=== PATIENT | female | born 1935 | race Hispanic/Latino ===

== ENCOUNTER → 2024-02-01 09:00 | Outpatient (REF) | payer MEDICARE, OTHER, SELFPAY ==
[2024-02-01 10:13] LABS: ALT (SGPT) 24 U/L (0-35); AST (SGOT) 33 U/L (14-36); Alkaline Phosphatase 125 U/L (38-126); Blood Urea Nitrogen 28 mg/dl (7-17); Calcium 9.3 mg/dl (8.4-10.2); Carbon Dioxide 22 mmol/L (22-30); Chloride 109 mmol/L (98-107); Glucose 172 mg/dl (70-99); Potassium 4.5 mmol/L (3.5-5.1); Sodium 140 mmol/L (135-145); Total Bilirubin 0.7 mg/dl (0.2-1.3); Total Protein 7.6 g/dl (6.3-8.2); eGFR > 60.00
== END ==
LOC: REG 09:00
PROVIDERS: ATTENDING PHYSICIAN Family Medicine
DX: E11.29 Type 2 diabetes mellitus with other diabetic kidney complication (principal); E11.9 Type 2 diabetes mellitus without complications; R79.9 Abnormal finding of blood chemistry, unspecified
CPT/HCPCS: 36415; 80053; 83036

== ENCOUNTER 2024-02-15 15:36 | Emergency (ER) | payer MEDICARE, OTHER, SELFPAY ==
[2024-02-15 15:43] VITALS: BP 131/76
--- NOTE | 2024-02-15 18:45 | ED.GENMED ---
History of Present Illness
General
Chief Complaint: Skin Surface Trauma
Source: patient and family
Time Seen by Provider: 02/15/24 18:23
History of Present Illness
History of Present Illness:
89yoF with a history of type 2 diabetes presenting with her son for evaluation after a fall about 3 hours ago. Patient was walking in the driveway taking the trash out without her cane when she fell. She fell forward sustaining a chin laceration.
She denies any LOC. 911 was called by the neighbors. Patient reports developing right sided rib pain since arriving to the ED. She denies any headache, neck pain, abdominal pain, vomiting. She is not on any blood thinners. Son states that her last
Tdap was 2-3 years ago.
Phy Exam
Physical Exam
Physical Exam:
Through and through chin laceration beneath lip measuring approximately 2cm at the skin. No involvement of cindy border.
General Physical Exam
General Presentation: well appearing and no apparent distress
General age: appears stated age
General Skin: warm and dry
General Habitus: normal
General Mental: alert
ENT Exam
ENT Exam: normocephalic
Eye Exam
Eye Exam: PERRL
Cardiovascular Exam
Cardiovascular Exam: regular rate/rhythm
Pulmonary Exam
Pulmonary Exam: lungs clear (+ R sided chest wall tenderness. No ecchymosis or crepitus. Bilateral breath sounds present. ), no respiratory distress, no crackles and no wheezing
Gastrointestinal Exam
Gastrointestinal Exam: non tender, soft and no pulsatile mass
Neurological Exam
Neurological Exam: alert and no motor deficits
Gretchen Coma Scale
Eye Opening: Spontaneous
Verbal Response: Oriented
Motor Response: Obeys Commands
GCS Total Score: 15
Musculoskeletal Exam
Musculoskeletal Exam: other (No cervical spine tenderness with full ROM. No T/L spine tenderness. )
Course
Orders/Labs/Results
Orders:
Orders
02/15/24 18:44
CT Cervical Spine W/o Iv Contr Urgent
Comment:
Reason For Exam: Fall, head strike
CT Chest W/o Iv Contrast Urgent
Comment:
Reason For Exam: R sided rib pain s/p fall
CT Head W/o Iv Contrast Urgent
Comment:
Reason For Exam: Fall, head strike
02/15/24 18:45
Electrocardiogram (*1) Urgent
Reason for Study: Other
Other Reason for Exam: Fall
EKG- Treatment ONCE
02/15/24 18:56
Lidocaine/Epinephrine/Tetracai [Let Topical Anesthetic Gel] 3 ml TOPICAL NOW STA
02/15/24 19:38
Acetaminophen [Tylenol] 1,000 mg PO NOW STA
02/15/24 20:38
Cephalexin Monohydrate [Keflex] 500 mg PO NOW STA
02/15/24 20:43
Incentive Spirometry [Rx Incentive Spirometry] [RESP] Urgent
Frequency: q1h while awake
Vital Signs
Initial and Last Documented VS:
Initial Vital Signs
Temp Pulse Resp BP Pulse Ox
100.2 F 120 18 131/76 96
02/15/24 15:43 02/15/24 15:43 02/15/24 15:43 02/15/24 15:43 02/15/24 15:43
Last Documented Vital Signs
Temp Pulse Resp BP Pulse Ox
97.8 F 108 18 131/76 96
02/15/24 17:13 02/15/24 17:13 02/15/24 15:43 02/15/24 15:43 02/15/24 15:43
Procedures
Laceration Closure
Chin:
Status of Wound: clean
Size of Wound in cm: 2
Description of Wound Edges: ragged
Preparation: cleaned with saline
Anesthesia: 1% Lidocaine and Topical-LET
Type of Closure: layered closure and interrupted sutures
Skin Closure Material: 5-0 nylon and 5-0 chromic gut
Number of sutures: 10
Additional information:
Layered closure performed for through and through chin laceration. Muscular layer repaired with 3 chronic gut deep sutures. Skin was approximated with 4 5-0 nylon sutures. Remaining mucosal laceration was repaired with 3 5-0 vicryl sutures in a
simple interrupted fashion.
MDM/Problems Addressed
Differential Diagnosis Includes:
89yoF presenting after a mechanical fall earlier this evening. Patient presents with a through and through chin laceration. No reported LOC. Only other complaint is right-sided chest pain which is reproducible on exam. Bilateral breath sounds
present. No other injury seen on secondary survey. Patient is hemodynamically stable. Differential diagnosis includes but is not limited to: Laceration, closed head injury, concussion, intracranial hemorrhage, rib fracture, pulmonary contusion,
pneumothorax
Initial ED plan: Check EKG, CT head, CT cervical spine, CT chest. Repair laceration. Tdap is reportedly up-to-date.
*Critical Care Note
Total Time (30-74mins, 75-104mins- exclusive of procedures): Not Applicable
Update Note
Update Note:
Imaging reveals a questionable subtle nondisplaced fracture of the right sixth rib. No other injuries on imaging. Multiple pulmonary nodules incidentally seen on CT which patient and son were notified of. Copy of CT scan report was given to
patient. Laceration was repaired as above. Patient tolerated well without any immediate complications. She was started on Keflex for prophylaxis. Advised PRN Tylenol for pain. Incentive spirometer provided by nursing staff. Discussed need for
suture removal in 5 days. Advise follow-up with PCP and return to the ED without any signs of infection. Patient discharged in stable condition.
ED Attending Note
-
Portions of this chart may have been created with voice recognition software.� Occasional wrong word or��sound alike� substitutions may have occurred due to the inherent limitations of voice recognition software.
Discharge Plan
Departure
Patient Disposition: Home (Routine Discharge)
Date of Disposition: 02/15/24
Time of Disposition: 20:29
Patient with high blood pressure during this ER visit?: No
Discharge Problem:
Complex laceration of chin, Fall, Closed rib fracture, Incidental lung nodule
Instructions: Laceration
Prescriptions:
New
cephalexin 500 mg capsule
500 mg PO QID Qty: 27 0RF
No Action
glipizide 10 mg Tablet
10 mg PO BID
Hold Instructions: Resume on 05/08/23. Ok to resume after ciprofloxacin regimen completes last day ciprofloxacin 05/07 ok to resume glipizide 05/08
alendronate [Fosamax] 70 mg Tablet
70 mg PO TU
cyanocobalamin (vitamin B-12) 1,000 mcg Tablet
1,000 mcg PO DAILY
folic acid 1 mg Tablet
1 mg PO DAILY
cholecalciferol (vitamin D3) [Vitamin D3] 25 mcg (1,000 unit) Tablet
25 mcg PO DAILY
Januvia 100 mg Tablet
100 mg PO DAILY
Hold Instructions: Resume on 05/08/23. last day ciprofloxacin 05/07 resume Januvia 05/08
insulin glargine [Basaglar KwikPen U-100 Insulin] 100 unit/mL (3 mL) insulin pen
22 unit SC HS
omega-3 fatty acids-fish oil 684-1,200 mg Capsule,Delayed Release(Dr/Ec)
1 cap PO DAILY
Hold Instructions: Resume on 04/18/23.
lutein 6 mg Tablet
6 mg PO BID
multivitamin Tablet
1 tab PO DAILY
mupirocin 2 % ointment
1 applic topical BID Qty: 1 0RF
Patient Comments:
Patient started this medication administration on 05/08/23 in the morning. Patient administered this medication today 04/10/23 @ 07:00.
aspirin 325 mg tablet
325 mg PO DAILY Qty: 1 0RF
Rx Instructions:
Take with food
famotidine 20 mg tablet
20 mg PO HS Qty: 30 0RF
Rx Instructions:
post-op
docusate sodium [Colace] 100 mg capsule
100 mg PO BID Qty: 1 0RF
Saccharomyces boulardii [Florastor] 250 mg capsule
250 mg PO BID Qty: 1 0RF
gabapentin 300 mg capsule
300 mg PO HS Qty: 10 0RF
magnesium hydroxide [Milk of Magnesia] 400 mg/5 mL suspension
30 ml PO HS PRN (Reason: Constipation) Qty: 1 0RF
oxycodone 5 mg tablet
5 - 10 mg PO Q6HPRN PRN (Reason: 1 tab moderate-2 tabs severe pain) Qty: 30 0RF
Rx Instructions:
Dx surgery
ongoing therapy
Post-op use
sennosides [Senokot] 8.6 mg tablet
17.2 mg PO BID Qty: 2 0RF
acetaminophen [Tylenol] 325 mg capsule
650 mg PO QID Qty: 2 0RF
ciprofloxacin HCl 500 mg Tablet
500 mg PO BID 6 Days Qty: 12 0RF
Rx Instructions:
Last day of antibiotics 05/07/23
Referrals:
Alexandria Coronado MD [Family Provider] -
Activity Restrictions/Additional Instructions:
Take antibiotics to prevent infection. Keep wound clean and dry and change dressings daily.
Apply ice to affected area. Take Tylenol 650mg every 6 hours as needed for pain.
Please follow-up with your family doctor for the lung nodules seen on your CT scan.
You will need your stitches removed in 5 days.
Return to the ER with any signs of infection.
Interventions
Interventions:
*Risk Screen - Suicide Last Done: 02/15/24 15:48
*General Assessment Last Done: 02/15/24 15:49
*Neglect/Abuse Screening Last Done: 02/15/24 15:48
ED- Fall Risk Assessment Last Done: 02/15/24 15:41
*ED COVID-19 Vaccine History Last Done: 02/15/24 15:44
ED-Skin Assessment Last Done: 02/15/24 15:49
Discharge Date and Time
Print Language: TUNISIAN
[2024-02-15] MEDS: LET TOPICAL ANESTHETIC GEL 3 ML TOPICAL (19:10)
[2024-02-15] MEDS: TYLENOL 1000 MG PO (19:40)
[2024-02-15] MEDS: KEFLEX 500 MG PO (20:52)
== END 2024-02-15 21:03 | disposition home or self-care (01) ==
LOC: EMR 15:36
PROVIDERS: EMERGENCY PHYSICIAN Emergency Medicine; FAMILY PHYSICIAN Family Medicine
DX: S01.81XA Laceration without foreign body of other part of head, initial encounter (principal); S22.31XA Fracture of one rib, right side, initial encounter for closed fracture; W19.XXXA Unspecified fall, initial encounter; R91.1 Solitary pulmonary nodule; E11.9 Type 2 diabetes mellitus without complications
CPT/HCPCS: 99285; 13131; 70450; 71250; 72125; 93005

== ENCOUNTER → 2024-03-13 13:27 | Outpatient (REF) | payer MEDICARE, OTHER, SELFPAY | LOC: RAD 13:27 | PROVIDERS: ATTENDING PHYSICIAN Specialist; FAMILY PHYSICIAN Family Medicine | DX: M25.512 Pain in left shoulder (principal) | CPT/HCPCS: 73200 ==

== ENCOUNTER 2024-03-20 06:51 | Day surgery (SDC) | payer MEDICARE, OTHER, SELFPAY ==
--- NOTE | 2024-03-02 08:54 | CM ---
Patient is scheduled for an elective L Reverse TSA on 03/20/24- she is a same day patient. Spoke with patient's son, Al, prior to surgery. Patient had a L TK Revision at in 2022. Reintroduced role of Orthopedic Navigator. He reports that he and
patient live in a one floor apartment. Currently patient functions independently and uses a cane. She also has a rolling walker. She has had VN services. PCP is Dr. Alexandria Coronado.
Discussed orthopedic program and post surgical plans. Patient will return home when directed by surgeon. Reviewed MD follow up and transition to outpatient therapy. He is in agreement with tentative plan and states that he will be home with patient
and can assist if needed.
Patient will complete online education.
Plan: Orthopedic Navigator will be involved in the care of patient after surgery and will reassess discharge needs at that time.
[2024-03-03 13:34] VITALS: BMI 26.7
[2024-03-03 14:37] LABS: Hematocrit 37.1 % (37.0-47.0); Hemoglobin 12.8 g/dL (12.0-16.0); Mean Corp Hgb Conc. 34.5 g/dL (33.0-37.0); Mean Corpuscular Hgb 30.8 pg (27.0-31.0); Mean Corpuscular Volume 89.4 fL (81.0-99.0); Mean Platelet Volume 10.3 fL (7.4-10.4); Platelet Count 272 10^3/uL (130-400); Red Blood Cell Count 4.15 10^6/uL (4.20-5.40); Red Cell Dist. Width 14.8 % (11.5-14.5); White Blood Cell Count 4.3 10^3/uL (4.8-10.8)
[2024-03-03 14:53] LABS: ALT (SGPT) 28 U/L (0-35); AST (SGOT) 33 U/L (14-36); Albumin 4.1 g/dl (3.5-5.0); Alkaline Phosphatase 140 U/L (38-126); Blood Urea Nitrogen 36 mg/dl (7-17); Calcium 9.5 mg/dl (8.4-10.2); Carbon Dioxide 24 mmol/L (22-30); Chloride 107 mmol/L (98-107); Estimated Creatinine Clearance 28 ml/min; Glucose 93 mg/dl (70-99); Potassium 4.5 mmol/L (3.5-5.1); Sodium 138 mmol/L (135-145); Total Bilirubin 0.5 mg/dl (0.2-1.3); Total Protein 7.5 g/dl (6.3-8.2); eGFR 54.19
[2024-03-04 12:01] LABS: Glycohemoglobin (HgbA1c) 7.9 % (4.0-5.6)
[2024-03-16 11:02] VITALS: BMI 26.7
--- NOTE | 2024-03-16 11:08 | PTCARENOTE ---
Patients 03/03 A1C-7.9- Ramila @ Dr. Sal office notified
[2024-03-20] VITALS (9 sets, daily range): BP systolic 124–175; BP diastolic 65–91
[2024-03-20 06:58] LABS: Glucose - Point of Care 127 mg/dl (70-99)
[2024-03-20] MEDS: CELEBREX 200 MG PO (07:08)
[2024-03-20] MEDS: TYLENOL 1000 MG PO (07:08)
[2024-03-20] MEDS: NORMOSOL-R 1000 IV (07:09)
[2024-03-20] MEDS: BACTROBAN NASAL 1 GRAM NASAL (07:11)
[2024-03-20 09:25] LABS: Glucose - Point of Care 201 mg/dl (70-99)
[2024-03-20] MEDS: NOVOLOG vial 1 UNITS SC (09:58)
[2024-03-20] MEDS: ANCEF 5 IV (12:02)
== END 2024-03-20 12:27 | disposition home or self-care (01) ==
LOC: SDS 06:51
PROVIDERS: ATTENDING PHYSICIAN Specialist; FAMILY PHYSICIAN Family Medicine
DX: M19.012 Primary osteoarthritis, left shoulder (principal); M25.712 Osteophyte, left shoulder; Z96.612 Presence of left artificial shoulder joint
CPT/HCPCS: 23472; C1776; 36415; 73020; 80053; 82962; 83036; 85027; 87070; 93005

== ENCOUNTER 2024-05-07 10:01 | Outpatient (RCR) | payer MEDICARE, OTHER, SELFPAY | END 2024-05-07 23:59 | disposition home or self-care (01) | LOC: RPT 10:01 | PROVIDERS: ATTENDING PHYSICIAN Physician Assistant Surgical; FAMILY PHYSICIAN Family Medicine | DX: M75.122 Complete rotator cuff tear or rupture of left shoulder, not specified as traumatic (principal); Z96.612 Presence of left artificial shoulder joint | CPT/HCPCS: 97010; 97110; 97140; 97162; 97535 ==

== ENCOUNTER 2024-05-25 17:15 | Outpatient (RCR) | payer MEDICARE, OTHER, SELFPAY | END 2024-05-26 10:33 | disposition home or self-care (01) | LOC: RPT 17:15 | PROVIDERS: ATTENDING PHYSICIAN Physician Assistant Surgical; FAMILY PHYSICIAN Family Medicine | DX: Z47.1 Aftercare following joint replacement surgery (principal); M75.122 Complete rotator cuff tear or rupture of left shoulder, not specified as traumatic; M25.512 Pain in left shoulder; Z73.6 Limitation of activities due to disability; Z96.612 Presence of left artificial shoulder joint | CPT/HCPCS: 97010; 97110; 97140 ==

== ENCOUNTER → 2024-06-05 08:56 | Outpatient (REF) | payer MEDICARE, OTHER, SELFPAY ==
[2024-06-05 10:58] LABS: ALT (SGPT) 20 U/L (0-35); AST (SGOT) 30 U/L (14-36); Albumin 4.3 g/dl (3.5-5.0); Alkaline Phosphatase 84 U/L (38-126); Blood Urea Nitrogen 24 mg/dl (7-17); Calcium 9.4 mg/dl (8.4-10.2); Carbon Dioxide 24 mmol/L (22-30); Chloride 105 mmol/L (98-107); Glucose 117 mg/dl (70-99); HDL Cholesterol 52 mg/dl; LDL Cholesterol, Calculated 103 mg/dl; Potassium 4.6 mmol/L (3.5-5.1); Sodium 142 mmol/L (135-145); Total Bilirubin 0.6 mg/dl (0.2-1.3); Total Cholesterol 178 mg/dl (50-199); Total Protein 7.5 g/dl (6.3-8.2); Triglyceride 118 mg/dl (10-149); Very Low Density Lipoprotein 23 mg/dl (0-30); eGFR > 60.00
[2024-06-05 13:58] LABS: Glycohemoglobin (HgbA1c) 7.1 % (4.0-5.6)
== END ==
LOC: REG 08:56
PROVIDERS: ATTENDING PHYSICIAN Family Medicine
DX: E11.65 Type 2 diabetes mellitus with hyperglycemia (principal); E11.29 Type 2 diabetes mellitus with other diabetic kidney complication; R80.9 Proteinuria, unspecified; E78.00 Pure hypercholesterolemia, unspecified; E11.9 Type 2 diabetes mellitus without complications; N17.9 Acute kidney failure, unspecified
CPT/HCPCS: 36415; 80053; 80061; 83036

== ENCOUNTER → 2025-01-29 08:50 | Outpatient (REF) | payer MEDICARE, OTHER, SELFPAY ==
[2025-01-29 10:22] LABS: ALT (SGPT) 16 U/L (0-35); AST (SGOT) 22 U/L (14-36); Albumin 3.9 g/dl (3.5-5.0); Alkaline Phosphatase 77 U/L (38-126); Blood Urea Nitrogen 25 mg/dl (7-17); Carbon Dioxide 20 mmol/L (22-30); Chloride 116 mmol/L (98-107); Glucose 86 mg/dl (70-99); Potassium 4.1 mmol/L (3.5-5.1); Sodium 144 mmol/L (135-145); Total Bilirubin 0.5 mg/dl (0.2-1.3); Total Protein 7.2 g/dl (6.3-8.2); eGFR > 60.00
[2025-01-29 10:56] LABS: Microalbumin, Random Urine 8.8 mg/dl (0.6-1.7); Microalbumin/creatinine Ratio 134.6 mg/g
[2025-01-29 11:23] LABS: Glycohemoglobin (HgbA1c) 7.9 % (4.0-5.6)
== END ==
LOC: REG 08:50
PROVIDERS: ATTENDING PHYSICIAN Family Medicine; FAMILY PHYSICIAN Family Medicine
DX: E11.65 Type 2 diabetes mellitus with hyperglycemia (principal); E11.29 Type 2 diabetes mellitus with other diabetic kidney complication
CPT/HCPCS: 36415; 80053; 82043; 82570; 83036

== ENCOUNTER 2025-05-18 05:35 | Inpatient (IN) | payer MEDICARE, OTHER, SELFPAY ==
[2025-05-17 21:53] VITALS: BP 115/71
[2025-05-17 22:09] LABS: Hematocrit 41.4 % (37.0-47.0); Hemoglobin 14.7 g/dL (12.0-16.0); Mean Corp Hgb Conc. 35.5 g/dL (33.0-37.0); Mean Corpuscular Volume 87.7 fL (81.0-99.0); Nucleated Red Blood Cells % 0 %; Platelet Count 248 10^3/uL (130-400); Red Cell Dist. Width 13.3 % (11.5-14.5)
[2025-05-17 22:34] LABS: ALT (SGPT) 22 U/L (0-35); AST (SGOT) 21 U/L (14-36); Albumin 3.6 g/dl (3.5-5.0); Alkaline Phosphatase 75 U/L (38-126); Blood Urea Nitrogen 72 mg/dl (7-17); Calcium 8.1 mg/dl (8.4-10.2); Carbon Dioxide 21 mmol/L (22-30); Chloride 95 mmol/L (98-107); Glucose 335 mg/dl (70-99); Lipase 152 U/L (23-300); Potassium 4.4 mmol/L (3.5-5.1); Sodium 126 mmol/L (135-145); Total Protein 7.0 g/dl (6.3-8.2); eGFR 43.27
[2025-05-18] VITALS (19 sets, daily range): BP systolic 77–134; BP diastolic 41–68; BMI 23.1
[2025-05-18] MEDS: NSS 500 IV ×2 (01:14→05:19)
[2025-05-18] MEDS: ZOFRAN 4 MG IV (01:14)
[2025-05-18] MEDS: DILAUDID 0.5 MG IV ×4 (01:15→23:49)
--- NOTE | 2025-05-18 01:52 | ED.GENMED ---
History of Present Illness
General
Chief Complaint: Abdominal Pain
Source: patient and family
Time Seen by Provider: 05/18/25 00:39
History of Present Illness
History of Present Illness:
Note:
CHIEF COMPLAINT(S)
Suspected gallbladder problem.
HISTORY OF PRESENT ILLNESS
The patient is an 89-year-old female presenting with abdominal discomfort, specifically suspecting gallbladder issues. The symptoms began during a recent trip to [place]. While there, the patient saw two doctors and had an ultrasound, suspecting a
gallbladder blockage. No previous history of gallbladder issues was noted. The patient reports feeling nauseous but has not vomited. She experiences a sensation of needing to vomit, accompanied by abdominal pain and difficulty with bowel movements,
noting very limited output. There is reported tenderness on the right side of the abdomen. Despite these symptoms, there are no signs of diarrhea or respiratory distress. The patient was advised against surgical intervention in [place] and returned
to seek treatment closer to home.
Additional historian
Son states that he wanted to bring her back to the [facility] to deal with her gallbladder issues
PAST MEDICAL AND SURGICAL HISTORY
The patient has a history of diabetes and has undergone knee and shoulder replacement surgeries.
CHRONIC MEDICAL CONDITIONS SIGNIFICANTLY AFFECTING CARE
Diabetes.
ALLERGIES
No known medication allergies.
PAST SURGICAL HISTORY
Knee replacement and shoulder replacement.
MEDICATIONS
The patient is currently not taking any blood thinning medications.
REVIEW OF SYSTEMS
- Gastrointestinal: Abdominal pain, nausea without vomiting, difficulty with bowel movements.
- General: No respiratory distress.
PHYSICAL EXAM
General: Alert, no acute distress.
Skin: Warm, dry.
Head: Normocephalic, atraumatic.
Neck: Supple, trachea midline.
Eye Ears, Nose, Mouth and Throat: Oral mucosa moist.
Cardiovascular: Normal peripheral perfusion, No edema.
Respiratory: Respirations are non-labored.
Gastrointestinal: Severe tenderness noted in the right upper abdomen, most significantly in the right upper quadrant, without rebound or guarding.
Back: Normal range of motion, Normal alignment.
Musculoskeletal: Normal range of motion, normal strength.
Neurological: Alert and oriented to person, place, time, and situation, No focal neurological deficit observed.
Psychiatric: Cooperative, appropriate mood & affect.
PLAN
1. Administer pain management as necessary.
2. Obtain blood work and imaging of the abdomen to assess for gallbladder pathology.
3. Monitor for changes in the patient�s condition and respond appropriately.
DIFFERENTIAL DIAGNOSIS
The Differential Diagnosis includes, in no particular order and is not limited to:
1. Cholelithiasis
2. Cholecystitis
3. Biliary colic
4. Pancreatitis
5. Peptic ulcer disease
6. Gastroenteritis
7. Hepatitis
8. Intestinal obstruction
9. Gastritis
10. Appendicitis
Disposition:
SUMMARY OF ENCOUNTER
The patient is an 89-year-old female who presented to the emergency department with persistent abdominal pain. She was recently diagnosed with an issue related to the gallbladder while she was in [place]. The patient does not have a history of
diabetes. Upon evaluation, she was found to have moderate to severe abdominal pain, although she has no leukocytosis. Her CBC is within normal limits. Chemistry results revealed hyponatremia with sodium at 126 mmol/L, elevated creatinine at 1.2
mg/dL, and blood glucose elevated at 335 mg/dL. Lactic acid levels were normal at 1.7 mmol/L. Both troponin and lipase levels were normal. A CT scan indicated acute cholecystitis with questionable evidence of gangrene. The case was discussed with
General Surgery and with the hospitalist for further management.
DISPOSITION
Admit for further management of hyponatremia, hyperglycemia, and acute cholecystitis.
ASSESSMENT
Acute cholecystitis with questionable gangrene and electrolyte imbalances such as hyponatremia and hyperglycemia.
EMERGENCY TREATMENTS ADMINISTERED
IV piperacillin-tazobactam was administered, and IV fluids were given.
MANAGEMENT OF THE PATIENTS CARE WAS DISCUSSED WITH
Discussion with General Surgery (Dr. Cruz) and the hospitalist, regarding the patients case and management plan.
PLAN
Admit for further management of hyponatremia, hyperglycemia, and acute cholecystitis. Implement appropriate interventions to correct electrolyte imbalances and address acute gallbladder issues.
INDEPENDENT REVIEW OF LABS AND INTERPRETATION OF TESTS
- My independent review of the CBC reveals no leukocytosis.
- My independent review of a basic chemistry panel indicates hyponatremia with sodium at 126 mmol/L, elevated creatinine at 1.2 mg/dL, and blood glucose at 335 mg/dL.
- My independent review of lactic acid shows normal levels at 1.7 mmol/L.
- lipase levels were normal.
RADIOLOGY RESULTS
- My independent interpretation of the CT scan shows acute cholecystitis with questionable evidence of gangrene changes.
MEDICATION RECONCILIATION
IV piperacillin-tazobactam (Zosyn) administered in the ED.
MEDICAL DECISION MAKING
- Number and Complexity of Problems Addressed: Chronic conditions affecting care include hyponatremia, hyperglycemia, and acute cholecystitis.
- Data:
- Category 1: Lab tests reviewed include CBC, chemistry panel, lactic acid, troponin, and lipase. CT scan independently interpreted.
- Category 3: Management was discussed with General Surgery and the hospitalist.
- Risk: Admission considered necessary due to electrolyte imbalances and the potential severity of cholecystitis with questionable gangrene.
DIAGNOSIS
- Acute cholecystitis with potential gangrene changes (ICD-10: K81.0).
- Hyponatremia (ICD-10: E87.1).
- Hyperglycemia, unspecified (ICD-10: R73.9).
Phy Exam
Physical Exam
Physical Exam:
.
Course
Orders/Labs/Results
Orders:
Orders
05/17/25 22:00
Complete Blood Count/With Diff Urgent
Comprehensive Metabolic Panel Urgent
Lactic Acid Urgent
Lipase Urgent
05/18/25 00:48
CT Abd/Pel (IV only)-DH only Urgent
Comment:
Reason For Exam: diffuse abd pain, h/o GB issues
Urinalysis Reflex To Culture Urgent
Date Specimen was Collected: 05/18/25
Time Specimen was Collected: 01:20
0.9% Sodium Chloride 500 ml [Nss] 500 ml IV BOLUS
HYDROmorphone [Dilaudid] 0.5 mg IV NOW STA
Ondansetron Injectable [Zofran] 4 mg IV NOW STA
05/18/25 01:09
Lactic Acid Urgent
05/18/25 01:51
Piperacillin/Tazo 3.375 Gram [Zosyn] 3.375 gram in 50 ml IV NOW
Abnormal Lab Results
05/17/25 05/18/25
22:00 02:43
WBC 14.3 H 10^3/uL
(4.8-10.8)
MCH 31.1 H pg
(27.0-31.0)
Abs Immat Gran (auto) 0.1 H 10^3/uL
(0-0.05)
Absolute Neuts (auto) 12.9 H 10^3/uL
(1.4-6.5)
Absolute Lymphs (auto) 0.4 L 10^3/uL
(1.2-3.4)
Absolute Monos (auto) 0.8 H 10^3/uL
(0.1-0.6)
Immature Gran % 0.6 H %
(0-0.5)
Neutrophils % 90.0 H %
(42.2-75.2)
Lymphocytes % 3.1 L %
(20.5-51.1)
Sodium 126 L mmol/L
(135-145)
Chloride 95 L mmol/L
(98-107)
Carbon Dioxide 21 L mmol/L
(22-30)
BUN 72 H mg/dl
(7-17)
Creatinine 1.2 H mg/dL
(0.6-1.0)
Glucose 335 H mg/dl
(70-99)
Calcium 8.1 L mg/dl
(8.4-10.2)
POC Glucose 318 H mg/dl
(70-99)
05/17/25 22:00
05/17/25 22:00
Vital Signs
Initial and Last Documented VS:
Initial Vital Signs
Temp Pulse Resp BP Pulse Ox
97.4 F 106 20 115/71 99
05/17/25 21:53 05/17/25 21:53 05/17/25 21:53 05/17/25 21:53 05/17/25 21:53
Last Documented Vital Signs
Temp Pulse Resp BP Pulse Ox
97.4 F 106 20 134/68 94
05/17/25 21:53 05/17/25 21:53 05/17/25 21:53 05/18/25 02:10 05/18/25 02:15
*Pulse Oximetry
SaO2: 96
Oxygen Mode of Delivery: Room air
Patient hypoxic: no
*Critical Care Note
Total Time (30-74mins, 75-104mins- exclusive of procedures): 30 minutes
ED Attending Note
-
Portions of this chart may have been created with voice recognition software.� Occasional wrong word or��sound alike� substitutions may have occurred due to the inherent limitations of voice recognition software.
Discharge Plan
Departure
Patient Disposition: Admit
Date of Disposition: 05/18/25
Time of Disposition: 01:51
Admit to: Telemetry
Presentation/result/management discussed w/ accepting MD/DO: Hospitalist
Discharge Problem:
Acute cholecystitis, Acute hyperglycemia
Prescriptions:
No Action
alendronate [Fosamax] 70 mg Tablet
70 mg PO TU
cyanocobalamin (vitamin B-12) 1,000 mcg Tablet
1,000 mcg PO DAILY
folic acid 1 mg Tablet
1 mg PO DAILY
cholecalciferol (vitamin D3) [Vitamin D3] 25 mcg (1,000 unit) Tablet
25 mcg PO DAILY
insulin glargine [Basaglar KwikPen U-100 Insulin] 100 unit/mL (3 mL) insulin pen
22 unit SC HS
omega-3 fatty acids-fish oil 684-1,200 mg Capsule,Delayed Release(Dr/Ec)
1 cap PO DAILY
lutein 6 mg Tablet
6 mg PO BID
multivitamin Tablet
1 tab PO DAILY
mupirocin 2 % ointment
1 applic topical BID Qty: 1 0RF
Patient Comments:
glipizide 10 mg Tablet
10 mg PO BID
Januvia 100 mg Tablet
100 mg PO DAILY
Ozempic 0.25 mg or 0.5 mg (2 mg/3 mL) Pen Injector
0.25 mg SC WEEKLY
docusate sodium [Colace] 100 mg capsule
100 mg PO BID PRN (Reason: stool softner)
acetaminophen 500 mg capsule
1,000 mg PO Q6H MDD 4000mg PRN (Reason: Pain) Qty: 60 0RF
aspirin 325 mg tablet
325 mg PO DAILY Qty: 30 0RF
celecoxib [Celebrex] 100 mg capsule
100 mg PO BID Qty: 30 0RF
ondansetron 4 mg tablet,disintegrating
4 mg PO Q8H Qty: 14 0RF
oxycodone 5 mg tablet
5 mg PO Q6H PRN (Reason: Pain) Qty: 30 0RF
cefadroxil 500 mg capsule
500 mg PO BID Qty: 14 0RF
docusate sodium [Colace] 100 mg capsule
100 mg PO BID Qty: 14 0RF
Referrals:
Alexandria Coronado MD [Family Provider, Family Practice]
Interventions
Interventions:
*Risk Screen - Suicide Last Done: 05/18/25 00:58
*General Assessment Last Done: 05/17/25 21:53
*Neglect/Abuse Screening Last Done: 05/18/25 00:58
*ED- Fall Risk Assessment Last Done: 05/18/25 00:58
*ED COVID-19 Vaccine History Last Done: 05/18/25 00:58
*ED Influenza Vaccine History Last Done: 05/18/25 00:58
TY-Gvthag-Jvreeyafll Assessment Last Done: 05/18/25 00:58
Discharge Date and Time
Print Language: [email or web address]
[2025-05-18] MEDS: ZOSYN 50 IV ×4 (02:13→19:50)
[2025-05-18 02:44] LABS: Glucose - Point of Care 318 mg/dl (70-99)
[2025-05-18] MEDS: NOVOLOG vial 6 UNITS SC (02:51)
--- NOTE | 2025-05-18 05:15 | HPS.HSE ---
Family Physician
-
Family Physician: Alexandria Coronado
Chief Complaint
-
Abd Pain
History of Present Illness
Patient is an 89y F with PMH significant for DM-II who presents to ED complaining of abdominal pain and N/V. History obtained from patient and family with family serving as educational interpreter. Patient has been complaining of mild / intermittent R
flank and abdominal pain for about 2 weeks now. Initially, symptoms were attributed to musculoskeletal source; however, they increased significantly last week. Patient was visiting family in [place] at the time. She was seen by a physician there
who suspected gallbladder disease and she was placed on multiple medications - simethicone, probiotics, antispasmodics, injectable Toradol, etc - with no significant improvement in her symptoms. On Saturday she was seen by a second physician who
recommended surgery for her gallbladder. Patient / family did not wish to pursue this in [place] and returned home to [place] for further evaluation.
Patient presented directly to the ED upon her return.
Medical History
Past Medical History
Past Medical History: Reports Other
Additional Past Medical History:
DM-II
Osteoporosis
CKD
Past Surgical History: Reports Other
Additional Past Surgical History:
Bilateral TKA
Left TSA
Social History
Tobacco: Non-smoker
Alcohol: None
Drug: None
Family History
Family History: Not pertinent
Allergies / Home Medications
Allergies reflects when Allergies were last updated in [facility].
Home Medications with original date entered in [facility]
Allergy/Medication List:
Allergies
Allergy/AdvReac Type Severity Reaction Status Date / Time
vancomycin AdvReac vancomycin Verified 05/17/25 21:52
infusion
reaction
04/28/23
Home Medications
alendronate 70 mg tablet (Fosamax) 70 mg PO TU 09/01/22
cholecalciferol (vitamin D3) 25 mcg (1,000 unit) tablet (Vitamin D3) 25 mcg PO DAILY Supplement 09/01/22
cyanocobalamin (vitamin B-12) 1,000 mcg tablet 1,000 mcg PO DAILY Supplement 09/01/22
folic acid 1 mg tablet 1 mg PO DAILY Supplement 09/01/22
insulin glargine 100 unit/mL (3 mL) subcutaneous pen (Basaglar KwikPen U-100 Insulin) 18 unit SC HS Diabetes 09/01/22
omega-3 fatty acids-fish oil 684 mg-1,200 mg capsule,delayed release 1 cap PO DAILY Supplement 09/01/22
lutein 6 mg tablet 6 mg PO BID Supplement 02/04/23
multivitamin 1 tab PO DAILY Supplement 02/07/23
glipizide 10 mg tablet 10 mg PO BID 03/12/24
sitagliptin phosphate 100 mg tablet (Januvia) 100 mg PO DAILY 03/12/24
Review of Systems
-
History Source: Patient
A 12 point ROS was completed and negative except as noted: Yes
Constitutional: Reports Fatigue; Denies Fever or Chills
Respiratory: Denies Cough or Trouble Breathing
Cardiac: Denies Chest Pain or Palpitations
Abdomen/GI: Reports Abdominal Pain, Nausea and Vomiting; Denies Diarrhea
: Denies Dysuria or Frequency
Musculoskeletal: Denies Joint Pain or Edema
Neurological: Denies Dizzy or Headache
Physical Exam
Vital Signs
Vital Signs
Temp Pulse Resp BP Pulse Ox
97.4 F 106 20 134/68 94
05/17/25 21:53 05/17/25 21:53 05/17/25 21:53 05/18/25 02:10 05/18/25 02:15
Physical Exam
General: Other (89y F in no acute distress.)
HEENT: Other (Dry MM. Neck supple.)
Respiratory: Clear; No Wheezes, Rales or Rhonchi
Cardiac: S1/S2 and Regular Rhythm; No Murmur
GI: Other (Adomen is soft. Pos RUQ tenderness with guarding.)
Musculoskeletal: No Clubbing, No Cyanosis and No Edema
Neuro: AO x 3
Laboratory Results
-
05/17/25 22:00
05/17/25 22:00
Laboratory Results
Lactic Acid 1.7 mmol/L (0.7-2.0) 05/18/25 01:09
Total Bilirubin 0.8 mg/dl (0.2-1.3) 05/17/25 22:00
AST 21 U/L (14-36) 05/17/25 22:00
ALT 22 U/L (0-35) 05/17/25 22:00
Alkaline Phosphatase 75 U/L (38-126) 05/17/25 22:00
Lipase 152 U/L (23-300) 05/17/25 22:00
Impression/Plan
-
A/P: Patient is an 89y F with PMH significant for DM-II and CKD who presents to ED complaining of abdominal pain.
Acute Cholecystitis
Sepsis secondary to the above
- Admit for further evaluation and treatment.
- Patient presents with tachycardia, tachypnea, leukocytosis and exam / imaging consistent with cholecystitis.
- IV Zosyn, NPO, IVFs, pain control.
- Surgery consulted for further evaluation / possible cholecystectomy.
- Follow for clinical improvement.
Hyponatremia
JOANIE on CKD II
- Na = 126 (corrected to 130 for hyperglycemia). SCr = 1.2 compared to baseline of 0.9.
- Likely hypovolemia due to poor intake, N/V.
- Possible increased ADH due to pain / nausea.
- IVFs overnight and follow for changes in labs / lytes.
DM-II
- Hyperglycemic on admission - likely due to acute infection.
- Continue basal insulin at decreased dose while NPO.
- Hold PO medications acutely.
- Follow glucose and cover with SSI as needed.
- Update A1C.
DVT Prophylaxis: SCDs
Code Status: Full
[2025-05-18] MEDS: LR 1000 IV ×2 (08:06→19:50)
[2025-05-18] MEDS: PROTONIX IV 40 MG IV (08:06)
[2025-05-18 08:13] LABS: Glucose - Point of Care 83 mg/dl (70-99)
--- NOTE | 2025-05-18 09:16 | CON.GS ---
Medical History
-
Chief Complaint: RUQ pain
History of Present Illness:
Patient is an 89 yo F with a PMH notable for osteoporosis, IDDM, CKD, and s/p bl TKA and L TSA who presents with 2 to 3 weeks of upper abdominal discomfort. Patient is Solomon Islander-speaking only and a poor historian. The majority of her history was
obtained through chart review and in speaking directly with the son. He reports issues with abdominal discomfort and nausea for 2 to 3 weeks. No fevers or chills. No diarrhea. No jaundice, pale stools, or tea colored urine. Denies any prior
attacks of abdominal discomfort or issues as a relates to her gallbladder. No family history of gallbladder disease.
Past Medical History
Past Medical History: IDDM, Renal Failure and Other (Osteoporosis)
Past Surgical History: Orthopedic (bl TKA, L TSA)
Social History
Tobacco: Non-Smoker
Alcohol: None
Drug: None
Family History
Family History: Reviewed & Noncontributory
Allergies / Home Medications
Allergy/AdvReac Type Severity Reaction Status Date / Time
vancomycin AdvReac vancomycin Verified 05/17/25 21:52
infusion
reaction
04/28/23
�Medication �Instructions �Recorded �Confirmed �Type
alendronate 70 mg tablet (Fosamax) 70 mg PO TU 09/01/22 05/18/25 History
cholecalciferol (vitamin D3) 25 25 mcg PO DAILY Supplement 09/01/22 05/18/25 History
mcg (1,000 unit) tablet (Vitamin
D3)
cyanocobalamin (vitamin B-12) 1,000 mcg PO DAILY Supplement 09/01/22 05/18/25 History
1,000 mcg tablet
folic acid 1 mg tablet 1 mg PO DAILY Supplement 09/01/22 05/18/25 History
omega-3 fatty acids-fish oil 684 1 cap PO DAILY Supplement 09/01/22 05/18/25 History
mg-1,200 mg capsule,delayed release
lutein 6 mg tablet 6 mg PO BID Supplement 02/04/23 05/18/25 History
multivitamin 1 tab PO DAILY Supplement 02/07/23 05/18/25 History
glipizide 10 mg tablet 10 mg PO BID 03/12/24 05/18/25 History
sitagliptin phosphate 100 mg 100 mg PO DAILY 03/12/24 05/18/25 History
tablet (Januvia)
insulin degludec 100 unit/mL (3 18 unit SC HS 05/18/25 05/18/25 History
mL) subcutaneous pen
psyllium 1 packet PO DAILYPRN PRN 05/18/25 05/18/25 History
constipation
semaglutide 0.25 mg or 0.5 mg (2 0.25 mg SC SA 05/18/25 05/18/25 History
mg/3 mL) subcutaneous pen injector
(Ozempic)
Review of Systems
-
A 10 point review of systems was completed, and was negative except as per HPI.
Physical Exam
Vital Signs
Temp Pulse Resp BP Pulse Ox
97.4 F 87 25 105/63 97
05/17/25 21:53 05/18/25 09:00 05/18/25 09:00 05/18/25 09:00 05/18/25 09:00
05/17/25 05/18/25 05/19/25
06:59 06:59 06:59
Actual Weight 53.6 kg
Body Mass Index (BMI) 23.1
Lab Results
05/17/25 22:00
05/17/25 22:00
WBC 14.3 10^3/uL (4.8-10.8) H 05/17/25 22:00
Hgb 14.7 g/dL (12.0-16.0) 05/17/25 22:00
Hct 41.4 % (37.0-47.0) 05/17/25 22:00
Plt Count 248 10^3/uL (130-400) 05/17/25 22:00
Abs Immat Gran (auto) 0.1 10^3/uL (0-0.05) H 05/17/25 22:00
Neutrophils % 90.0 % (42.2-75.2) H 05/17/25 22:00
Physical Exam
General: Other (Weak, frail)
HEENT: Normocephalic and Anicteric
Respiratory: Non Labored Respirations
Cardiac: Regular Rhythm
GI: Soft, Non Distended, Tender (RUQ, positive Brandon's sign) and Other (Focally peritoneal in RUQ)
Skin: Warm and Dry
Neuro: Nonfocal/Grossly Intact
Data Reviewed
-
CT Scan: Image Personally Visualized and interpreted
Labs: Labs Reviewed by me
Assessment / Plan
-
Patient is an 89 yo F p/w acute cholecystitis
The natural history and pathophysiology of biliary and stone disease was discussed. Anatomy was reviewed utilizing pictorial images. Workup thus far including labs and CT scan imaging were reviewed. Options for management including medical
management with antibiotics and bowel rest, procedural management with IR cholecystostomy tube, and surgical management with cholecystectomy were considered and discussed. Pros and cons of all approaches was discussed. Specifically, we discussed
likely failure of medical management with slow decline in her health and possible , logistical issues with cholecystostomy tube placement and delays in decision making regarding cholecystectomy versus IR tube drainage for life, and surgical
risks. She is at increased surgical risks given her age, general medical condition, and delay in presentation. Patient and family would like to proceed with surgical management.
Plan for a laparoscopic possible open cholecystectomy with possible cholangiogram. The procedure itself, as well as the risks, benefits, and alternatives was discussed. Specifically, we we discussed the risks of bleeding, infection, injury to
surrounding structures (bowel, bile ducts), CBD injury, bile leak, and general anesthetic complications. Of note, a nuanced discussion was had regarding the potential need for a subtotal cholecystectomy. Typical post procedure recovery was
discussed. All questions answered.
-- Lap kam with IOC
-- NPO, IVF
-- Abx: Zosyn
-- Admitted to Medicine for DM
--- NOTE | 2025-05-18 09:32 | W.SUR.PREOP ---
Addendum entered and electronically signed by Ephraim Cruz MD 05/18/25 16:43:
Case has been moved to tomorrow due to OR availability. Nurse and family upated.
Original Note:
Pre-Operative Surgical Note
-
I have examined this patient prior to the performance of the scheduled procedure.
The patient's condition is unchanged from the time of the current History and
Physical and the patient is able to undergo the scheduled procedure.
--- NOTE | 2025-05-18 09:44 | EDCM ---
CM reviewed chart and met with pt's son Al bedside in ED. Pt is primarily Vietnamese speaking. They live in 2 story home along with pt's other son, [address], first floor half bath, full flight to second floor bedroom and full bath.
Independent in personal care and ambulation, uses cane. Needs assistance with ADLs but still cooks per son.
Confirms prescription coverage.
Hx VN in past, unsure of agency, Hx SNF 10 years ago.
PCP: Alexandria Coronado
Pharmacy: [facility] in [facility]
Anticipate discharge home, CM will continue to follow for any discharge planning needs.
[2025-05-18 11:09] LABS: Urine Character Clear (Clear)
--- NOTE | 2025-05-18 11:18 | W.PN.HOSP.TC ---
Today's Communication/Plan
-
IV antibiotics
Plan for laparoscopic low cystectomy with intraoperative cholangiogram.
IV fluids.
Monitor and manage blood glucose.
Follow for hyponatremia postoperatively.
Assessment / Plan
Assessment / Plan
Impression/plan
A/P: Patient is an 89y F with PMH significant for DM-II and CKD who presents to ED complaining of abdominal pain.
Acute Cholecystitis
Sepsis secondary to the above
- Patient presents with tachycardia, tachypnea, leukocytosis and exam / imaging consistent with cholecystitis.
- IV Zosyn, NPO, IVFs, pain control.
- Surgery consulted with plan for laparoscopic cholecystectomy and intraoperative cholangiogram
Hyponatremia
JOANIE on CKD II
- Na = 126 (corrected to 130 for hyperglycemia). SCr = 1.2 compared to baseline of 0.9.
- Likely hypovolemia due to poor intake, N/V.
- Possible increased ADH due to pain / nausea.
- IVFs overnight and follow for changes in labs / lytes.
DM-II. Preadmission regimen including Ozempic, Januvia, glipizide, Lantus 18 units at bedtime,
- Hyperglycemic on admission - likely due to acute infection.
- Continue basal insulin at decreased dose while NPO.
- Hold PO medications acutely.
- Follow glucose and cover with SSI as needed.
- Update A1C.
DVT Prophylaxis: SCDs
Code Status: Full
Anticipated Discharge: > 48 hours
Subjective/Interval History
-
Date of Service: May 18, 2025
Objective Data
-
Vital Signs:
Vital Signs
Temp Pulse Resp BP Pulse Ox
97.4 F 96 19 105/57 96
05/17/25 21:53 05/18/25 11:00 05/18/25 11:00 05/18/25 11:00 05/18/25 11:00
I&O
05/17/25 05/18/25 05/19/25
06:59 06:59 06:59
Output Total 350 / 350
Balance -350 / -350
Physical Exam
-
General: Well Developed and No Apparent Distress
HEENT: Normocephalic, Atraumatic and Moist Mucous Membranes
Respiratory: Clear to Auscultation
Cardiac: Regular Rhythm and S1/S2; Negative Murmur, Rub or Gallop
GI: Soft, Nondistended, Normal Bowel Sounds and Other (Right upper quadrant tenderness); Negative Nontender or Organomegaly
Rectal: Deferred by Provider
Musculoskeletal: No Clubbing, No Cyanosis and No Edema
Skin: Negative Rash
Neuro: Awake, Alert, Oriented and Nonfocal/Grossly Intact
[2025-05-18 11:20] LABS: Urine Squamous Cell >30 /LPF (Few)
[2025-05-18 11:21] LABS: Urine Red Blood Cell 0-2 /HPF (0-2)
[2025-05-18 12:15] LABS: Glucose - Point of Care 88 mg/dl (70-99)
--- NOTE | 2025-05-18 13:26 | PTCARENOTE ---
Patient arrived to IMU from ED. Slid from stretcher to bed. AOx3. Maori speaking. Quill Machine Operator utilized. Son at bedside. NSR on monitor. BP soft, but MAP >65. Assisted to bedside commode assist x1. Denies pain. NPO for OR. CHG wipes done. LR running
at 100/hr. Call tilley within reach, bed in lowest position, and bed of wheels locked.
--- NOTE | 2025-05-18 16:28 | VATNOTE ---
RUE swelling distal cms intact, md skelton aware, will order us
--- NOTE | 2025-05-18 17:01 | W.PN.UPDATE ---
Update Note
Progress Note Update
Cross cover--> I was informed canceled the OR today/started back on diabetic diet tonight and n.p.o. after midnight.
[2025-05-18 17:16] LABS: Glucose - Point of Care 112 mg/dl (70-99)
[2025-05-18 23:17] LABS: Glucose - Point of Care 152 mg/dl (70-99)
[2025-05-18] MEDS: LANTUS 0.1 UNITS SC (23:46)
[2025-05-19] VITALS (16 sets, daily range): BP systolic 93–128; BP diastolic 45–66; BMI 23.6
[2025-05-19] MEDS: ZOSYN 50 IV ×4 (02:56→19:36)
--- NOTE | 2025-05-19 04:02 | PTCARENOTE ---
Pt having pain over night, see mar for social media marketer. Pt NPO at midnight plan for OR 05/19. US RUE shows no evidence of venous thrombosis. Son at bed side to help with care when needed. Pt requiring 2L NC while sleeping to maintain spo2 goal 92%.
Respirations even unlabored. Assessment care and vitals as charted.
[2025-05-19 07:21] LABS: ALT (SGPT) 29 U/L (0-35); AST (SGOT) 39 U/L (14-36); Albumin 2.6 g/dl (3.5-5.0); Alkaline Phosphatase 87 U/L (38-126); Blood Urea Nitrogen 32 mg/dl (7-17); Calcium 7.6 mg/dl (8.4-10.2); Carbon Dioxide 25 mmol/L (22-30); Chloride 109 mmol/L (98-107); Estimated Creatinine Clearance 27 ml/min; Glucose 93 mg/dl (70-99); Potassium 4.1 mmol/L (3.5-5.1); Sodium 137 mmol/L (135-145); Total Protein 5.1 g/dl (6.3-8.2); eGFR 53.85
[2025-05-19 07:29] LABS: Hematocrit 33.4 % (37.0-47.0); Hemoglobin 11.3 g/dL (12.0-16.0); Mean Corp Hgb Conc. 33.8 g/dL (33.0-37.0); Mean Corpuscular Volume 90.8 fL (81.0-99.0); Platelet Count 231 10^3/uL (130-400); Red Cell Dist. Width 13.9 % (11.5-14.5)
[2025-05-19] MEDS: PROTONIX IV 40 MG IV (07:35)
[2025-05-19] MEDS: DILAUDID 0.5 MG IV (07:35)
[2025-05-19] MEDS: LR 1000 IV ×2 (07:36→20:46)
[2025-05-19 07:54] LABS: Glucose - Point of Care 87 mg/dl (70-99)
--- NOTE | 2025-05-19 12:01 | W.IMMPOSTOP ---
Surgical Immed Post Op Note
-
Primary Surgeon: Alayna
Assisting: Taylor REYES
Pre-op Diagnosis: ACC
Post-op Diagnosis: Same
Procedure Performed: Robotic cholecystectomy with intraoperative near infared imaging of major extrahepatic bile ducts
Anesthesia Type: GETA
Specimen / Cultures: Gallbladder
Estimated Blood Loss: 25cc
Complications: None immediate
Operative Findings: Tensely distended severely inflamed gallbladder with early gangrenous changes; edematous tissues adherent to the infundibulum were gently swept down bluntly; some yellow pus encountered and hydropic fluid during gallbladder
dissection, many tiny pigmented stones spilled and were maximally retrieved
--- NOTE | 2025-05-19 12:04 | OR.RPT ---
Operative Report
Operative Report
Primary Surgeon: Alayna
Assisting: Taylor REYES
Pre-op Diagnosis: Acute calculous cholecystitis
Post-op Diagnosis: Same
Procedure Performed: Robotic cholecystectomy with intraoperative near infared imaging of major extrahepatic bile ducts
Anesthesia Type: GETA
Specimen / Cultures: Gallbladder
Estimated Blood Loss: 25cc
Complications: None immediate
Operative Findings: Tensely distended severely inflamed gallbladder with early gangrenous changes; edematous tissues adherent to the infundibulum were gently swept down bluntly; some yellow pus encountered and hydropic fluid during gallbladder
dissection, many tiny pigmented stones spilled and were maximally retrieved
DOS: 05/19/25
Indications: This 89F developed right upper quadrant/epigastric pain and on workup was found to have acute calculous cholecystitis with normal liver enzymes. Laparoscopic cholecystectomy with robotic assist was elected.
Description of procedure: The patient was placed on the operating table in the supine position. General anesthesia was induced. A time-out was completed verifying correct patient, procedure, site, positioning, and special equipment prior to
beginning this procedure. An orogastric tube was placed. The abdomen was prepped and draped in the usual sterile fashion. A stab incision was made in left upper quadrant and the Veress needle was inserted. Proper position was confirmed by aspiration
and saline meniscus test. The abdomen was insufflated with carbon dioxide to a pressure of 12 mmHg. The patient tolerated insufflation well.
An 8mm optical trocar was then inserted in the left upper quadrant. The laparoscope was inserted and the abdomen inspected. No injuries from initial trocar placement or Veress needle insertion were noted. Additional 8mm trocars were then inserted in
the following locations: above the umbilicus, right mid clavicular line at the level of the umbilicus and 6cm lateral to this on the right. The abdomen was inspected and no abnormalities were found. The table was placed in the reverse Trendelenburg
position with the right side up. The dome of the gallbladder was grasped with an atraumatic grasper and retracted over the dome of the liver. The galbladder was tensely distended and was decompressed with a cyst aspiration needle. The infundibulum
was also grasped with an atraumatic grasper and retracted toward the right lower quadrant. Dense omental adhesions to the fundus and infundibulum were gently swept down bluntly. This maneuver exposed Calot�s triangle, which was encased in dense
inflammatory fat. The cystic duct and cystic artery were dissected out until the only two structures entering the gallbladder were these two structures. ICG was used to visualize the cystic duct and common duct and anatomy was confirmed. The common
duct was protected.
The cystic artery was controlled with bipolar and divided. The cystic duct was doubly clipped and divided. The gallbladder was dissected free from the liver bed. During this step the gallbladder wall broke down in one location and yellow pus and
many small pigmented stones spilled out. Hemostasis was assured and the gallbladder and contained stones were removed using an endoscopic retrieval bag placed through the umbilical port. The gallbladder was passed off the table as a specimen. The
gallbladder fossa was irrigated with copious sterile saline and hemostasis was again assured. The stones were retrieved with the suction leather carver. There was no evidence of bleeding from the gallbladder fossa or cystic artery or leakage of the bile
from the cystic duct stump. The umbilical trocar site was closed at the fascial level laparoscopically with 2-0 PDS. Secondary trocars were removed under direct vision and noted to be hemostatic. The laparoscope was withdrawn and the umbilical
trocar removed. The abdomen was allowed to collapse. The skin was closed with subcuticular sutures of 4-0 monocryl and topical skin adhesive. The orogastric tube was removed.
The patient tolerated the procedure well and was taken to the postanesthesia care unit in stable condition.
[2025-05-19 12:45] LABS: Glucose - Point of Care 83 mg/dl (70-99)
--- NOTE | 2025-05-19 14:00 | PTCARENOTE ---
Patient received back to room 3344 from PACU. Pt is alert and awake and in good spirits. Monitor placed back on patient. She is on 4L NC but weaned to 3L NC. Family at bedside. Pt upgraded to Regular diet but advised to go slow. Dr. Catalan at beside
to talk with family. Pt's 4 lap sites dry and intact. Pt has an ice back over abdomen.
--- NOTE | 2025-05-19 16:07 | CM ---
chart reviewed
OR today - Robotic cholecystectomy with intraoperative near infared imaging of major extrahepatic bile ducts
PLAN: Anticipate home, CM to continue to follow for needs
[2025-05-19 18:18] LABS: Glucose - Point of Care 188 mg/dl (70-99)
[2025-05-19] MEDS: NOVOLOG FLEXPEN-LOW RESISTANCE 1 UNITS SC (18:24)
[2025-05-19] MEDS: NOVOLOG FLEXPEN 5 UNITS SC (21:40)
[2025-05-19] MEDS: LANTUS 0.1 UNITS SC (21:41)
--- NOTE | 2025-05-19 22:13 | PTCARENOTE ---
Assumed Pt care at shift change; Pt resting comfortably in bed - son at bedside to help translate. AAO x 3; Reports mild pain in RLQ of abdomen - refuses medication at the time. Pain managed with ice pack; Lap sites x 4 with mild bruising, glued
and MARS. HS accucheck = 358, overnight SEWER REPAIRER notified - order received to give 5 units of NovoLog; Will continue to monitor and assess.
[2025-05-20] VITALS (14 sets, daily range): BP systolic 103–129; BP diastolic 49–65; PULSE 66; O2SAT 92; BMI 24.8
[2025-05-20] MEDS: ZOSYN 50 IV ×4 (01:33→20:44)
[2025-05-20] MEDS: DILAUDID 0.5 MG IV ×2 (04:45→08:48)
[2025-05-20 05:13] LABS: Blood Urea Nitrogen 24 mg/dl (7-17); Calcium 7.5 mg/dl (8.4-10.2); Carbon Dioxide 25 mmol/L (22-30); Chloride 108 mmol/L (98-107); Estimated Creatinine Clearance 30 ml/min; Glucose 252 mg/dl (70-99); Potassium 4.2 mmol/L (3.5-5.1); Sodium 135 mmol/L (135-145); eGFR > 60.00
[2025-05-20 05:58] LABS: Hematocrit 32.1 % (37.0-47.0); Hemoglobin 11.2 g/dL (12.0-16.0); Mean Corp Hgb Conc. 34.9 g/dL (33.0-37.0); Mean Corpuscular Volume 92.8 fL (81.0-99.0); Nucleated Red Blood Cells % 0 %; Platelet Count 207 10^3/uL (130-400); Red Cell Dist. Width 13.9 % (11.5-14.5)
[2025-05-20] MEDS: ULTRAM 100 MG PO (07:33)
[2025-05-20 07:56] LABS: Glucose - Point of Care 210 mg/dl (70-99)
[2025-05-20] MEDS: NOVOLOG FLEXPEN-LOW RESISTANCE 2 UNITS SC ×3 (08:13→17:57)
[2025-05-20] MEDS: PROTONIX IV 40 MG IV (08:13)
[2025-05-20 08:34] LABS: Glucose - Point of Care 358 mg/dl (70-99)
--- NOTE | 2025-05-20 09:54 | W.PN.GS2 ---
Addendum entered and electronically signed by Jean-Pierre Catalan MD 05/26/25 12:55:
CDI: localized peritonitis at time of surgery
Original Note:
Today's Communication / Plan
-
s/o
Assessment / Plan
-
89F POD1 s/p rCCY for ACC
AFVSS, improving
Plan:
Diabetic diet
Recommend total 7 day course abx, can convert to PO augmentin upon DC
F/U with me in the office
Pls call with ?s
Subjective Data
-
Date of Service: May 20, 2025
AFVSS, feels 'better,' pain controlled, ate dinner last night without issues
Objective Data
-
Intake and Output
05/19/25 05/20/25 05/21/25
06:59 06:59 06:59
Intake Total 1490 / 1490 1360 / 1360
Output Total 350 / 350 900 / 900
Balance 1140 / 1140 460 / 460
Intake:
Oral fluids 240 / 240 360 / 360
IV fluids (Total) 1100 / 1100 900 / 900
Normosol 100 / 100
IV piggybacks 150 / 150 100 / 100
Output:
Urine, Voided 350 / 350 900 / 900
Other:
How many times incontinent 1
SMALL amount urine
Number of approximated SMALL 1
amounts of urine
Number of approximated MODERATE 2 1
amounts of urine
Number of approximated LARGE 1
amounts of urine
Vital Signs
Temp Pulse Resp BP Pulse Ox
98.2 F 67 19 122/64 94
05/20/25 07:30 05/20/25 06:00 05/20/25 06:00 05/20/25 06:00 05/20/25 06:00
Lab Results
05/20/25 04:33
05/20/25 04:33
Calcium 7.5 mg/dl (8.4-10.2) L 05/20/25 04:33
Total Bilirubin 0.8 mg/dl (0.2-1.3) 05/19/25 06:11
Direct Bilirubin 0.4 mg/dl (0.0-0.4) 05/19/25 06:11
AST 39 U/L (14-36) H 05/19/25 06:11
ALT 29 U/L (0-35) 05/19/25 06:11
Alkaline Phosphatase 87 U/L (38-126) 05/19/25 06:11
Total Protein 5.1 g/dl (6.3-8.2) L D 05/19/25 06:11
Albumin 2.6 g/dl (3.5-5.0) L 05/19/25 06:11
Physical Exam
-
Gen: NAD
Abd: soft, approp ttp, incisions cdi
Patient has a wilson catheter: No
Patient has a central line: No
[2025-05-20] MEDS: MOTRIN 600 MG PO (11:09)
--- NOTE | 2025-05-20 11:53 | W.PN.HOSP.TC ---
Today's Communication/Plan
-
Late entry for encounter 05/19
Assessment / Plan
Assessment / Plan
Impression/plan
A/P: Patient is an 89y F with PMH significant for DM-II and CKD who presents to ED complaining of abdominal pain.
Acute Cholecystitis
Sepsis secondary to the above
- Patient presents with tachycardia, tachypnea, leukocytosis and exam / imaging consistent with cholecystitis.
- IV Zosyn, NPO, IVFs, pain control.
- Status postcholecystectomy. Diet as per surgery
Hyponatremia
JOANIE on CKD II
- Na = 126 (corrected to 130 for hyperglycemia). SCr = 1.2 compared to baseline of 0.9.
- Likely hypovolemia due to poor intake, N/V.
- Possible increased ADH due to pain / nausea.
- IVFs overnight and follow for changes in labs / lytes.
DM-II. Preadmission regimen including Ozempic, Januvia, glipizide, Lantus 18 units at bedtime,
- Hyperglycemic on admission - likely due to acute infection.
- Continue basal insulin at decreased dose while NPO.
- Hold PO medications acutely.
- Follow glucose and cover with SSI as needed.
- Update A1C.
DVT Prophylaxis: SCDs
Code Status: Full
Anticipated Discharge: 24 - 48 hours
Subjective/Interval History
-
Date of Service: May 20, 2025
Objective Data
-
Labs:
Laboratory Results
05/20/25
04:33
WBC 8.6
Hgb 11.2 L
Hct 32.1 L
Plt Count 207
Sodium 135
Potassium 4.2
Chloride 108 H
Carbon Dioxide 25
BUN 24 H
Creatinine 0.9
Glucose 252 H
Calcium 7.5 L
Vital Signs:
Vital Signs
Temp Pulse Resp BP Pulse Ox
98.2 F 63 17 129/60 96
05/20/25 07:30 05/20/25 10:00 05/20/25 10:00 05/20/25 10:00 05/20/25 11:19
I&O
05/19/25 05/20/25 05/21/25
06:59 06:59 06:59
Intake Total 1490 / 1490 1360 / 1360
Output Total 350 / 350 900 / 900
Balance 1140 / 1140 460 / 460
Physical Exam
-
General: Well Developed and No Apparent Distress
HEENT: Normocephalic, Atraumatic and Moist Mucous Membranes
Respiratory: Clear to Auscultation
Cardiac: Regular Rhythm and S1/S2; Negative Murmur, Rub or Gallop
GI: Soft, Nontender, Nondistended and Normal Bowel Sounds; Negative Organomegaly
Rectal: Deferred by Provider
Musculoskeletal: No Clubbing, No Cyanosis and No Edema
Skin: Negative Rash
Neuro: Nonfocal/Grossly Intact
[2025-05-20 12:54] LABS: Glucose - Point of Care 224 mg/dl (70-99)
--- NOTE | 2025-05-20 15:18 | W.PN.HOSP.TC ---
Today's Communication/Plan
-
Physical therapy evaluation
Discharge planing.
Assessment / Plan
Assessment / Plan
Impression/plan
A/P: Patient is an 89y F with PMH significant for DM-II and CKD who presents to ED complaining of abdominal pain.
Acute Cholecystitis
Sepsis ruled out
- Patient presents with tachycardia, tachypnea, leukocytosis and exam / imaging consistent with cholecystitis.
- Status postcholecystectomy.
Diet has been advanced
Plan is to complete 7-day course of antibiotics with transition to oral upon discharge
Physical therapy evaluation
Hyponatremia
JOANIE on CKD II
- Na = 126 (corrected to 130 for hyperglycemia). SCr = 1.2 compared to baseline of 0.9.
Sodium improved at 135
DM-II. Preadmission regimen including Ozempic, Januvia, glipizide, Lantus 18 units at bedtime,
- Hyperglycemic on admission - likely due to acute infection.
- Continue basal insulin at decreased dose while NPO.
- Hold PO medications acutely.
- Follow glucose and cover with SSI as needed.
- Update A1C.
DVT Prophylaxis: SCDs
Code Status: Full
Anticipated Discharge: Within 24 hours
Subjective/Interval History
-
Date of Service: May 20, 2025
Objective Data
-
Labs:
Laboratory Results
05/20/25
04:33
WBC 8.6
Hgb 11.2 L
Hct 32.1 L
Plt Count 207
Sodium 135
Potassium 4.2
Chloride 108 H
Carbon Dioxide 25
BUN 24 H
Creatinine 0.9
Glucose 252 H
Calcium 7.5 L
Vital Signs:
Vital Signs
Temp Pulse Resp BP Pulse Ox
98.8 F 63 17 129/60 96
05/20/25 11:00 05/20/25 10:00 05/20/25 10:00 05/20/25 10:00 05/20/25 11:19
I&O
05/19/25 05/20/25 05/21/25
06:59 06:59 06:59
Intake Total 1490 / 1490 1360 / 1360
Output Total 350 / 350 900 / 900
Balance 1140 / 1140 460 / 460
Physical Exam
-
General: Well Developed and No Apparent Distress
HEENT: Normocephalic, Atraumatic and Moist Mucous Membranes
Respiratory: Clear to Auscultation
Cardiac: Regular Rhythm and S1/S2; Negative Murmur, Rub or Gallop
GI: Soft, Nontender, Nondistended and Normal Bowel Sounds; Negative Organomegaly
Rectal: Deferred by Provider
Musculoskeletal: No Clubbing, No Cyanosis and No Edema
Skin: Negative Rash
Neuro: Nonfocal/Grossly Intact
--- NOTE | 2025-05-20 15:55 | CM ---
Following up on Patient. PT/OT is recommending Home PT/OT. DAYANARA Alyce met with the son in the room (patient is Vietnamese Speaking) and he agreed [facility] see if [facility] will need it, but feels that she will due to stairs at home. PLAN: Home w/ PT, VN
referral made.
[2025-05-20 17:43] LABS: Glucose - Point of Care 231 mg/dl (70-99)
--- NOTE | 2025-05-20 18:00 | PTCARENOTE ---
Patient asked for a walk. Pt was able to take one lap around the unit. Towards the end we did need to stop for patient to take a break and take some deep breaths but otherwise was steady with RW. Assessment, care and VS as charted.
[2025-05-20 21:16] LABS: Glucose - Point of Care 245 mg/dl (70-99)
[2025-05-20] MEDS: LANTUS 0.1 UNITS SC (21:40)
--- NOTE | 2025-05-20 23:00 | PTCARENOTE ---
Pt desatting to 85% on RA while asleep. 3LNC applied, SaO2 92% on 3L.
[2025-05-21] VITALS (14 sets, daily range): BP systolic 115–162; BP diastolic 48–98
[2025-05-21] MEDS: ZOSYN 50 IV ×4 (03:35→19:39)
[2025-05-21] MEDS: ULTRAM 100 MG PO (03:37)
[2025-05-21 08:16] LABS: Glucose - Point of Care 114 mg/dl (70-99)
[2025-05-21] MEDS: DILAUDID 0.5 MG IV (08:34)
[2025-05-21] MEDS: PROTONIX IV 40 MG IV (08:35)
--- NOTE | 2025-05-21 09:08 | PTCARENOTE ---
Patient complaining of severe abdominal pain this AM. Medicated with IV dilaudid as ordered for upper abdominal pain rating 9/10. Patient reporting incisional pain and gas pain. Denies any N/V. Abdominal incision sites all look good.
Hyperactive bowel sounds,abdomen tender to palpation throughout. Patient voiding without difficulty. She has not had a BM since admission. Appetite good. Will monitor.
--- NOTE | 2025-05-21 11:51 | VNURNOTE ---
Home Health Liaison met with patient and son at bedside to discuss [facility] nurse/therapy, visits, schedule and homebound status. Patient was dozing. Her son is agreeable and understands that visits at home will be 2-3 x per week to assess and
teach medical management.
He is aware that [facility] will contact them for start of care within a few days after discharge from . Provided contact number for [facility]. Son confirms that he is getting a new cell phone today and will keep his existing number.
[facility] referral completed in [facility].
--- NOTE | 2025-05-21 12:19 | W.DS.TRANS ---
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
-
Discharge Instructions:
Discharge Diagnosis/Procedures Acute cholecystitis
Status post laparoscopic cholecystectomy
Diet Diabetic, Carb Controlled
Instructions:
Stand-Alone Forms:
Changes to Home Medications: Yes
Discharge Medications:
DC Medications w/original date entered in [facility]
alendronate 70 mg tablet (Fosamax) 70 mg PO TU OSTEOPOROSIS 09/01/22
cholecalciferol (vitamin D3) 25 mcg (1,000 unit) tablet (Vitamin D3) 25 mcg PO DAILY Supplement 09/01/22
cyanocobalamin (vitamin B-12) 1,000 mcg tablet 1,000 mcg PO DAILY Supplement 09/01/22
folic acid 1 mg tablet 1 mg PO DAILY Supplement 09/01/22
omega-3 fatty acids-fish oil 684 mg-1,200 mg capsule,delayed release 1 cap PO DAILY Supplement 09/01/22
lutein 6 mg tablet 6 mg PO BID Supplement 02/04/23
multivitamin 1 tab PO DAILY Supplement 02/07/23
glipizide 10 mg tablet 10 mg PO BID Diabetes 03/12/24
sitagliptin phosphate 100 mg tablet (Januvia) 100 mg PO DAILY Diabetes 03/12/24
insulin degludec 100 unit/mL (3 mL) subcutaneous pen 18 unit SC HS Diabetes 05/18/25
psyllium 1 packet PO DAILYPRN PRN constipation 05/18/25
semaglutide 0.25 mg or 0.5 mg (2 mg/3 mL) subcutaneous pen injector (Ozempic) 0.25 mg SC SA Diabetes 05/18/25
amoxicillin 500 mg-potassium clavulanate 125 mg tablet (Augmentin) 1 tab PO BID #10 tabs 05/21/25
tramadol 50 mg tablet 50 mg PO Q6HPRN PRN mod pain po option #20 tabs 05/21/25
Home Medication Changes
Antibiotics to complete total 7-day course of treatment for gangrenous cholecystitis.
Addition of tramadol for surgical site pain
Pending Results: No
[2025-05-21] MEDS: NOVOLOG FLEXPEN-LOW RESISTANCE SC (12:25)
[2025-05-21] MEDS: MOTRIN 600 MG PO (12:26)
[2025-05-21] MEDS: ULTRAM 50 MG PO (12:26)
[2025-05-21 13:27] LABS: Glucose - Point of Care 180 mg/dl (70-99)
[2025-05-21] MEDS: NOVOLOG FLEXPEN-LOW RESISTANCE 1 UNITS SC ×2 (14:07→17:30)
[2025-05-21] MEDS: DULCOLAX 10 MG PO (14:08)
[2025-05-21] MEDS: MYLICON 80 MG PO (14:10)
[2025-05-21 15:14] LABS: Hematocrit 33.1 % (37.0-47.0); Hemoglobin 11.2 g/dL (12.0-16.0); Mean Corp Hgb Conc. 33.8 g/dL (33.0-37.0); Mean Corpuscular Volume 93.2 fL (81.0-99.0); Nucleated Red Blood Cells % 0 %; Platelet Count 233 10^3/uL (130-400); Red Cell Dist. Width 13.8 % (11.5-14.5)
--- NOTE | 2025-05-21 15:33 | W.PN.HOSP.TC ---
Today's Communication/Plan
-
Abdominal pain and distention
Obstruction series.
Bowel regimen.
Continue regular diet with caution.
Increase Lantus
Continue basal bolus protocol
Assessment / Plan
Assessment / Plan
Impression/plan
A/P: Patient is an 89y F with PMH significant for DM-II and CKD who presents to ED complaining of abdominal pain.
Acute Cholecystitis
Sepsis ruled out
- Patient presents with tachycardia, tachypnea, leukocytosis and exam / imaging consistent with cholecystitis.
- Status postcholecystectomy.
Diet has been advanced
Plan is to complete 7-day course of antibiotics with transition to oral upon discharge
Constipation with diffuse abdominal distention. Check obstruction series to rule out postoperative few doses. Bowel regimen.
Physical therapy evaluation
Hyponatremia
JOANIE on CKD II
- Na = 126 (corrected to 130 for hyperglycemia). SCr = 1.2 compared to baseline of 0.9.
Sodium improved at 135
DM-II. Preadmission regimen including Ozempic, Januvia, glipizide, Lantus 18 units at bedtime,
- Hyperglycemic on admission - likely due to acute infection.
-Diet has been advanced.
-Continue basal bolus protocol
-Increase Lantus back to preadmission dose of 18 units
Plan is to resume oral diabetic regimen upon discharge
DVT Prophylaxis: SCDs
Code Status: Full
Anticipated Discharge: 24 - 48 hours
Subjective/Interval History
-
Date of Service: May 21, 2025
Objective Data
-
Labs:
Laboratory Results
05/21/25 05/21/25
14:57 15:14
WBC 6.3
Hgb 11.2 L
Hct 33.1 L
Plt Count 233
Sodium Cancelled Pending
Potassium Cancelled Pending
Chloride Cancelled Pending
Carbon Dioxide Cancelled Pending
BUN Cancelled Pending
Creatinine Cancelled Pending
Glucose Cancelled Pending
Calcium Cancelled Pending
Vital Signs:
Vital Signs
Temp Pulse Resp BP Pulse Ox
98.3 F 64 17 139/57 94
05/20/25 23:16 05/21/25 12:00 05/21/25 12:00 05/21/25 12:00 05/21/25 14:38
I&O
05/20/25 05/21/25 05/22/25
06:59 06:59 06:59
Intake Total 1360 / 1360 580 / 580 480 / 480
Output Total 900 / 900 150 / 150
Balance 460 / 460 430 / 430 480 / 480
Physical Exam
-
General: Well Developed and No Apparent Distress
HEENT: Normocephalic, Atraumatic and Moist Mucous Membranes
Respiratory: Clear to Auscultation
Cardiac: Regular Rhythm and S1/S2; Negative Murmur, Rub or Gallop
GI: Soft, Nontender, Nondistended and Normal Bowel Sounds; Negative Organomegaly
Rectal: Deferred by Provider
Musculoskeletal: No Clubbing, No Cyanosis and No Edema
Skin: Negative Rash
Neuro: Nonfocal/Grossly Intact
[2025-05-21 17:02] LABS: Glucose - Point of Care 172 mg/dl (70-99)
--- NOTE | 2025-05-21 17:32 | PTCARENOTE ---
Patient abdominal pain better controlled now. No BM yet. OB
--- NOTE | 2025-05-21 17:34 | CM ---
Following up on Patient. Patient is having Abd pain and might have obstruction. Patient on bowl regiment. Patient is set up with Home PT when ready. PLAN: Home with VN.
[2025-05-21 18:56] LABS: Blood Urea Nitrogen 17 mg/dl (7-17); Calcium 7.7 mg/dl (8.4-10.2); Carbon Dioxide 29 mmol/L (22-30); Chloride 103 mmol/L (98-107); Estimated Creatinine Clearance 34 ml/min; Glucose 148 mg/dl (70-99); Potassium 4.1 mmol/L (3.5-5.1); Sodium 132 mmol/L (135-145); eGFR > 60.00
[2025-05-21 22:55] LABS: Glucose - Point of Care 137 mg/dl (70-99)
[2025-05-21] MEDS: LANTUS 0.18 UNITS SC (22:57)
[2025-05-22] VITALS (7 sets, daily range): BP systolic 120–148; BP diastolic 52–74
[2025-05-22] MEDS: ULTRAM 50 MG PO ×2 (01:08→09:07)
[2025-05-22] MEDS: MYLICON 80 MG PO (01:23)
[2025-05-22] MEDS: ZOSYN 50 IV ×3 (02:27→13:08)
[2025-05-22] MEDS: FLUSH (NSS) 2 FLUSH IV (02:27)
--- NOTE | 2025-05-22 05:55 | PTCARENOTE ---
Pt slept well overnight. Multiple times in bathroom to void and have 3 mod bm's. Abdominal pain managed by Ultram and Motrin. Mylicon prn ordered for gas pain with good relief. Lap sites with surgical glue. Pt able to turn self. No change from
previous assessment. AM labs obtained and sent to lab. Family member remains with pt throughout shift. Currently resting comfortably. Call tilley remains within reach. Will continue to monitor.
[2025-05-22 06:20] LABS: Blood Urea Nitrogen 15 mg/dl (7-17); Calcium 7.4 mg/dl (8.4-10.2); Carbon Dioxide 27 mmol/L (22-30); Chloride 107 mmol/L (98-107); Estimated Creatinine Clearance 39 ml/min; Glucose 109 mg/dl (70-99); Potassium 4.0 mmol/L (3.5-5.1); Sodium 135 mmol/L (135-145); eGFR > 60.00
[2025-05-22 08:38] LABS: Glucose - Point of Care 89 mg/dl (70-99)
[2025-05-22] MEDS: NSS (PRESERVATIVE FREE) 10 ML IV (09:03)
[2025-05-22] MEDS: NOVOLOG FLEXPEN-LOW RESISTANCE SC (09:03)
[2025-05-22] MEDS: PROTONIX IV 40 MG IV (09:03)
--- NOTE | 2025-05-22 09:21 | PTCARENOTE ---
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 Patient resting comfortably in bed. HOLLY MAYA. Urdu speaking, son in room to help translate. No events noted over night. Has some complaints of abdominal pain, see MAR. Patient had BM overnight per night
RN. Surgical sites glued, CDI and approximated. No testing scheduled for today. Call tilley in reach.
[2025-05-22 12:09] LABS: Glucose - Point of Care 152 mg/dl (70-99)
--- NOTE | 2025-05-22 12:32 | W.DCSUMMARY ---
Discharge Summary
Discharge Data
Date of Admission: 05/18/25
Date of Discharge: 05/22/25
Total time spent discharging patient (in min): 40
-
Pending Results: No
Hospital Course
Ms. Hutchins is an 89-year-old female with a medical history of insulin-dependent diabetes mellitus and CKD stage II who presented with abdominal pain. She was found to have acute cholecystitis and underwent robotic cholecystectomy on 05/19/2025.
She tolerated the procedure well. She did have some postoperative constipation likely contributed to by her opiate pain medications. She has been started on a bowel regimen with MiraLAX and Senokot and is now moving her bowels. She will be
discharged to home with instructions to continue this bowel regimen while she is taking her pain medication, with holding parameters for loose stools or diarrhea. She was treated with IV antibiotics while inpatient and transitioned to Augmentin at
the time of discharge to complete a 7-day antibiotic course. She will need outpatient follow-up with her primary care physician and with general surgery in their office for post operative evaluation. She was medically stable at time of hospital
discharge.
General: No Apparent Distress, Comfortable and Conversant
HEENT: NormoCephalic, Moist mucous membranes, Atraumatic
Respiratory: Clear and Non Labored Respirations
Cardiac: S1/S2 and Regular Rhythm; No Rub or Gallop
GI: Soft, mild TTP, laparoscopic port scars CDI
Musculoskeletal: No Edema, no deformity
: NO Mcallister
Neuro: Awake, Alert, Nonfocal/grossly intact
Psych: Calm and cooperative
Discharge Plan
-
Patient Disposition: Home (Routine Discharge)
Discharge Diagnosis/Procedures: Acute cholecystitis
Status post laparoscopic cholecystectomy
Diet: Diabetic, Carb Controlled
Activity Restrictions/Additional Instructions:
You were admitted to the hospital for treatment of acute cholecystitis. You were taken to the operating room with general surgery on 05/19/2025 for robotic cholecystectomy. You tolerated the procedure well. You were treated with antibiotics which
you will continue after discharge to complete a total 7-day course. You developed constipation postoperatively for which you were given medications (MiraLAX and Senokot) to help relieve your constipation. You will be continued on pain medications
which can have a side effect of causing worsening constipation and so it is recommended that you continue MiraLAX and Senokot to avoid constipation while you are taking the pain medications. You can stop taking MiraLAX and Senokot if you develop
soft stools or diarrhea. At the time of hospital discharge you were medically stable. You will need to follow-up closely with the surgical team in the outpatient office.
Referrals:
Jean-Pierre Catalan MD [Active, Surgical] - in two to four weeks
Alexandria Coronado MD [Family Provider, Family Practice]
Prescriptions:
New
tramadol 50 mg Tablet
50 mg PO Q6HPRN PRN (Reason: mod pain po option) Qty: 20 0RF
amoxicillin-pot clavulanate [Augmentin] 500-125 mg tablet
1 tab PO BID Qty: 10 0RF
polyethylene glycol 3350 17 gram Powder In Packet
17 g PO DAILY Qty: 14 0RF
Rx Instructions:
Hold for loose stools
sennosides-docusate sodium [Senna Plus] 8.6-50 mg Tablet
1 tab PO BID Qty: 10 0RF
Rx Instructions:
Hold for loose stools
Continued
alendronate [Fosamax] 70 mg Tablet
70 mg PO TU
cyanocobalamin (vitamin B-12) 1,000 mcg Tablet
1,000 mcg PO DAILY
folic acid 1 mg Tablet
1 mg PO DAILY
cholecalciferol (vitamin D3) [Vitamin D3] 25 mcg (1,000 unit) Tablet
25 mcg PO DAILY
omega-3 fatty acids-fish oil 684-1,200 mg Capsule,Delayed Release(Dr/Ec)
1 cap PO DAILY
lutein 6 mg Tablet
6 mg PO BID
multivitamin Tablet
1 tab PO DAILY
glipizide 10 mg Tablet
10 mg PO BID
Januvia 100 mg Tablet
100 mg PO DAILY
psyllium Packet
1 packet PO DAILYPRN PRN (Reason: constipation)
insulin degludec 100 unit/mL (3 mL) insulin pen
18 unit SC HS
Ozempic 0.25 mg or 0.5 mg (2 mg/3 mL) Pen Injector
0.25 mg SC SA
Rx Instructions:
for 4 weeks
Discharge Orders:
Discharge Patient (As Directed); Ordered 05/22/25
Ordered By: German Moreno
Discharge Date and Time
Print Language: BELARUSIAN
[2025-05-22] MEDS: MIRALAX 17 GRAMS PO (12:45)
[2025-05-22] MEDS: SENOKOT-S 1 TABLET PO (12:45)
[2025-05-22] MEDS: NOVOLOG FLEXPEN-LOW RESISTANCE 1 UNITS SC (12:45)
--- NOTE | 2025-05-22 14:39 | PTCARENOTE ---
Patient discharged to home with family. Discharge instructions reviewed with son, all questions answered. Patient left with all known belongings.
--- NOTE | 2025-05-22 14:59 | CM ---
Patient discharge today
PLAN: Home with [facility]
Family to transport
--- NOTE | 2025-05-24 15:46 | PN.CDI ---
CDI
- -
CDI:
Physician Documentation Request
Admit Date: 05/18/25 05:35
Dear Doctor Alayna,
Please review the following and provide your response in the progress notes.
Clinical Indicators:
05/19 Procedure Performed:
#...Robotic cholecystectomy with intraoperative near infared imaging of
#...major extrahepatic bile ducts
#Operative Findings:
#...Tensely distended severely inflamed gallbladder with early gangrenous changes; #...edematous tissues adherent to the infundibulum were gently swept down bluntly;
#...some yellow pus encountered and hydropic fluid during gallbladder dissection,
#...many tiny pigmented stones spilled and were maximally retrieved
PN, 05/20
#...Recommend total 7 day course abx, can convert to PO augmentin upon DC
Based on the above and your clinical assessment, please the appropriate diagnosis, if significant, that supports the above abnormalities and additional evaluation, monitoring and/or treatment rendered:
Localized Peritonitis
Generalized Peritonitis
Perforated Peritonitis
Other(please specify)
Use of terms such as suspected, likely, concern for, or probable (associated with a specific diagnosis that is being evaluated, monitored, or treated as if it exists) are acceptable and can be coded in the inpatient setting, when documented at the
time of discharge.
Thank you,
Mirlande Gregorio RN BSN CCDS
CDI Specialist
Please contact via tiger text
Please use your independent medical judgment in providing your response.
== END 2025-05-22 14:46 | disposition home health service (06) | DRG 417 ==
LOC: IMU 05:35
PROVIDERS: Internal Medicine; Registered Nurse; Surgery; ADMITTING PHYSICIAN Hospitalist; ATTENDING PHYSICIAN Internal Medicine; CONSULT PHYSICIAN Surgery; EMERGENCY PHYSICIAN Emergency Medicine; FAMILY PHYSICIAN Family Medicine
PROC: 8E0W4CZ Robotic Assisted Procedure of Trunk Region, Percutaneous Endoscopic Approach (ICD-10-PCS; 2025-05-19)
PROC: 0FT44ZZ Resection of Gallbladder, Percutaneous Endoscopic Approach (ICD-10-PCS; 2025-05-19)
DX: K80.00 Calculus of gallbladder with acute cholecystitis without obstruction (principal); K65.9 Peritonitis, unspecified; E87.1 Hypo-osmolality and hyponatremia; K66.0 Peritoneal adhesions (postprocedural) (postinfection); N18.2 Chronic kidney disease, stage 2 (mild); E11.22 Type 2 diabetes mellitus with diabetic chronic kidney disease; E11.65 Type 2 diabetes mellitus with hyperglycemia; K59.09 Other constipation; K59.03 Drug induced constipation; T40.2X5A Adverse effect of other opioids, initial encounter; Z79.83 Long term (current) use of bisphosphonates; Z79.84 Long term (current) use of oral hypoglycemic drugs; Z79.4 Long term (current) use of insulin; Z79.891 Long term (current) use of opiate analgesic; M81.0 Age-related osteoporosis without current pathological fracture; Z79.85 Long-term (current) use of injectable non-insulin antidiabetic drugs; Z88.1 Allergy status to other antibiotic agents; Z96.653 Presence of artificial knee joint, bilateral; Z96.612 Presence of left artificial shoulder joint
CPT/HCPCS: 74022; 74177; 80048; 80053; 81003; 81015; 82248; 82962; 83605; 83690; 85025; 85027; 87086; 88304; 93971; 97163; Q9967

== ENCOUNTER 2025-05-26 17:43 | Inpatient (IN) | payer MEDICARE, OTHER, SELFPAY ==
[2025-05-26] VITALS (36 sets, daily range): BP systolic 72–148; BP diastolic 31–119; BMI 25.8
--- NOTE | 2025-05-26 14:14 | ED.GENMED ---
History of Present Illness
<Maci Velásquez PA-C - Last Filed: 05/26/25 17:06>
General
Chief Complaint: Abdominal Pain
Source: patient and family
Exam Limitations: none
Time Seen by Provider: 05/26/25 14:11
Nursing documentation reviewed up to this point in time: agreed with
History of Present Illness
History of Present Illness:
SEE mdm
Phy Exam
<Maci Velásquez PA-C - Last Filed: 05/26/25 17:06>
Physical Exam
Physical Exam:
See MDM
Course
<Maci Velásquez PA-C - Last Filed: 05/26/25 17:06>
Orders/Labs/Results
Orders:
Orders
05/26/25 14:14
Urinalysis Reflex To Culture Urgent
Date Specimen was Collected: 05/26/25
Time Specimen was Collected: 14:14
05/26/25 14:15
Complete Blood Count/With Diff Urgent
Comprehensive Metabolic Panel Urgent
Lipase Urgent
05/26/25 14:21
0.9% Sodium Chloride 1000 ml [Nss] 1,000 ml IV BOLUS
05/26/25 14:22
CR Chest Portable - 1 View Urgent
Comment:
Reason For Exam: s/p arch, hypotensive
Reason Study Needs to be Portable: Patient Unstable
05/26/25 14:28
Lactic Acid Urgent
05/26/25 14:56
HYDROmorphone [Dilaudid] 0.25 mg IV NOW STA
05/26/25 15:04
Ampicillin/Sulbactam 3 G [Unasyn] 3 gm 0.9% Sodium Chloride 100 ml [Nss] 100 ml IV NOW
05/26/25 15:09
Blood Culture Q30M
BILL Source: Blood/Venous
Specimen Description:
05/26/25 15:17
Blood Culture Q30M
BILL Source: Blood/Venous
Specimen Description:
05/26/25 15:29
Blood Bank Products [* Blood Bank Products] Urgent
Blood Bank Products: *Packed RBC Leuko (PRBC's
Quantity: 2
Transfuse Today: Yes
Reason: Bleeding
05/26/25 15:30
Electrocardiogram (*1) Urgent
Reason for Study: Fatigue / Weakness
EKG- Treatment ONCE
HYDROmorphone [Dilaudid] 0.25 mg IV NOW STA
05/26/25 16:08
Type+Screen Urgent
BBK Wristband Number:
CT Abd/pelvis Angio W/wo Iv Urgent
Comment:
Reason For Exam: ABD PAIN, ACUTE BLOOD LOSS, RECENT RACH
05/26/25 16:12
Emergent Blood Release Stat
Blood Bank Products: *Packed RBC Leuko(PRBC's)
Quantity: 2
Reason: Bleeding
A Blood Permit is Required for all Blood.
FOR LAB PICKUP:
Take order sheet to Blood Bank to grape picker blood products in validated cooler
Immediately return to patient care area.
Blood products released by
Blood Products picked up by
Sent to
Date and Time
05/26/25 16:15
NORepinephrine 4 MG/250 ML [Levophed] 4 mg in 250 ml IV PER PROTOCOL
Initial dose in mcg/min, then titrate:: 2
Titrate to keep:: MAP > 65 mmHg
Titrate by mcg/min:: 1-2 mcg/min
Frequency of titrations (minutes):: 5
Maximum dose in ICU in mcg/min:: 30
Maximum dose in IMU in mcg/min:: 8
Maximum dose in IVU in mcg/min:: 4
Begin to taper infusion when:: Remained at goal for 4hrs
Taper by mcg/min:: 1-2 mcg/min
Frequency of taper (minutes) if patient maintains goal:: 30
Taper to off?: Yes
If infusion off & no longer maintaining goal:: Contact Provider
05/26/25 16:46
Consult Interventional Radiology [IRAD CONSULT] Urgent
Consulting Provider: Rodger Salcido
Was physician already notified: Yes
Procedure being ordered, including laterality if applicable: drain to abscess in gb fossa
Acknowledgement that appropriate orders are entered: Yes
05/26/25 16:50
Piperacillin/Tazo 3.375 Gram [Zosyn] 3.375 gram in 50 ml IV NOW
05/26/25 16:56
Pantoprazole 80 mg/100 ml Nss [Protonix] 80 mg in 100 ml IV NOW
Pantoprazole [Protonix IV] 40 mg IV NOW STA
05/26/25 16:59
PT/INR [Prothrombin Time] Urgent
05/26/25 17:03
HYDROmorphone [Dilaudid] 0.5 mg IV NOW STA
Abnormal Lab Results
05/26/25 05/26/25 05/26/25
14:15 14:28 16:08
WBC 17.0 H 10^3/uL
(4.8-10.8)
RBC 2.35 L 10^6/uL
(4.20-5.40)
Hgb 7.2 L D g/dL
(12.0-16.0)
Hct 21.8 L %
(37.0-47.0)
Abs Immat Gran (auto) 0.5 H 10^3/uL
(0-0.05)
Absolute Neuts (auto) 15.3 H 10^3/uL
(1.4-6.5)
Absolute Lymphs (auto) 0.5 L 10^3/uL
(1.2-3.4)
Immature Gran % 2.9 H %
(0-0.5)
Neutrophils % 90.4 H %
(42.2-75.2)
Lymphocytes % 3.1 L %
(20.5-51.1)
Sodium 131 L mmol/L
(135-145)
BUN 30 H mg/dl
(7-17)
Glucose 259 H mg/dl
(70-99)
Lactic Acid 2.6 H mmol/L
(0.7-2.0)
Calcium 7.6 L mg/dl
(8.4-10.2)
AST 37 H U/L
(14-36)
ALT 87 H U/L
(0-35)
Alkaline Phosphatase 274 H U/L
(38-126)
Total Protein 5.1 L g/dl
(6.3-8.2)
Albumin 2.5 L g/dl
(3.5-5.0)
Lipase 801 H U/L
(23-300)
Crossmatch IS Only See Detail
05/26/25 14:15
05/26/25 14:15
Vital Signs
Initial and Last Documented VS:
Initial Vital Signs
Temp Pulse Resp BP Pulse Ox
36.7 C 94 20 86/40 97
05/26/25 12:53 05/26/25 12:53 05/26/25 12:53 05/26/25 12:53 05/26/25 12:53
Last Documented Vital Signs
Temp Pulse Resp BP Pulse Ox
36.7 C 98 17 148/76 96
05/26/25 12:53 05/26/25 17:00 05/26/25 17:00 05/26/25 17:00 05/26/25 17:00
<Regino Daly, DO - Last Filed: 05/26/25 15:00>
Orders/Labs/Results
Orders:
Orders
05/26/25 14:14
Urinalysis Reflex To Culture Urgent
Date Specimen was Collected: 05/26/25
Time Specimen was Collected: 14:14
05/26/25 14:15
Complete Blood Count/With Diff Urgent
Comprehensive Metabolic Panel Urgent
Lipase Urgent
05/26/25 14:21
0.9% Sodium Chloride 1000 ml [Nss] 1,000 ml IV BOLUS
05/26/25 14:22
CR Chest Portable - 1 View Urgent
Comment:
Reason For Exam: s/p rach, hypotensive
Reason Study Needs to be Portable: Patient Unstable
05/26/25 14:28
Lactic Acid Urgent
05/26/25 14:56
HYDROmorphone [Dilaudid] 0.25 mg IV NOW STA
05/26/25 15:04
Ampicillin/Sulbactam 3 G [Unasyn] 3 gm 0.9% Sodium Chloride 100 ml [Nss] 100 ml IV NOW
05/26/25 15:09
Blood Culture Q30M
BILL Source: Blood/Venous
Specimen Description:
05/26/25 15:17
Blood Culture Q30M
BILL Source: Blood/Venous
Specimen Description:
05/26/25 15:29
Blood Bank Products [* Blood Bank Products] Urgent
Blood Bank Products: *Packed RBC Leuko (PRBC's
Quantity: 2
Transfuse Today: Yes
Reason: Bleeding
05/26/25 15:30
Electrocardiogram (*1) Urgent
Reason for Study: Fatigue / Weakness
EKG- Treatment ONCE
HYDROmorphone [Dilaudid] 0.25 mg IV NOW STA
05/26/25 16:08
Type+Screen Urgent
BBK Wristband Number:
CT Abd/pelvis Angio W/wo Iv Urgent
Comment:
Reason For Exam: ABD PAIN, ACUTE BLOOD LOSS, RECENT RACH
05/26/25 16:12
Emergent Blood Release Stat
Blood Bank Products: *Packed RBC Leuko(PRBC's)
Quantity: 2
Reason: Bleeding
A Blood Permit is Required for all Blood.
FOR LAB PICKUP:
Take order sheet to Blood Bank to grape picker blood products in validated cooler
Immediately return to patient care area.
Blood products released by
Blood Products picked up by
Sent to
Date and Time
05/26/25 16:15
NORepinephrine 4 MG/250 ML [Levophed] 4 mg in 250 ml IV PER PROTOCOL
Initial dose in mcg/min, then titrate:: 2
Titrate to keep:: MAP > 65 mmHg
Titrate by mcg/min:: 1-2 mcg/min
Frequency of titrations (minutes):: 5
Maximum dose in ICU in mcg/min:: 30
Maximum dose in IMU in mcg/min:: 8
Maximum dose in IVU in mcg/min:: 4
Begin to taper infusion when:: Remained at goal for 4hrs
Taper by mcg/min:: 1-2 mcg/min
Frequency of taper (minutes) if patient maintains goal:: 30
Taper to off?: Yes
If infusion off & no longer maintaining goal:: Contact Provider
05/26/25 16:46
Consult Interventional Radiology [IRAD CONSULT] Urgent
Consulting Provider: Rodger Salcido
Was physician already notified: Yes
Procedure being ordered, including laterality if applicable: drain to abscess in gb fossa
Acknowledgement that appropriate orders are entered: Yes
05/26/25 16:50
Piperacillin/Tazo 3.375 Gram [Zosyn] 3.375 gram in 50 ml IV NOW
05/26/25 16:56
Pantoprazole 80 mg/100 ml Nss [Protonix] 80 mg in 100 ml IV NOW
Pantoprazole [Protonix IV] 40 mg IV NOW STA
05/26/25 16:59
PT/INR [Prothrombin Time] Urgent
05/26/25 17:03
HYDROmorphone [Dilaudid] 0.5 mg IV NOW STA
Abnormal Lab Results
05/26/25 05/26/25 05/26/25
14:15 14:28 16:08
WBC 17.0 H 10^3/uL
(4.8-10.8)
RBC 2.35 L 10^6/uL
(4.20-5.40)
Hgb 7.2 L D g/dL
(12.0-16.0)
Hct 21.8 L %
(37.0-47.0)
Abs Immat Gran (auto) 0.5 H 10^3/uL
(0-0.05)
Absolute Neuts (auto) 15.3 H 10^3/uL
(1.4-6.5)
Absolute Lymphs (auto) 0.5 L 10^3/uL
(1.2-3.4)
Immature Gran % 2.9 H %
(0-0.5)
Neutrophils % 90.4 H %
(42.2-75.2)
Lymphocytes % 3.1 L %
(20.5-51.1)
Sodium 131 L mmol/L
(135-145)
BUN 30 H mg/dl
(7-17)
Glucose 259 H mg/dl
(70-99)
Lactic Acid 2.6 H mmol/L
(0.7-2.0)
Calcium 7.6 L mg/dl
(8.4-10.2)
AST 37 H U/L
(14-36)
ALT 87 H U/L
(0-35)
Alkaline Phosphatase 274 H U/L
(38-126)
Total Protein 5.1 L g/dl
(6.3-8.2)
Albumin 2.5 L g/dl
(3.5-5.0)
Lipase 801 H U/L
(23-300)
Crossmatch IS Only See Detail
05/26/25 14:15
05/26/25 14:15
Vital Signs
Initial and Last Documented VS:
Initial Vital Signs
Temp Pulse Resp BP Pulse Ox
36.7 C 94 20 86/40 97
05/26/25 12:53 05/26/25 12:53 05/26/25 12:53 05/26/25 12:53 05/26/25 12:53
Last Documented Vital Signs
Temp Pulse Resp BP Pulse Ox
36.7 C 98 17 148/76 96
05/26/25 12:53 05/26/25 17:00 05/26/25 17:00 05/26/25 17:00 05/26/25 17:00
<Maci Velásquez PA-C - Last Filed: 05/26/25 17:06>
MDM/Problems Addressed
Differential Diagnosis Includes:
see MDM
MDM/Problems Addressed:
Note:
CHIEF COMPLAINT(S)
Severe abdominal pain, fatigue, and jaundice.
HISTORY OF PRESENT ILLNESS
The patient is an 89-year-old female s/p rach on 05/19 dr. catalan discharged on 05/22 who developed severe abdominal pain on 05/24 . pt was also sweaty with the pain. She did not experience vomiting. To manage the pain, she had to lean forward in
bed. On Saturday, she reported no pain and was able to eat normally. However, today, the severe pain returned. The family noted that she appeared jaundiced and her general demeanor showed fatigue.
Her blood pressure has been noted to be very low, reported to be around 80 mmHg. The patients son reported that the low blood pressure and jaundice were observed by their family doctor as well. The pain reportedly worsened when she attempted to use
the bathroom.
pt has not had vomiting, diarrhhea, bleeding, confusion
ADDITIONAL HISTORY OBTAINED FROM SOURCES OTHER THAN THE PATIENT
Per the patients son, the patient does not speak much Arabic. He reported that she experienced severe pain starting Saturday night and appeared jaundiced today (Saturday).
CHRONIC MEDICAL CONDITIONS SIGNIFICANTLY AFFECTING CARE
Jaundice was noted. It is uncertain whether the patient has underlying liver disease.
SOCIAL DETERMINANTS AFFECTING HEALTH
Language barrier as the patient does not speak much Arabic.
ALLERGIES
The patient is reportedly allergic to an unspecified substance, which reportedly causes her to feel like she is 'on fire.'
PHYSICAL EXAM
GENERAL: Alert , uncomfortable
EYE: pupils equal and reactive, sclera is not icteric
NECK: Supple
ENT: o/p clr, mmm.
CARDIAC: Regular rate and rhythm .
LUNGS: Clear breath sounds bilaterally, no acute respiratory distress, no wheezes/rales/rhonchi
ABDOMEN: Soft, diffusely tender, incision sites are closed, no r/g, no cvat, normal bowel sounds
Heme positive dark black stool
NEUROLOGICAL: Alert and oriented, no focal neuro deficits
SKIN: Warm and dry, skin intact. Pale
MUSCULOSKELETAL: No edema, well perfused. neg venessa's sign
PSYCH: Normal and appropriate interaction.
Nursing notes reviewed and vital signs reviewed.
PLAN
1. Contact the surgeon for consultation.
2. Obtain an abdominal scan to assess for potential leak or other abdominal pathology.
3. Administer small doses of strong pain medication, taking care due to her low blood pressure.
4. Monitor blood pressure closely due to its already low status.
5. Follow up closely with the patient and her family regarding her symptomatic changes and any updates on diagnostic imaging.
DIFFERENTIAL DIAGNOSIS
The Differential Diagnosis includes, in no particular order and is not limited to:
1. Cholecystitis
2. Hepatitis
3. Pancreatitis
4. Peritonitis
5. Biliary obstruction
6. Peptic ulcer disease
7. Mesenteric ischemia
8. Gastroenteritis
9. Intestinal obstruction
10. Myocardial infarction with referred pain to the abdomen
89-year-old female 7 days postop of laparoscopic cholecystectomy with abdominal pains for the past 2 days waxing and waning, with sweatiness. Patient is been on antibiotics since discharge. She has not had a fever. She is not vomiting. In the
primary's office today patient was pale and hypotensive and sent in after the primary consulted with the surgeon who did her surgery. Patient appears weak, uncomfortable, diffusely tender in her abdomen which is nondistended, she is pale, was not
sure if she actually was jaundiced to initially but her T. bili is normal. Patient's white count is elevated 17 with a left shift, her hemoglobin dropped 4 g. This raise a concern for intra-abdominal hemorrhage. We changed the order to a CTA.
She was consented for blood and for 2 units however the patient decompensated despite IV fluid resuscitation. I ordered Levophed which was not started yet, patient was transported to CT scan, she still mentating but uncomfortable. She has been
given small doses of pain medication. Changed the blood transfusion order to uncrossed match blood given her decompensation.
Patient returned from CT still hypotensive, RN started Levophed and hung the blood. Patient is now stabilized, we will likely turn the Levophed off soon. Patient CTA showed no active bleeding but there is a gallbladder fossa collection that look
like an abscess without any hemorrhage. Patient has diverticulosis without diverticulitis. I did a Hemoccult test and she had heme positive dark stool, it is not acutely bloody. But her son then said that he had seen some blood in her stool
yesterday. Patient will be started on a Protonix drip and I notified Dr. Jimenez from GI as well as the hospitalist that the patient would require ICU for level of care. Dr. Catalan will speak with IR about draining the collection
<Maci Velásquez PA-C - Last Filed: 05/26/25 17:06>
*Pulse Oximetry
SaO2: 97
Oxygen Mode of Delivery: Room air
Patient hypoxic: no (92)
*Critical Care Note
Total Time (30-74mins, 75-104mins- exclusive of procedures): Not Applicable
ED Attending Note
<Maci Velásquez PA-C - Last Filed: 05/26/25 17:06>
-
Portions of this chart may have been created with voice recognition software.� Occasional wrong word or��sound alike� substitutions may have occurred due to the inherent limitations of voice recognition software.
<Regino Daly DO - Last Filed: 05/26/25 15:00>
ED Attending Note
Patient seen and examined by attending physician: Yes
I performed the substantive portion of visit, reviewed & personally made and approve the management plan that is documented in note by myself or MARISSA.: Yes
ED Attending Note:
89-year-old female status post lap rach presents belly pain jaundice low blood pressure anemia
Plan will be volume resuscitation antibiotics CT scan surgical consultation
Discharge Plan
Departure
Patient Disposition: Admit
Date of Disposition: 05/26/25
Time of Disposition: 16:44
Admit to: ICU
Presentation/result/management discussed w/ accepting MD/DO: Hospitalist
Condition: Fair
Covid-19: Not Applicable
Discharge Problem:
Acute anemia, Septic shock
Prescriptions:
No Action
alendronate [Fosamax] 70 mg Tablet
70 mg PO TU
cyanocobalamin (vitamin B-12) 1,000 mcg Tablet
1,000 mcg PO DAILY
folic acid 1 mg Tablet
1 mg PO DAILY
cholecalciferol (vitamin D3) [Vitamin D3] 25 mcg (1,000 unit) Tablet
25 mcg PO DAILY
omega-3 fatty acids-fish oil 684-1,200 mg Capsule,Delayed Release(Dr/Ec)
1 cap PO DAILY
lutein 6 mg Tablet
6 mg PO BID
multivitamin Tablet
1 tab PO DAILY
glipizide 10 mg Tablet
10 mg PO BID
Januvia 100 mg Tablet
100 mg PO DAILY
psyllium Packet
1 packet PO DAILYPRN PRN (Reason: constipation)
insulin degludec 100 unit/mL (3 mL) insulin pen
18 unit SC HS
Ozempic 0.25 mg or 0.5 mg (2 mg/3 mL) Pen Injector
0.25 mg SC SA
Rx Instructions:
for 4 weeks
tramadol 50 mg Tablet
50 mg PO Q6HPRN PRN (Reason: mod pain po option) Qty: 20 0RF
amoxicillin-pot clavulanate [Augmentin] 500-125 mg tablet
1 tab PO BID Qty: 10 0RF
polyethylene glycol 3350 17 gram Powder In Packet
17 g PO DAILY Qty: 14 0RF
Rx Instructions:
Hold for loose stools
sennosides-docusate sodium [Senna Plus] 8.6-50 mg Tablet
1 tab PO BID Qty: 10 0RF
Rx Instructions:
Hold for loose stools
Referrals:
Alexandria Coronado MD [Family Provider, Family Practice]
Interventions
Interventions:
*Risk Screen - Suicide Last Done: 05/26/25 14:19
*General Assessment Last Done: 05/26/25 12:53
*Neglect/Abuse Screening Last Done: 05/26/25 14:19
DX-Nxzzzy-Xduwfibiqr Assessment Last Done: 05/26/25 17:03
Discharge Date and Time
Print Language: WELSH
[2025-05-26] MEDS: NSS 1000 IV (14:30)
[2025-05-26 14:31] LABS: Hematocrit 21.8 % (37.0-47.0); Hemoglobin 7.2 g/dL (12.0-16.0); Mean Corp Hgb Conc. 33.0 g/dL (33.0-37.0); Mean Corpuscular Volume 92.8 fL (81.0-99.0); Nucleated Red Blood Cells % 0 %; Platelet Count 341 10^3/uL (130-400); Red Cell Dist. Width 14.4 % (11.5-14.5)
[2025-05-26 14:42] LABS: ALT (SGPT) 87 U/L (0-35); AST (SGOT) 37 U/L (14-36); Albumin 2.5 g/dl (3.5-5.0); Alkaline Phosphatase 274 U/L (38-126); Calcium 7.6 mg/dl (8.4-10.2); Carbon Dioxide 24 mmol/L (22-30); Chloride 103 mmol/L (98-107); Estimated Creatinine Clearance 33 ml/min; Glucose 259 mg/dl (70-99); Lipase 801 U/L (23-300); Potassium 4.8 mmol/L (3.5-5.1); Sodium 131 mmol/L (135-145); Total Protein 5.1 g/dl (6.3-8.2); eGFR > 60.00
[2025-05-26 14:43] LABS: Blood Urea Nitrogen 30 mg/dl (7-17)
[2025-05-26] MEDS: DILAUDID 0.25 MG IV ×2 (14:58→15:40)
[2025-05-26] MEDS: UNASYN IV (15:36)
--- NOTE | 2025-05-26 16:15 | CON.GS ---
Addendum entered and electronically signed by Jean-Pierre Catalan MD 05/26/25 17:04:
Further discussion with son and ED, reporting dark stools, she has not been taking NSAIDs. PALMER per ED with occult positive blood. She does have a known hx of hemorrhoids.
A bleeding ulcer could explain her presentation (pain, leukocytosis, blood loss). Would initiate PPI gtt, and still proceed with drain to gb fossa to rule out infection.
Addendum entered and electronically signed by Jean-Pierre Catalan MD 05/26/25 16:48:
CT reviewed. 5cm x 3cm GB fossa collection c/w abscess. No blush. No free fluid. Nothing to explain the significant Hb drop.
Plan to proceed with transfusion 2 u PRBC
IV abx
Consult to IR for drain
D/w son, all ?s answered
Original Note:
Consultation
-
Date/Time Consultation Performed: 05/26/25
Requesting Provider: Didier
Performing Provider: Alayna
Reason for Consultation: Abd pain
Medical History
-
Chief Complaint: Abd pain
History of Present Illness:
89F POD7 s/p rCCY returns to ED after PCP visit with concern for borderline hypotension, weakness, and ongoing abd pain. She was DC'ed POD3 with stable Hb post-op, tolerating diet. Her son reports she was eating and overall was improving until 2
days ago she began to have increased abd pain, she reports it is worse with BMs, also reports diaphoresis. No reported change to stool or urine. Denies f/c/n/v.
Past Medical History
Past Medical History: Other (DM-II Osteoporosis CKD)
Past Surgical History: Cholecystectomy and Other (Bilateral TKA Left TSA)
Social History
Tobacco: Non-Smoker
Alcohol: None
Living: With Family
Family History
Family History: Reviewed & Noncontributory
Allergies / Home Medications
Allergy/AdvReac Type Severity Reaction Status Date / Time
vancomycin AdvReac vancomycin Verified 10/15/25 12:53
infusion
reaction
04/28/23
�Medication �Instructions �Recorded �Confirmed �Type
alendronate 70 mg tablet (Fosamax) 70 mg PO TU OSTEOPOROSIS 09/01/22 05/18/25 History
cholecalciferol (vitamin D3) 25 25 mcg PO DAILY Supplement 09/01/22 05/18/25 History
mcg (1,000 unit) tablet (Vitamin
D3)
cyanocobalamin (vitamin B-12) 1,000 mcg PO DAILY Supplement 09/01/22 05/18/25 History
1,000 mcg tablet
folic acid 1 mg tablet 1 mg PO DAILY Supplement 09/01/22 05/18/25 History
omega-3 fatty acids-fish oil 684 1 cap PO DAILY Supplement 09/01/22 05/18/25 History
mg-1,200 mg capsule,delayed release
lutein 6 mg tablet 6 mg PO BID Supplement 02/04/23 05/18/25 History
multivitamin 1 tab PO DAILY Supplement 02/07/23 05/18/25 History
glipizide 10 mg tablet 10 mg PO BID Diabetes 03/12/24 05/18/25 History
sitagliptin phosphate 100 mg 100 mg PO DAILY Diabetes 03/12/24 05/18/25 History
tablet (Januvia)
insulin degludec 100 unit/mL (3 18 unit SC HS Diabetes 05/18/25 05/18/25 History
mL) subcutaneous pen
psyllium 1 packet PO DAILYPRN PRN 05/18/25 05/18/25 History
constipation
semaglutide 0.25 mg or 0.5 mg (2 0.25 mg SC SA Diabetes 05/18/25 05/18/25 History
mg/3 mL) subcutaneous pen injector
(Ozempic)
amoxicillin 500 mg-potassium 1 tab PO BID #10 tabs 05/21/25 Rx
clavulanate 125 mg tablet
(Augmentin)
tramadol 50 mg tablet 50 mg PO Q6HPRN PRN mod pain po 05/21/25 Rx
option #20 tabs
polyethylene glycol 3350 17 gram 17 g PO DAILY #14 ea 05/22/25 Rx
oral powder packet
sennosides 8.6 mg-docusate sodium 1 tab PO BID #10 tabs 05/22/25 Rx
50 mg tablet (Senna Plus)
Review of Systems
-
A 10 point review of systems was completed, and was negative except as per HPI.
Physical Exam
Vital Signs
Temp Pulse Resp BP Pulse Ox
98.0 F 93 23 93/39 97
05/26/25 12:53 05/26/25 15:30 05/26/25 15:30 05/26/25 15:30 05/26/25 15:30
05/25/25 05/26/25 05/27/25
06:59 06:59 06:59
Actual Weight 58 kg
Body Mass Index (BMI) 25.8
Lab Results
05/26/25 14:15
05/26/25 14:15
WBC 17.0 10^3/uL (4.8-10.8) H 05/26/25 14:15
Hgb 7.2 g/dL (12.0-16.0) L D 05/26/25 14:15
Hct 21.8 % (37.0-47.0) L 05/26/25 14:15
Plt Count 341 10^3/uL (130-400) D 05/26/25 14:15
Abs Immat Gran (auto) 0.5 10^3/uL (0-0.05) H 05/26/25 14:15
Neutrophils % 90.4 % (42.2-75.2) H 05/26/25 14:15
Physical Exam
General: Other (mild distress)
HEENT: Normocephalic and Anicteric
GI: Soft, Tender (diffuse ttp, mod-sev, non-focal, no rigidity, no guarding, non distended) and Incisions (cdi with glue)
Skin: Other (no jaundice)
Neuro: AO x 3
Data Reviewed
-
Labs: Labs Reviewed by me, Discussed with Physician, Discussed with Patient and Discussed with Family
Assessment / Plan
-
89F with abd pain POD7 s/p rCCY
Borderline hypotensive in the ED, no tachycardia, no fever
Tender on exam without peritonitis
Labs notable for Hb drop 11.3 POD3 stable from time of surgery, today 7.2
Leukocytosis also noted
AST/ALT/ALP elevated
Tbili WNL
Lipase 801
Concern for delayed post-op bleeding, surgical site infection (class III wound and diabetic), choledocholithiasis/cholangitis, gallstone pancreatitis
Plan for stat CTA to rule our active bleeding
Would proceed to IR if blush identified on CTA
Hospitalist admit
IV abx
Transfuse 2 units PRBC given low BP and Hb 7.2
NPO for now
GS will follow
[2025-05-26] MEDS: LEVOPHED 250 IV ×2 (16:44→20:20)
--- NOTE | 2025-05-26 16:52 | HPS.HSE ---
Family Physician
-
Family Physician: Alexandria Coronado
Chief Complaint
-
Abdominal Pain and Low Blood Pressure
History of Present Illness
Patient is a 89 y/o female past medical history of diabetes mellitus, CKD stage II and recent cholecystitis who presents with abdominal pain and low blood pressure. Patient was recently admitted to [facility] from May 18 to May
with acute cholecystitis and she underwent robotic cholecystectomy. Additional history is provided by patient's son at the bedside who also acts as patient's balance wheel arm burnisher. Patient has been complaining about persistent abdominal pain. Son
wanted to bring her back to the emergency department two days ago but patient refused. Today patient was seen by her primary care provider who noted her blood pressure was very low and sent her to the emergency department for evaluation. Work-up in
the emergency department revealed 4gm drop in hemoglobin associated with heme-positive stool, as well as evidence of gallbladder fossa abscess.
Medical History
Past Medical History
Past Medical History: Reports Other
Additional Past Medical History:
Diabetes Mellitus, Type II
CKD Stage II
Osteoporosis
Past Surgical History: Reports Other
Additional Past Surgical History:
Bilateral TKA
Left TSA
Social History
Tobacco: Non-smoker
Alcohol: None
Drug: None
Family History
Family History: Not pertinent
Allergies / Home Medications
Allergies reflects when Allergies were last updated in [employer].
Home Medications with original date entered in [employer]
Allergy/Medication List:
Allergies
Allergy/AdvReac Type Severity Reaction Status Date / Time
vancomycin AdvReac vancomycin Verified 05/26/25 12:53
infusion
reaction
04/28/23
Home Medications
alendronate 70 mg tablet (Fosamax) 70 mg PO TU OSTEOPOROSIS 09/01/22
cholecalciferol (vitamin D3) 25 mcg (1,000 unit) tablet (Vitamin D3) 25 mcg PO DAILY Supplement 09/01/22
cyanocobalamin (vitamin B-12) 1,000 mcg tablet 1,000 mcg PO DAILY Supplement 09/01/22
folic acid 1 mg tablet 1 mg PO DAILY Supplement 09/01/22
omega-3 fatty acids-fish oil 684 mg-1,200 mg capsule,delayed release 1 cap PO DAILY Supplement 09/01/22
lutein 6 mg tablet 6 mg PO BID Supplement 02/04/23
multivitamin 1 tab PO DAILY Supplement 02/07/23
glipizide 10 mg tablet 10 mg PO BID Diabetes 03/12/24
sitagliptin phosphate 100 mg tablet (Januvia) 100 mg PO DAILY Diabetes 03/12/24
insulin degludec 100 unit/mL (3 mL) subcutaneous pen 18 unit SC HS Diabetes 05/18/25
psyllium 1 packet PO DAILYPRN PRN constipation 05/18/25
semaglutide 0.25 mg or 0.5 mg (2 mg/3 mL) subcutaneous pen injector (Ozempic) 0.25 mg SC SA Diabetes 05/18/25
amoxicillin 500 mg-potassium clavulanate 125 mg tablet (Augmentin) 1 tab PO BID #10 tabs 05/21/25
tramadol 50 mg tablet 50 mg PO Q6HPRN PRN mod pain po option #20 tabs 05/21/25
polyethylene glycol 3350 17 gram oral powder packet 17 g PO DAILY #14 ea 05/22/25
sennosides 8.6 mg-docusate sodium 50 mg tablet (Senna Plus) 1 tab PO BID #10 tabs 05/22/25
Review of Systems
-
Unable to obtain full review of systems at this time due to: Language Barrier
Physical Exam
Vital Signs
Vital Signs
Temp Pulse Resp BP Pulse Ox
98.0 F 99 20 105/60 92
05/26/25 12:53 05/26/25 16:45 05/26/25 16:45 05/26/25 16:45 05/26/25 16:45
Physical Exam
General: Well Developed, Well Nourished and Pain
HEENT: NormoCephalic and Anicteric
Respiratory: Clear and Non Labored Respirations
Cardiac: S1/S2, Regular Rhythm and Tachycardia
GI: Soft and Tender (Mild throughout with moderate tenderness in right upper quadrant)
Rectal: Hem Positive (Per ED provider)
Musculoskeletal: No Clubbing, No Cyanosis and No Edema
Skin: Warm and Dry
Neuro: Awake, Alert and Nonfocal/grossly intact
Psych: Calm
Laboratory Results
-
05/26/25 14:15
05/26/25 14:15
Laboratory Results
Lactic Acid 2.6 mmol/L (0.7-2.0) H 05/26/25 14:28
Total Bilirubin 0.9 mg/dl (0.2-1.3) 05/26/25 14:15
AST 37 U/L (14-36) H 05/26/25 14:15
ALT 87 U/L (0-35) H 05/26/25 14:15
Alkaline Phosphatase 274 U/L (38-126) H 05/26/25 14:15
Lipase 801 U/L (23-300) H 05/26/25 14:15
Abd/Pelvis CT Angio:
1. Status post cholecystectomy. Fluid collection the gallbladder fossa as described likely reflecting abscess and/or biloma.
2. No overt CT evidence for active bleeding.
3. New small bilateral pleural effusions.
Data Reviewed
-
CT Scan: Report Reviewed by me
Lab Data: Labs Reviewed by me
Impression/Plan
-
Shock, combination of Hemorrhagic Shock due to GI bleed and Septic Shock due to Gallbladder Fossa Abscess
-Admit to ICU
-Transfused 2 units PRBCs emergently in ED - Monitor serial H&Hs
-Continue IVFs
-Continue blood pressure support with Levophed
Gallbladder Fossa Abscess
-General Surgery Consult
-IR consulted - Planning for percutaneous drainage tonight
-Continue Zosyn
GI Bleed, likely upper as stool reported as black/melena
-Consult GI
-Continue NPO/IVFs
-Continue Protonix Drip
Diabetes Mellitus, Type II
-Continue Lantus 8 units HS (half usual dose)
-Hold oral meds
-Monitor sugars and continue coverage insulin
DVT proph: SCDs
Code Status: Full Code
[2025-05-26] MEDS: ZOSYN 50 IV (17:00)
--- NOTE | 2025-05-26 17:13 | W.PN.UPDATE ---
Addendum entered and electronically signed by Lina Kang MD 05/26/25 17:42:
On exam patient appears frail, reports abdominal pain. Lungs clear. Abdomen with tenderness all 4 quadrants, mainly RUQ, no LE swelling.
Original Note:
Update Note
Progress Note Update
This is an addendum to H&P written by INGA Car
I saw and examined the patient.
The 7TH GRADE SOCIAL STUDIES TEACHER's note was reviewed and I agree with the note.
Comment:
Ms. Ofelia Hawkins is a 89 yo woman with hx IDDM, CKD II, recent admission 05/18-05/22/25 for acute cholecystitis s/p cholecystectomy 05/19/25 represents to the ER today with ongoing abdominal pain with CT showing abscess in gallbladder fossa.
Triage VS: T 36.7 C, P 94, RR 20, BP 86/40, SpO2 97%
LABS: WBC 17, Hg 7.2, PLT 341, Na 131, K+ 4.8, CO2 24, Cr 0.9, Glucose 259, Lactate 2.6, T. Bili 0.9, AST 37, ALT 87, Alk Phos 274, Lipase 801
CXR
IMPRESSION:
No acute disease of the chest.
Mild right lower lobe atelectasis versus scarring. Mildly improved.
Abdomen/Pelvis CT
IMPRESSION:
1. Status post cholecystectomy. Fluid collection the gallbladder fossa as described likely reflecting abscess and/or biloma.
2. No overt CT evidence for active bleeding.
3. New small bilateral pleural effusions.
Septic Shock
status post Cholecystectomy with Abscess in gallbladder fossa
-started on IV Levophed
-IV Zosyn
-give additional fluids now
-admit to ICU
-appreciate GS consult; IR consulted for drainage
-IV Dilaudid PRN
Acute Blood Loss Anemia
Melena
-4 point Hg drop in 5 days with reports of melena
-patient s/p 2 units PRBC
-IV Protonix gtt
-GI consult
-trend Hg
IDDM
-hold oral anti-hyperglycemics
-Lantus 8 units qhs
-ISS low
Remainder of plan per PA note
Total Critical Care Time 60 minutes. I was immediately available to the patient and staff. I personally examined, reviewed labs, diagnostic images/reports, interpretations, treatment plans, discussed patient care with other providers and family
or caregivers (if patient is unable to make decisions), entered orders as appropriate and documented the medical record.
[2025-05-26] MEDS: PROTONIX IV 40 MG IV ×2 (17:23→20:06)
[2025-05-26] MEDS: DILAUDID 0.5 MG IV (17:23)
[2025-05-26 17:26] LABS: Urine Character Clear (Clear)
[2025-05-26] MEDS: NSS 500 IV (17:31)
[2025-05-26 17:36] LABS: INR 1.07; PT 14.4 Sec (11.4-14.6)
[2025-05-26 17:43] LABS: Urine Squamous Cell >30 /LPF (Few)
--- NOTE | 2025-05-26 19:08 | W.PN.UPDATE ---
Update Note
Progress Note Update
- CT guided 8.5F drain placement into RUQ/gb fossa collection. 10mL of slightly turbid/serosanguineous fluid. Samples sent.
- Pt tolerated well. Drain orders placed.
[2025-05-26 19:45] LABS: Glucose - Point of Care 264 mg/dl (70-99)
[2025-05-26] MEDS: LR 1000 IV (19:46)
[2025-05-26 19:51] LABS: APTT 30.3 Sec (23.4-35.0)
[2025-05-26] MEDS: NOVOLOG FLEXPEN-MODERATE RESISTANCE 5 UNITS SC (19:56)
[2025-05-26] MEDS: NSS (PRESERVATIVE FREE) 10 ML IV (20:07)
[2025-05-26 20:13] LABS: Magnesium 2.1 mg/dl (1.6-2.3)
[2025-05-26 20:43] LABS: Hematocrit 26.4 % (37.0-47.0); Hemoglobin 8.8 g/dL (12.0-16.0)
--- NOTE | 2025-05-26 21:00 | PTCARENOTE ---
Received patient from IR on room air with a fluid bolus infusing. RUQ CARLOS drain dressing clean dry and intact draining. See nursing assessment in worklist for assessment details. Levophed restarted to maintain MAP above 65. Patient pashto speaking-
son at bedside participating in care. Repeat hgb 8.8. Afebrile. Normal sinus rhythm on the monitor.
[2025-05-26] MEDS: LANTUS 0.14 UNITS SC (21:20)
[2025-05-26 21:31] LABS: Glucose - Point of Care 197 mg/dl (70-99)
[2025-05-26 23:16] LABS: Glucose - Point of Care 142 mg/dl (70-99)
[2025-05-26] MEDS: NOVOLOG FLEXPEN-MODERATE RESISTANCE SC (23:23)
[2025-05-27] VITALS (25 sets, daily range): BP systolic 94–128; BP diastolic 46–80; BMI 25.5
[2025-05-27] MEDS: ZOSYN 50 IV ×4 (00:04→21:03)
--- NOTE | 2025-05-27 00:10 | PTCARENOTE ---
No changes from previous assessment. Weaned off levo. RUQ CARLOS drain with serosanguinous output. Dressing dry and intact. No complaints of pain.
[2025-05-27] MEDS: DILAUDID 0.5 MG IV ×4 (03:12→19:08)
[2025-05-27 03:45] LABS: Hematocrit 23.5 % (37.0-47.0); Hemoglobin 7.9 g/dL (12.0-16.0); Mean Corp Hgb Conc. 33.6 g/dL (33.0-37.0); Mean Corpuscular Volume 92.9 fL (81.0-99.0); Platelet Count 252 10^3/uL (130-400); Red Cell Dist. Width 14.4 % (11.5-14.5)
[2025-05-27 03:52] LABS: ALT (SGPT) 60 U/L (0-35); AST (SGOT) 29 U/L (14-36); Albumin 1.8 g/dl (3.5-5.0); Alkaline Phosphatase 164 U/L (38-126); Blood Urea Nitrogen 24 mg/dl (7-17); Calcium 6.6 mg/dl (8.4-10.2); Carbon Dioxide 23 mmol/L (22-30); Chloride 111 mmol/L (98-107); Estimated Creatinine Clearance 49 ml/min; Glucose 67 mg/dl (70-99); Potassium 4.1 mmol/L (3.5-5.1); Sodium 134 mmol/L (135-145); Total Protein 4.2 g/dl (6.3-8.2); eGFR > 60.00
--- NOTE | 2025-05-27 04:04 | PTCARENOTE ---
Patient with complaints of 7/10 RUQ abd pain. PRN dilaudid administered and effective. Sp02 89 percent while asleep- placed on 2 liters NC. Glucose with AM labs 67. Given 4 ounces of orange juice. Critical calcium of 6.6- icu provider made aware and
ordered calcium gluconate.
[2025-05-27] MEDS: CALCIUM GLUCONATE 130 MG IV (04:19)
[2025-05-27 04:29] LABS: Glucose - Point of Care 94 mg/dl (70-99)
[2025-05-27 06:24] LABS: Glucose - Point of Care 92 mg/dl (70-99)
--- NOTE | 2025-05-27 06:39 | CON.GI ---
Addendum entered and electronically signed by Nicolette Jimenez MD 05/27/25 19:52:
I saw and examined the patient.
The BACKHOE OPERATOR or PA's note was reviewed and I agree with the note.
Comment: 89-year-old female who was recently admitted to the hospital 05/18-05/22 for acute cholecystitis status post laparoscopic cholecystectomy, discharged home now brought in by the son with complaints of abdominal discomfort and black stool,
initially on admission noted to have hypotension needing pressors briefly but also noted to have 4 g drop in hemoglobin compared to last admission and heme positive stool. CT scan of the abdomen and pelvis showed fluid collection in the gallbladder
fossa, questionable abscess but IR drain showed serosanguineous fluid. She also had leukocytosis to about 17,000 on admission, currently on broad-spectrum antibiotic. She was taking Toradol after discharge and not sure if she was on NSAIDs that
she got from [place] when she was traveling. As per son, she may have had an episode of GI bleeding about 3 years ago in [place] but never sought medical care.
Patient had upper endoscopy today-please see report for details but she was noted to have multiple duodenal ulcers with 1 ulcer in the duodenal sweep with visible vessel and significant bleeding, epinephrine injected, cauterized and Ovesco clips
placed with control of bleeding at the end of the procedure. She did receive 1 unit of packed red blood cells during the procedure.
- Continue pantoprazole drip
N.p.o., monitor H&H and transfuse as needed
If overt active bleeding or hypotensive episode, will need CT angiogram and IR intervention.
Discussed with patient's son regarding the above. She needs to completely hold off on all NSAIDs and needs to be on a PPI indefinitely for multiple ulcers noted in the duodenum, antrum and esophageal ulceration as well.
Continue ICU monitoring.
Original Note:
Consultation
-
Date/Time Consultation Requested: 05/26/25 9945
Date/Time Consultation Performed: 05/26/25 0700
Requesting Provider: Ludy Car PA-C
Performing Provider: LOLA Jauregui, Nicolette Jimenez MD
Reason for Consultation: GI bleed, gallbladder abscess
Medical History
Chief Complaint / HPI
Chief Complaint: black stools, abdominal pain
History of Present Illness:
Pt is an 89yo with hx NIDDM with Ozempic use, CKD stage II, osteoporosis, arthritis prior joint replacement with admission 05/18-05/22 with acute cholecystitis and robotic lap kam 05/19. She was noted with constipation during admission with opioid
use. She now returns with persistent abdominal pain and black stools. Pt initially declined return but was noted with hypotension. She initially required pressor for brief period on admission. In ER noted with 4 gram drop in hbg with heme +
stools and CT concern for fluid collection in gallbladder fossa with concern for abscess vs biloma. No overt active bleeding seen and new b/l pleural effusions. Pt went to IR after admission with drain placed in GB fossa with 10ml serosanguineous
drainage with bx pending. On admission WBC 17,000, hbg 7.2 with prior hbg 11.2 on 05/21, BUN 30, Na 131, glucose 259, bili 0.9, AST 37, ALT 87, alk phos 274, lipase 801 with improvement after admission.
In review with family, patient was in [place] in may with onset of abdominal pain. She was seen in 2 clinics with and give medication including Ketoloaco(supradol)-Ketrolac-injectable, medication for Panclasa (dietary supplement for
stomach support) and Espraven Enzimatico(for indigestion and gas) She then returned early from trip with kam as above. She states after kam began with black stools about 1-2 per day. After admission she was then noted with moderate amount of
burdundy She was noted with some constipation after surgery that did improved. Family initially did not see stools til several days later. She admits to occasional dysphagia and GERD, with nausea without vomiting. She states abdominal pain on
admission that is now slightly improved after drainage. She otherwise denies hematemesis or odynophagia. No hx EGD/colonoscopy in past. No anticoagulation use.
Past Medical History
Past Medical History: NIDDM, Renal Failure (CKD stage II) and Other (osteoporosis, arthritis )
Past Surgical History: Orthopedic (b/l [id number], and left TSA)
Social History
Tobacco: Non-Smoker
Alcohol: None
Drug: None
Living: With Family
Employment: Retired
Family History
Family History: Other (no family hx GI issues or colon Cancer)
Allergies / Home Medications
Allergy/AdvReac Type Severity Reaction Status Date / Time
vancomycin AdvReac vancomycin Verified 05/26/25 12:53
infusion
reaction
04/28/23
�Medication �Instructions �Recorded
alendronate 70 mg tablet (Fosamax) 70 mg PO TU OSTEOPOROSIS 09/01/22
cholecalciferol (vitamin D3) 25 25 mcg PO DAILY Supplement 09/01/22
mcg (1,000 unit) tablet (Vitamin
D3)
cyanocobalamin (vitamin B-12) 1,000 mcg PO DAILY Supplement 09/01/22
1,000 mcg tablet
folic acid 1 mg tablet 1 mg PO DAILY Supplement 09/01/22
omega-3 fatty acids-fish oil 684 1 cap PO DAILY Supplement 09/01/22
mg-1,200 mg capsule,delayed release
lutein 6 mg tablet 6 mg PO BID Supplement 02/04/23
multivitamin 1 tab PO DAILY Supplement 02/07/23
glipizide 10 mg tablet 10 mg PO BID Diabetes 03/12/24
sitagliptin phosphate 100 mg 100 mg PO DAILY Diabetes 03/12/24
tablet (Januvia)
insulin degludec 100 unit/mL (3 18 unit SC HS Diabetes 05/18/25
mL) subcutaneous pen
psyllium 1 packet PO DAILYPRN PRN 05/18/25
constipation
semaglutide 0.25 mg or 0.5 mg (2 0.25 mg SC SA Diabetes 05/18/25
mg/3 mL) subcutaneous pen injector
(Ozempic)
amoxicillin 500 mg-potassium 1 tab PO BID #10 tabs 05/21/25
clavulanate 125 mg tablet
(Augmentin)
tramadol 50 mg tablet 50 mg PO Q6HPRN PRN mod pain po 05/21/25
option #20 tabs
polyethylene glycol 3350 17 gram 17 g PO DAILY #14 ea 05/22/25
oral powder packet
sennosides 8.6 mg-docusate sodium 1 tab PO BID #10 tabs 05/22/25
50 mg tablet (Senna Plus)
Review of Systems
-
Unable to obtain full review of systems at this time due to: Language Barrier (patient hard of hearing per family does not do well with wage and salary administrator - son assist for history )
History Source: Patient and Family
Constitutional: Reports Weight Loss (few lbs decreased appetite since surgery ) and Fatigue
EENT: Reports No Symptoms
Respiratory: Reports No Symptoms
Cardiac: Reports No Symptoms
Abdomen/GI: Reports Abdominal Pain, Nausea, Constipated (post-op now improved ), Bloody Stools and Black Stools
: Reports No Symptoms
Musculoskeletal: Reports No Symptoms
Skin: Reports No Symptoms
Neurological: Reports Weakness
Endocrine: Reports No Symptoms
Hematologic/Lymphatic: Reports Bleeding
Vital Signs
Temp Pulse Resp BP Pulse Ox
98 F 74 14 116/55 98
05/27/25 03:20 05/27/25 06:00 05/27/25 06:00 05/27/25 06:00 05/27/25 06:00
Physical Exam
Exam
General: Well Developed, Well Nourished and No Apparent Distress
HEENT: Normocephalic
Respiratory: Clear
Cardiac: Regular Rhythm
GI: Soft, Non Distended, Tender (right sided around drain - states some improvement with drain) and Other (drain with small amount serous sang drainage)
Rectal: Other (per staff just had moderate burgundy stool)
Musculoskeletal: No Clubbing and No Cyanosis
Skin: Warm and Dry
Neuro: Awake, Alert, AO x 3 and Other (bulgarian speaking)
Psych: Calm
Results
WBC 9.5 10^3/uL (4.8-10.8) 05/27/25 03:08
Hgb 7.9 g/dL (12.0-16.0) L 05/27/25 03:08
Hgb Cancelled 05/27/25 03:08
Hct 23.5 % (37.0-47.0) L 05/27/25 03:08
Hct Cancelled 05/27/25 03:08
MCV 92.9 fL (81.0-99.0) 05/27/25 03:08
Plt Count 252 10^3/uL (130-400) D 05/27/25 03:08
Absolute Neuts (auto) 15.3 10^3/uL (1.4-6.5) H 05/26/25 14:15
PT 14.4 Sec (11.4-14.6) 05/26/25 17:10
INR 1.07 05/26/25 17:10
APTT 30.3 Sec (23.4-35.0) 05/26/25 17:10
Sodium 134 mmol/L (135-145) L 05/27/25 03:08
Potassium 4.1 mmol/L (3.5-5.1) 05/27/25 03:08
Chloride 111 mmol/L (98-107) H 05/27/25 03:08
Carbon Dioxide 23 mmol/L (22-30) 05/27/25 03:08
BUN 24 mg/dl (7-17) H 05/27/25 03:08
Creatinine 0.6 mg/dL (0.6-1.0) 05/27/25 03:08
Calcium 6.6 mg/dl (8.4-10.2) L* 05/27/25 03:08
Total Bilirubin 1.2 mg/dl (0.2-1.3) 05/27/25 03:08
AST 29 U/L (14-36) 05/27/25 03:08
ALT 60 U/L (0-35) H 05/27/25 03:08
Alkaline Phosphatase 164 U/L (38-126) H 05/27/25 03:08
Lipase 801 U/L (23-300) H 05/26/25 14:15
Diagnostic Image Results:
05/18/25 CT Abd/Pel (IV only)-DH only
Findings are consistent with acute cholecystitis
There is colonic diverticulosis but no evidence of diverticulitis
05/21/25 Obstruct Series W/pa Chest
No evidence of intestinal obstruction.
Bilateral hip osteoarthritis. Stable Lumbar spine dextroscoliosis. Stable Compression fracture. Stable
05/26/25 CXR
No acute disease of the chest.
Mild right lower lobe atelectasis versus scarring. Mildly improved.
05/26/25 CT Abd/pelvis Angio W/wo Iv
1. Status post cholecystectomy. Fluid collection the gallbladder fossa as described likely reflecting abscess and/or biloma.
2. No overt CT evidence for active bleeding.
3. New small bilateral pleural effusions.
Prior GI Procedures:
EGD: none
Colonoscopy: none
Assessment / Plan
-
Pt is an 89yo with hx NIDDM with Ozempic use, CKD stage II, osteoporosis, arthritis prior joint replacement with onset of abdominal pain admission 05/18-05/22 with acute cholecystitis and robotic lap kam 05/19. She was noted with constipation
during admission with opioid use. She now returns with persistent abdominal pain and black stools. Pt initially declined return but was noted with hypotension. She initially required pressor for brief period on admission. In ER noted with 4 gram
drop in hbg with heme + stools and CT concern for fluid collection in gallbladder fossa with concern for abscess vs biloma. No overt active bleeding seen and new b/l pleural effusions. Pt went to IR after admission with drain placed in GB fossa
with 10ml serosanguineous drainage with bx pending. On admission WBC 17,000, hbg 7.2 with prior hbg 11.2 on 05/21, BUN 30, Na 131, glucose 259, bili 0.9, AST 37, ALT 87, alk phos 274, lipase 801 with improvement after admission.
In review with family, patient was in [place] in may with onset of abdominal pain. She was seen in 2 clinics with and give medication including Ketoloaco(supradol)-Ketrolac-injectable, medication for Panclasa (dietary supplement for
stomach support) and Espraven Enzimatico(for indigestion and gas) She then returned early from trip with kam as above. She states after kam began with black stools about 1-2 per day. After admission she was then noted with moderate amount of
burdundy She was noted with some constipation after surgery that did improved. Family initially did not see stools til several days later. She admits to occasional dysphagia and GERD, with nausea without vomiting. She states abdominal pain on
admission that is now slightly improved after drainage. No hx EGD/colonoscopy in past. No anticoagulation use.
-abdominal pain
-hypotension with concern for shock on admission
-CT concern for GB abscess s/p drainage 10ml serous sang fluid
-black/burgundy stools afther kam
-anemia with 4 gram drop in hbg from prior admission
-hx Ketrolac-injectable NSAID use prior to kam
-s/p lap kam 05/19
other med problems:
- NIDDM with Ozempic use
-CKD stage II
-osteoporosis
-arthritis prior joint replacement
PLAN:
Etiology of black/burgundy stool and anemia unclear Upper, SB vs lower bleeding- BUN 30 minimal increase on admission- pepcid/duodenal ulcer, AVM, mass vs other
s/p IR drainage with minimal serous sang drainage
trend hbg 7.2--8.8--7.9
s/p transfusion
currently off pressors
last Ozempic 15 days ago
cont Protonix BID
plan for EGD today if neg t/c colonoscopy
NPO
cont abx
update son at bedside
son assist with language barrier as also hard of hearing and difficulty with interpretor
-
-
Thank you for consultation and allowing me to participate in the patient's care. Please call the salon receptionist GI physician during the after hours with any questions or concerns.
--- NOTE | 2025-05-27 07:15 | PTCARENOTE ---
Assumed care. Patient received lying in bed with eyes closed, respirations nonlabored on 2L/nc oxygen. See brine mixer operator charted on worklist flowsheet. Patient rouses easily to name called, PILY. Patient son at bedside. I speak some Yi so I am
able to communicate with patient, son helps to interpret at times. She states she has to have BM. Assisted to BSC with SBA, gait steady, denies dizziness. Patient had moderate loose tarry burgundy BM and voids without difficulty. Perineal and
partial cares given, partial linen change. Assisted back to bed and purewick placed. On bedrest. SCDs in place. S1S2 regular with positive murmur. SR on CM with pac. Sats 87-89% on RA, sats 95-97% on 2L/nc. BBS with LILIA clear. RUL and posterior BBS
with fine crackles scattered t/o. Denies SOB. Abdomen soft but tender RUQ, hyperactive bowel sounds. Old laparoscopic sites with dermabond CDI, RUQ CARLOS drain to bulb suction with serous blood tinged drainage, site WDL. C/o RUQ pain 5/10, prn Dilaudid
given IV as needed for pain. Bed in low and locked position, bed alarm on, call tilley within reach.
[2025-05-27] MEDS: PROTONIX IV 40 MG IV ×2 (07:33→21:03)
[2025-05-27] MEDS: NSS (PRESERVATIVE FREE) 10 ML IV ×2 (07:34→21:03)
--- NOTE | 2025-05-27 08:19 | VNURNOTE ---
Chart reviewed. Patient is current with [facility]. Will continue to follow hospital course and DC plans.
[2025-05-27 08:21] LABS: Glucose - Point of Care 77 mg/dl (70-99)
[2025-05-27] MEDS: LR 1000 IV (08:30)
--- NOTE | 2025-05-27 08:45 | W.PN.GS2 ---
Today's Communication / Plan
-
For EGD with GI
Assessment / Plan
-
89F POD 8 s/p rCCY now with GI bleed
Afebrile, BP soft but stable, no tachycardia
Pain improved, belly soft
IR drain with clear light ss fluid (non bilious, non purulent)
Medications from [place] indicate she has been taking toradol she purchased OTC there
2u PRBC transfused, Hb improved but trending down again
Leukocytosis normalized
Plan:
Cont NPO/IVF
Cont PPI gtt
D/w GI team, plans for endoscopy
Cont empiric abx for now pending Cxs
PRN pain meds
Avoid NSAIDs
SCDs only for DVT ppx
Trend Hb
GS will follow
Subjective Data
-
Date of Service: May 27, 2025
Afebrile, BP soft but stable, no tachycardia, pain much improved, hungry
Objective Data
-
Intake and Output
05/26/25 05/27/25 05/28/25
06:59 06:59 06:59
Intake Total 1438.9 / 1518.9 160 / 160
Output Total 635 / 635
Balance 803.9 / 883.9 160 / 160
Intake:
Oral fluids 240 / 240
IV fluids (Total) 898.9 / 978.9 160 / 160
Lactated Ringers 880 / 960 160 / 160
Levophed 18.9 / 18.9
IV piggybacks 280 / 280
Amount instilled into Drain (
Total)
Right Upper Abdomen Placed in
IR
Output:
Drain Output (Total)
Right Upper Abdomen Placed in
IR
Urine, Voided 600 / 600
Other:
How many times incontinent 1
MODERATE amount urine
Number of approximated LARGE 1
amounts of urine
Vital Signs
Temp Pulse Resp BP Pulse Ox
98.7 F 78 19 97/48 99
05/27/25 08:00 05/27/25 08:07 05/27/25 08:07 05/27/25 08:07 05/27/25 08:07
Calcium 6.6 mg/dl (8.4-10.2) L* 05/27/25 03:08
Phosphorus 3.9 mg/dl (2.5-4.5) 05/26/25 14:15
Magnesium 2.1 mg/dl (1.6-2.3) 05/26/25 14:15
Total Bilirubin 1.2 mg/dl (0.2-1.3) 05/27/25 03:08
AST 29 U/L (14-36) 05/27/25 03:08
ALT 60 U/L (0-35) H 05/27/25 03:08
Alkaline Phosphatase 164 U/L (38-126) H 05/27/25 03:08
Total Protein 4.2 g/dl (6.3-8.2) L 05/27/25 03:08
Albumin 1.8 g/dl (3.5-5.0) L 05/27/25 03:08
Physical Exam
-
Gen: NAD
Abd: soft, incisions cdi, drain with light clear ss fluid
Patient has a wilson catheter: No
Patient has a central line: No
--- NOTE | 2025-05-27 08:49 | CON.INTV ---
Consultation
Consultation Request
Date/Time Consultation Requested: 05/26/2025 17:15
Date/Time Consultation Performed: 05/27/2025 07:00
Requesting Provider: Ludy Car PA-C
Performing Provider: Hawk Hernandes DO (Resident); Gerard Adair MD
Reason for Consultation: Hypotension, Anemia
Medical History
-
Chief Complaint: Hypotension
History of Present Illness:
Ofelia Hutchins is a 89F w/ OMHx T2DM, CKD and recent cholecystitis s/p lap cholecystectomy on 05/19 who presented with abdominal pain. The patient was discharged home 5 days ago on antibiotics, tramadol and a bowel regimen. She was feeling okay for
2 days, and then 3 days ago started to experience what was descibed as 'really bad' abdominal pain that was associated with diaphoresis and fatigue. Per patient son, abdominal pain was better with leaning forward in a chair. Unclear whether patient
experienced jaundice. At onset, patient's family implored her to go to the hospital, but she refused. Patient only saw a health clinical manager home care one day ago for a transition of care visit s/p hospitalization for cholecystectomy. At this visit, the
patient was noted to be hypotensive and was sent to the ED.
Patient son also endorses that the patient was in [place] with her family just prior to her admission for cholecystitis. She was evaluated for similar pain and was advised to undergo surgery, but the family did not want her to get surgery in [place]
and preferred to return home for surgical evaluation. She was prescribed Toradol at that time.
ED COURSE
Upon arrival, patient hypotensive to 86/40. Other vitals AFVSS.
Diffusely tender abdomen w/o guarding or rebound tenderness.
Heme + stool, dark
Hb 7.2 (11.2 @ discharge), WBC 17K
BMP largely unremarkable, coags normal, LFTs with elevated transminases/alk-phos and normal bilirubin
Lactate 2.6, trended down to 1.3
Lipase 801
UA +, CXR neg
CTA Abdomen and Pelvis:fluid collection in GB fossa, either abscess or biloma, no evidence of bleed/extravasation.
Decompensated and started on Levophed
Given 2U pRBC
HOSPITAL COURSE
Has been off of Levophed since midnight last night, now on LR @ 80mL/hr
Otherwise no acute complaints overnight other than controlled RUQ pain.
Percutaneous drainage yielding 10cc of turbid sero-sanguinous fluid; CARLOS drain placed
Patient with 2 burgundy stools, one in morning, and one just prior to rounds.
Past Medical History
Past Medical History: NIDDM and Other (CKD)
Past Surgical History: Cholecystectomy and Orthopedic (bilateral TKR, L shoulder )
Social History
Tobacco: Non-smoker
Alcohol: None
Drug: None
Living: With Family
Family History
Family History: Reviewed & Not Pertinent
Allergies / Home Medications
Allergies
Allergy/AdvReac Type Severity Reaction Status Date / Time
vancomycin AdvReac vancomycin Verified 05/26/25 12:53
infusion
reaction
04/28/23
Home Medications
�Medication �Instructions �Recorded �Confirmed �Last Taken �Type
alendronate 70 mg tablet (Fosamax) 70 mg PO TU OSTEOPOROSIS 09/01/22 05/26/25 03/10/24 History
cholecalciferol (vitamin D3) 25 25 mcg PO DAILY Supplement 09/01/22 05/26/25 03/15/24 History
mcg (1,000 unit) tablet (Vitamin
D3)
cyanocobalamin (vitamin B-12) 1,000 mcg PO DAILY Supplement 09/01/22 05/26/25 03/15/24 History
1,000 mcg tablet
folic acid 1 mg tablet 1 mg PO DAILY Supplement 09/01/22 05/26/25 03/15/24 History
omega-3 fatty acids-fish oil 684 1 cap PO DAILY Supplement 09/01/22 05/26/25 03/15/24 History
mg-1,200 mg capsule,delayed release
lutein 6 mg tablet 6 mg PO BID Supplement 02/04/23 05/26/25 03/15/24 History
multivitamin 1 tab PO DAILY Supplement 02/07/23 05/26/25 03/15/24 History
glipizide 10 mg tablet 10 mg PO BID Diabetes 03/12/24 05/26/25 03/19/24 History
sitagliptin phosphate 100 mg 100 mg PO DAILY Diabetes 03/12/24 05/26/25 03/19/24 History
tablet (Januvia)
insulin degludec 100 unit/mL (3 18 unit SC HS Diabetes 05/18/25 05/26/25 Unknown History
mL) subcutaneous pen
psyllium 1 packet PO DAILYPRN PRN 05/18/25 05/26/25 Unknown History
constipation
semaglutide 0.25 mg or 0.5 mg (2 0.25 mg SC SA Diabetes 05/18/25 05/26/25 Unknown History
mg/3 mL) subcutaneous pen injector
(Ozempic)
amoxicillin 500 mg-potassium 1 tab PO BID #10 tabs 05/21/25 05/26/25 Unknown Rx
clavulanate 125 mg tablet
(Augmentin)
tramadol 50 mg tablet 50 mg PO Q6HPRN PRN mod pain po 05/21/25 05/26/25 Unknown Rx
option #20 tabs
polyethylene glycol 3350 17 gram 17 g PO DAILY #14 ea 05/22/25 05/26/25 Unknown Rx
oral powder packet
sennosides 8.6 mg-docusate sodium 1 tab PO BID #10 tabs 05/22/25 05/26/25 Unknown Rx
50 mg tablet (Senna Plus)
Review of Systems
-
History Source: Patient
All other systems: Negative unless noted
Vitals / Labs / Diagnostic Testing
Vital Signs
Temp Pulse Resp BP Pulse Ox
98.7 F 78 19 97/48 99
05/27/25 08:00 05/27/25 08:07 05/27/25 08:07 05/27/25 08:07 05/27/25 08:07
Laboratory Results
05/26/25
17:10
PT 14.4
INR 1.07
APTT 30.3
Diagnostic Testing:
Physical Exam
-
HEENT: Normocephalic, Anicteric and Moist Mucous Membranes
Cardiovascular: S1/S2 and Regular Rhythm
Respiratory: Other (faint crackles bilaterally )
GI: Soft, Non Distended and Tender (mild, RUQ; otherwise no guarding or rebound tenderness)
Neurology: Awake, Alert and No Motor Deficits
Skin: Warm and Good Color
General: Comfortable
Assessment
-
Ofelia uHtchins is an 89F w/ PMHx T2DM and CKD and recent cholecystitis s/p lap kam on 05/19 who presented with 3 days of moderate-severe abdominal pain and was found to be hypotensive and anemic with heme+ stools.
1. Shock (Hemmorhagic vs. Septic, or both)
- Hypotensive on arrival, hemodynamically stable through the morning, after pressors discontinued
- Currently on LR @80
- Decreased IVF rate based on new pleural effusions noted on CT and crackles on exam
- GB fossa abscess vs UTI for septic source
- UGIB (heme+ dark stool) as potential hemorrhagic source (patient recently on Toradol, BUN/Creat > 30)
- Continue Zosyn, await BCx, UCx
- Serial H/H, transfuse for Hb < 7
- Monitor WBC and fever curves
- Endoscopy per GI to localize source of bleed
2. Gallbladder Fossa Abscess vs. Biloma
- S/p lap kam 05/19
- Percutaenous drainage w/ turbid serosanguinous fluid
- CARLOS drain, minimal drainage, clear serosanguinous
- Likely not a source of infection
- Continue to monitor drain outputs
- Pain control PRN
3. Urinary Tract Infection
- Abx as above
4. Type 2 DM
- Borderline low fasting sugars, currently NPO
- Will change LR fluid to D5 LR
5. Bilateral Pleural Effusions
- New, small bilateral pleural effusions on CTA
- Faint crackles on posterior auscultatory exam
- No documented history of CHF
- Will decrease fluid rate to 40cc/hr
Data Reviewed
-
EKG: Tracing personally visualized and interpreted
Radiology: Image personally visualized and interpreted and Report reviewed by me
CT Scan: Image personally visualized and interpreted and Report reviewed by me
Labs: Labs reviewed by me and Discussed with Family
Critical Care Time (in minutes): 55
--- NOTE | 2025-05-27 09:01 | W.PN.HOSP.TC ---
Today's Communication/Plan
-
s/p drain
NPO for EGD
IVF
PPI
Assessment / Plan
Assessment / Plan
89F with Dm, CKD, recent cholecystectomy 05/19/25 p/w abd pain, found to have spetic shock, GB fossa abscess, anemia.
Septic Shock
status post Cholecystectomy with Abscess in gallbladder fossa
-started on IV Levophed now OFF
-IV Zosyn
-IVF
-appreciate GS consult; s/p IR drainage
-IV Dilaudid PRN
Acute Blood Loss Anemia
in setting of NSAID use
-4 point Hg drop in 5 days with reports of melena 11->7.2
-patient s/p 2 units PRBC improved to 7.9
-IV Protonix q12
-GI consulted plan for EGD today
-trend Hg
DM
-hold oral anti-hyperglycemics
-hypoglycemic on Lantus 8 units qhs - hold
-ISS low
Hypocalcemia
received repletion IV
re check BMP
DVT ppx
scds
Anticipated Discharge: > 48 hours
Subjective/Interval History
-
Date of Service: May 27, 2025
Pt c/o pain at drain insertion site, otherwise denies issues. Son at bedside acts as healthcare associate at pt's request. Per son pt had another BM a few minutes prior to my arrival that was dark but not grossly bloody.
Objective Data
-
Labs:
Laboratory Results
05/27/25 05/27/25 05/27/25
03:08 03:08 03:08
WBC 9.5
Hgb 7.9 L Cancelled
Hct 23.5 L Cancelled
Plt Count 252 D
Sodium 134 L
Potassium 4.1
Chloride 111 H
Carbon Dioxide 23
BUN 24 H
Creatinine 0.6
Glucose 67 L
Calcium 6.6 L*
Total Bilirubin 1.2
AST 29
ALT 60 H
Alkaline Phosphatase 164 H
05/27/25 05/27/25
10:00 10:30
WBC
Hgb Pending
Hct Pending
Plt Count
Sodium Pending
Potassium Pending
Chloride Pending
Carbon Dioxide Pending
BUN Pending
Creatinine Pending
Glucose Pending
Calcium Pending
Total Bilirubin
AST
ALT
Alkaline Phosphatase
Vital Signs:
Vital Signs
Temp Pulse Resp BP Pulse Ox
98.7 F 78 19 97/48 99
05/27/25 08:00 05/27/25 08:07 05/27/25 08:07 05/27/25 08:07 05/27/25 08:07
I&O
05/26/25 05/27/25 05/28/25
06:59 06:59 06:59
Intake Total 1438.9 / 1518.9 160 / 160
Output Total 635 / 635
Balance 803.9 / 883.9 160 / 160
Review of Systems
-
All other systems: Reviewed and negative
Physical Exam
-
General: No Apparent Distress
HEENT: Moist Mucous Membranes, Anicteric and PERRLA
Respiratory: Clear to Auscultation; Negative Wheezes, Rales or Rhonchi
Cardiac: Regular Rhythm and S1/S2; Negative Murmur, Rub or Gallop
GI: Soft, Nontender, Nondistended, Normal Bowel Sounds and Other (RUQ drain c/d/i)
Musculoskeletal: No Edema
Skin: Warm and Dry; Negative Rash, Ulcers or Lesions
Neuro: Awake and AO x 3
Hematologic / Lymphatic: No Lymphadenopathy
Psych: Calm
Data Reviewed
-
CT Scan: Report Reviewed by me, Discussed with Patient and Discussed with Family
Labs: Labs Reviewed by me, Discussed with Patient and Discussed with Family
[2025-05-27 10:27] LABS: Hematocrit 24.0 % (37.0-47.0); Hemoglobin 8.0 g/dL (12.0-16.0)
--- NOTE | 2025-05-27 10:50 | PTCARENOTE ---
Bedside rounds with Dr. Adair. Updated with patient clinical status including posterior crackles BBS, burgundy BMs, labwork and low blood sugars. New orders received. IVF changed per order with decreased rate.
[2025-05-27 10:53] LABS: Blood Urea Nitrogen 20 mg/dl (7-17); Calcium 7.9 mg/dl (8.4-10.2); Carbon Dioxide 26 mmol/L (22-30); Chloride 108 mmol/L (98-107); Estimated Creatinine Clearance 42 ml/min; Glucose 71 mg/dl (70-99); Potassium 4.3 mmol/L (3.5-5.1); Sodium 134 mmol/L (135-145); eGFR > 60.00
[2025-05-27] MEDS: D5W 1000 IV (11:00)
--- NOTE | 2025-05-27 11:52 | PTCARENOTE ---
Report given verbally to Glenna ANDERSON in GI lab. Patient transported to GI lab via bed with portable monitor and oxygen accompanied by RN x 2.
--- NOTE | 2025-05-27 14:10 | W.PN.UPDATE ---
Update Note
Progress Note Update
I saw and evaluated the patient separately and agree with the findings and the plan of care as documented in the resident's note, with addition:
HEENT: Conjunctival pallor
CHEST: Good air entry, no wheezing
CVS: S1, S2 ok
ABD: Soft, Non tender
EXT: No edema
#1. Anemia, concerning for blood loss, ? GI source
- Dark stool noted, quite positive. No roe hematemesis, melena or hematochezia.
- CT abdomen pelvis without evidence of hematoma or retroperitoneal bleed
- Continue PPI, transfusion as needed, target hemoglobin above 7. Scheduled for EGD later today. GI service on case
- If EGD negative, will need colonoscopy for further evaluation
- Avoid antiplatelets/anticoagulants for now
#2. Shock with lactic acidosis
- Suspect primarily related to hypovolemia, responded well to IV fluid resuscitation and PRBC transfusion
- Serial lactate improving, most recently 1.3
- Patient off pressor support now. Currently receiving Ringer lactate infusion, switch to D5 in view of borderline low blood sugar.
- Continue antibiotic as prescribed. S/p IR guided drainage of collection in right upper quadrant. Fluid appears to be mostly serous with some sanguinous tea. Does not appear to be purulent. Follow-up on cultures and sensitivities.
Critical Care time 62 mins -- The patient is admitted for acute critical illness for the treatment of vital organ failure and/or prevention of further life-threatening conditions. Total care includes time spent in review of history, physical exam,
medications, hemodynamic/ventilator parameters, laboratory data, imaging and discussion with house staff, pharmacy, respiratory therapy, cell room operator, and nursing.
--- NOTE | 2025-05-27 14:37 | CM ---
Patient in OR. Northern Irish speaking. Recent admission 05/18/25 to 05/22/25 for kam. Initial assessment completed with patient's son. Patient lives with her son in a 2 story plus basement home with B/B on , 1/2 bath on , 1 step to enter. 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
patient was independent in ADL's and ambulation with a SPC. Has grab bars in the bathrooms. Does not drive. Previous in-home services with [facility] for RN, PT/OT. No HC POA. AD paperwork provided. No VA benefits. No psychiatric hospitalizations. PCP is
Dr. Alexandria Coronado. Pharmacy is [facility] in [place] in [place]. Discharge POC: Anticipate resumption of [facility] RN, PT/OT. Referral forwarded.
--- NOTE | 2025-05-27 15:15 | PTCARENOTE ---
Patient retrieved from GI lab by RN x2, accompanied via bed back to ICU. Patient is writhing and c/o pain. See MAR, pain medication given as soon as returned to floor. States that she needs to go to the bathroom. Due to anesthesia, bedrest
maintained and assisted to bedpan. Passing flatus. Son has been updated with his mom's clinical status and test results from the MD. Questions have been answered.
--- NOTE | 2025-05-27 15:27 | PN.CDI ---
CDI
- -
CDI:
Physician Documentation Request
Admit Date: 05/26/25 17:43
Dear Doctor Joao,
Patient being managed for septic shock.
Sodium results:
Laboratory Tests
05/26/25 05/27/25
14:15 10:08
Sodium 131 L 134 L
Could you please provide a diagnosis that supports the above lab abnormalities and additional evaluation/ monitoring:
Hyponatremia
Abnormal lab value clinically insignificant
Other
Use of terms such as suspected, likely, concern for, or probable (associated with a specific diagnosis that is being evaluated, monitored, or treated as if it exists) are acceptable and can be coded in the inpatient setting, when documented at the
time of discharge.
Thank you,
Felicita Rios RN, BSN
CDI Specialist
tiger text
Please use your independent medical judgment in providing your response.
--- NOTE | 2025-05-27 16:00 | PTCARENOTE ---
Essentially no change in patient's physical assessment. Right groin site with dressing CDI, site soft, good sensation and pulses RLE. BBS clear but diminished t/o. BP slightly elevated 150-170/70-80s. UO adequate. Sats 97% on 2L/nc.
--- NOTE | 2025-05-27 16:30 | PTCARENOTE ---
Patient was unable to have BM after assisted to bedpan. New purewick placed. Patient is lethargic due to anesthesia and pain medication. Pain has improved. Rest of physical assessment is unchanged. Patient kept NPO for now.
[2025-05-27 17:13] LABS: Glucose - Point of Care 184 mg/dl (70-99)
[2025-05-27] MEDS: NOVOLOG FLEXPEN-MODERATE RESISTANCE 1 UNITS SC (17:47)
[2025-05-27 18:15] LABS: Hematocrit 28.8 % (37.0-47.0); Hemoglobin 9.5 g/dL (12.0-16.0); Mean Corp Hgb Conc. 33.0 g/dL (33.0-37.0); Mean Corpuscular Volume 95.0 fL (81.0-99.0); Platelet Count 261 10^3/uL (130-400); Red Cell Dist. Width 15.9 % (11.5-14.5)
--- NOTE | 2025-05-27 18:40 | PTCARENOTE ---
Patient saturated with urine. Partial cares rendered, complete linen change. C/o pain with turning.
--- NOTE | 2025-05-27 19:26 | PTCARENOTE ---
Report given verbally to oncoming shift, Lizette ANDERSON. Bedside rounds complete. Questions answered.
--- NOTE | 2025-05-27 21:00 | PTCARENOTE ---
Rec'd pt resting in bed with son at bedside. Pt primarily polish speaking but able to make needs known and son interpreting basic needs. Industrial Psychology Professor ipad at bedside as well. Pt lethargic, oriented, FONSECA. Dilaudid given for pain PRN. Afebrile. Normal
sinus rhythm on monitor. BP low 100s/80s. Pulses palpable, trace pedal edema. IV fluids as ordered, accu checks q6h. HGB stable. 2L nasal cannula, 96%. 88% on room air. Crackles posteriorly, alf up. NPO status maintained. CARLOS X1 with small amount
serosang drainage. Purewick in place for urine. Will monitor.
[2025-05-27 23:50] LABS: Glucose - Point of Care 162 mg/dl (70-99)
[2025-05-28] VITALS (24 sets, daily range): BP systolic 88–124; BP diastolic 43–84; BMI 25.6
[2025-05-28] MEDS: NOVOLOG FLEXPEN-MODERATE RESISTANCE 1 UNITS SC (00:07)
--- NOTE | 2025-05-28 00:30 | PTCARENOTE ---
Pt resting comfortably, no change in previous assessment. VSS. WIll monitor
[2025-05-28] MEDS: PROTONIX 100 IV ×3 (00:37→19:22)
[2025-05-28] MEDS: DILAUDID 0.5 MG IV ×2 (00:40→04:11)
[2025-05-28] MEDS: ZOSYN 50 IV ×4 (04:07→23:43)
[2025-05-28 04:26] LABS: Hematocrit 27.1 % (37.0-47.0); Hemoglobin 9.4 g/dL (12.0-16.0); Mean Corp Hgb Conc. 34.7 g/dL (33.0-37.0); Mean Corpuscular Volume 90.9 fL (81.0-99.0); Platelet Count 267 10^3/uL (130-400); Red Cell Dist. Width 15.7 % (11.5-14.5)
[2025-05-28 04:54] LABS: Blood Urea Nitrogen 17 mg/dl (7-17); Calcium 7.4 mg/dl (8.4-10.2); Carbon Dioxide 26 mmol/L (22-30); Chloride 107 mmol/L (98-107); Estimated Creatinine Clearance 42 ml/min; Glucose 110 mg/dl (70-99); Potassium 4.3 mmol/L (3.5-5.1); Sodium 134 mmol/L (135-145); eGFR > 60.00
--- NOTE | 2025-05-28 04:57 | PTCARENOTE ---
AM care provided. Labs sent and pending. Son at bedside and updated on pt status. No change in previous assessment. Will monitor.
[2025-05-28] MEDS: NOVOLOG FLEXPEN-MODERATE RESISTANCE SC ×3 (06:50→16:55)
--- NOTE | 2025-05-28 07:15 | PTCARENOTE ---
Patient received lying still in bed with eyes closed, respirations nonlabored. She rouses easily to name called. A&O, cooperative. I speak some Tuvaluan so I am able to limitedly communicate with her. Son Latrell is at the bedside to assist. She denies
dizziness, CP or SOB. Minimal abdominal discomfort. BBS with fine scattered crackles t/o. Removed oxygen to assess sats; Sats 88% on RA, oxygen at 2L/nc replaced. S1S2 regular with positive murmur. SR on CM. Abdomen soft, tender RUQ with positive
normal bowel sounds. Assisted to BSC, positive voids but no BM, positive flatus. Assisted back to bed. Clear liquid tray ordered per GI orders for diet. Bed in low and locked position, bed alarm on, call tilley within reach.
--- NOTE | 2025-05-28 08:06 | W.PN.GI.CBS2 ---
Addendum entered and electronically signed by Maci Craven DO 05/28/25 09:11:
The patient was seen and examined by me independently in collaboration with the nurse practitioner.
Past medical history/social history/medications/allergies/family history reviewed.
Lab data and imaging data reviewed.
Patient seen in follow-up, son at bedside. s/p EGD yesterday with findings of superficial esophageal ulcers, one nonbleeding superficial gastric ulcer in the prepyloric region of the stomach and a few duodenal ulcers with visible vessel, initially
treated with epinephrine and bipolar cautery, which was unsuccessful. Dr. Barnhart attempted to place 1 ovesco clip without success, after which he placed a 2nd ovesco clip with adequate hemostasis. Hemoglobin is stable this morning, no blood
transfusions required overnight.
Plan:
-c/w Protonix gtt
-trial of clear liquids, if no bleeding and stable hgb, will advance tomorrow morning
-if rebleeds, needs IR intervention
-continue antibiotics for GB collection
-advised patient's son that immediate travel is not advised as she would be increased risk for blood clot
-Avoid NSAIDs-- etiology of duodenal ulcer
Original Note:
Today's Communication / Plan
-
s/p EGD with duodenal ulcers with a visible vessel
trend hbg stable this am at 9.4 -- total 3 units given during admission
cont protonix gtt
slow trial of clear diet
cont abx started with GB collection cont per medical team
update son at bedside
son assist with language barrier as also hard of hearing and difficulty with v belt coverer- all question answered
advised no travel for next few weeks with current increased bleeding
NSAID avoidance
Assessment / Plan
-
Pt is an 89yo with hx NIDDM with Ozempic use, CKD stage II, osteoporosis, arthritis prior joint replacement with onset of abdominal pain admission 05/18-05/22 with acute cholecystitis and robotic lap kam 05/19. She was noted with constipation
during admission with opioid use. She now returns with persistent abdominal pain and black stools. She initially required pressor for brief period on admission. In ER noted with 4 gram drop in hbg with heme + stools and CT concern for fluid
collection in gallbladder fossa with concern for abscess vs biloma. No overt active bleeding seen and new b/l pleural effusions. Pt went to IR after admission with drain placed in GB fossa with 10ml serosanguineous drainage. In review with family,
patient was in [place] in early May with onset of abdominal pain. She was seen in 2 clinics with and give medication including Ketoloaco(supradol)-Ketrolac-injectable, medication for Panclasa (dietary supplement for stomach support) and Espraven
Enzimatico(for indigestion and gas) She then returned early from trip with kam as above. She states after kam began with black stools about 1-2 per day. After admission she was then noted with moderate amount of burgundy stool. s/p EGD
05/27 with oozing DU with visible vessel requiring ovesco clip closure.
05/27/25
- Esophageal ulcers.
- Non-bleeding gastric ulcer with no stigmata of bleeding.
- Oozing duodenal ulcers with a visible vessel. Treatment not
successful. Treated with bipolar cautery. Treatment not successful.
Clip car wrecker: Ovesco Endoscopy.
- No specimens collected.
-UGI with black/burgundy stool with Oozing duodenal ulcers with a visible vessel-- ovesco clip placed
-abdominal pain
-hypotension with concern for shock on admission
-CT concern for GB abscess s/p drainage 10ml serous sang fluid
-anemia with drop in hbg from prior admission
-hx Ketrolac-injectable NSAID use prior to kam
-s/p lap kam 05/19
other med problems:
- NIDDM with Ozempic use
-CKD stage II
-osteoporosis
-arthritis prior joint replacement
PLAN:
s/p EGD with duodenal ulcers with a visible vessel
trend hbg stable this am at 9.4 -- total 3 units given during admission
cont protonix gtt
slow trial of clear diet
cont abx started with GB collection cont per medical team
update son at bedside
son assist with language barrier as also hard of hearing and difficulty with v belt coverer- all question answered
advised no travel for next few weeks with current increased bleeding
NSAID avoidance
Subjective
Subjective
Date of Service: May 28, 2025
05/27 black burgundy stools, no further stools overnight, NPO to start clear diet slowly
Objective
Data Reviewed
Laboratory Data:
Laboratory Results
05/28/25 04:07
05/28/25 04:07
Laboratory Results
PT 14.4 Sec (11.4-14.6) 05/26/25 17:10
INR 1.07 05/26/25 17:10
APTT 30.3 Sec (23.4-35.0) 05/26/25 17:10
Phosphorus 3.9 mg/dl (2.5-4.5) 05/26/25 14:15
Magnesium 2.1 mg/dl (1.6-2.3) 05/26/25 14:15
Total Bilirubin 1.2 mg/dl (0.2-1.3) 05/27/25 03:08
AST 29 U/L (14-36) 05/27/25 03:08
ALT 60 U/L (0-35) H 05/27/25 03:08
Alkaline Phosphatase 164 U/L (38-126) H 05/27/25 03:08
Lipase 801 U/L (23-300) H 05/26/25 14:15
Vital Signs and I&O:
Vital Signs
Temp Pulse Resp BP Pulse Ox
98.7 F 67 14 88/44 93
05/28/25 03:00 05/28/25 06:00 05/28/25 06:00 05/28/25 06:00 05/28/25 06:00
I&O
05/27/25 05/28/25 05/29/25
06:59 06:59 06:59
Intake Total 1438.9 / 1518.9 1110 / 1120
Output Total 635 / 635 770 / 770
Balance 803.9 / 883.9 340 / 350
Physical Exam
Physical Exam
HEENT: Anicteric and Moist mucous membranes
Cardiology: Normal Sinus Rhythm
Pulmonary: Clear
GI: Soft, Distended (minimal ) and Tender (mild )
Extremities: No Edema
Neuro: Other (mohawk speaking- hear of hearing -- family assist with language )
--- NOTE | 2025-05-28 09:15 | W.PN.HOSP.TC ---
Today's Communication/Plan
-
s/p drain, fluid cultures no growth to date
s/p EGD showing PUD
WBC improved. UCx Klebsiella R to zosyn change to ceftriaxone. Fluid cx ngtd.
Transfer out of ICU
Assessment / Plan
Assessment / Plan
89F with Dm, CKD, recent cholecystectomy 05/19/25 p/w abd pain, found to have spetic shock, GB fossa abscess, anemia.
Septic Shock - resolved
status post Cholecystectomy with Abscess in gallbladder fossa
-started on IV Levophed now OFF
Fluid culture no growth to date.
-IV Zosyn changed to IV ceftriaxone
-IVF
-appreciate GS consult; s/p IR drainage. Per GS note, if culture remains without growth can have IR remove drain prior to patient's discharge
-IV Dilaudid PRN
Acute Blood Loss Anemia
PUD
in setting of NSAID use
-4 point Hg drop in 5 days with reports of melena 11->7.2
-patient s/p 2 units PRBC improved to 7.9
-IV Protonix
-GI consulted
EGD 05/27 showed superficial at off esophageal ulcers, gastric ulcer, duodenal ulcer with visible vessel which was unable to be treated with epinephrine and cautery, ultimately treated with 2 clips. Placed on clear liquid diet, with no plan to
advance until tomorrow morning.
-trend Hg
Per GI notes if rebleeds needs IR intervention.
DM
-hold oral anti-hyperglycemics
-hypoglycemic on Lantus 8 units qhs - hold. BG currently controlled, only on CLD, will likely need to resume insulin once diet advances.
-ISS low
Hypocalcemia
received repletion IV
resolved
Urine Klebsiella
UA not strongly positive for UTI, however culture shows Klebsiella with resistance to Zosyn, so we will change antibiotic to ceftriaxone
DVT ppx
scds
Anticipated Discharge: > 48 hours
Subjective/Interval History
-
Date of Service: May 28, 2025
Patient feeling well, denies pain, has been taking and CLD without pain or nausea or vomiting. Little bit of sore throat from the EGD. Son at bedside, acts as health care marketing specialist at patient's request.
Objective Data
-
Labs:
Laboratory Results
05/28/25
04:07
WBC 7.4
Hgb 9.4 L
Hct 27.1 L
Plt Count 267
Sodium 134 L
Potassium 4.3
Chloride 107
Carbon Dioxide 26
BUN 17
Creatinine 0.7
Glucose 110 H
Calcium 7.4 L
Vital Signs:
Vital Signs
Temp Pulse Resp BP Pulse Ox
98.7 F 67 14 88/44 93
05/28/25 03:00 05/28/25 06:00 05/28/25 06:00 05/28/25 06:00 05/28/25 06:00
I&O
05/27/25 05/28/25 05/29/25
06:59 06:59 06:59
Intake Total 1438.9 / 1518.9 1110 / 1120
Output Total 635 / 635 770 / 770
Balance 803.9 / 883.9 340 / 350
Review of Systems
-
All other systems: Reviewed and negative
Physical Exam
-
General: No Apparent Distress
HEENT: Moist Mucous Membranes, Anicteric and PERRLA
Respiratory: Clear to Auscultation; Negative Wheezes, Rales or Rhonchi
Cardiac: Regular Rhythm and S1/S2; Negative Murmur, Rub or Gallop
GI: Soft, Nontender, Nondistended, Normal Bowel Sounds and Other (RUQ drain c/d/i)
Musculoskeletal: No Edema
Skin: Warm and Dry; Negative Rash, Ulcers or Lesions
Neuro: Awake and AO x 3
Hematologic / Lymphatic: No Lymphadenopathy
Psych: Calm
Data Reviewed
-
CT Scan: Report Reviewed by me, Discussed with Patient and Discussed with Family
Labs: Labs Reviewed by me, Discussed with Patient and Discussed with Family
[2025-05-28] MEDS: NSS (PRESERVATIVE FREE) IV (09:20)
--- NOTE | 2025-05-28 10:23 | W.PN.INTV ---
Today's Communication / Plan
Recommendations
.
Assessment
-
Ofelia Hutchins is an 89F w/ PMHx T2DM and CKD and recent cholecystitis s/p lap kam on 05/19 who presented with 3 days of moderate-severe abdominal pain and was found to be hypotensive and anemic with heme+ stools.
1. Shock (Suspected Hypovolemic)
- Hypotensive on arrival, hemodynamically stable w/o pressors for >24hrs
- Decreased IVF rate based on new pleural effusions noted on CT and crackles on exam
- Continue crackles today; ordered CXR
- GB fossa abscess vs UTI for septic source
- UCx positive for Klebsiella, CARLOS drain culture pending, BCx no growth in 24 hours
- Continue Zosyn; if CARLOS drain cx negative, then can narrow abx to Ceftriaxone
- CBC stable since procedure; Daily H/H, transfuse for Hb < 7
- Monitor WBC and fever curves
2. Gallbladder Fossa Abscess vs. Biloma
- S/p lap kam 05/19
- Percutaenous drainage w/ turbid serosanguinous fluid
- CARLOS drain, minimal drainage, clear serosanguinous
- Likely not a source of infection
- Await CARLOS drain fluid culture
- Pain control PRN
3. Urinary Tract Infection
- Cx grew Klebsiella; continue Zosyn for now, narrow to Ceftriaxone if Bcx negative x 48 hours and CARLOS drain cx negative
4. Type 2 DM
- Diet restarted.
5. Bilateral Pleural Effusions
- Still few faint crackles, CXR today
- ICS
Okay to downgrade to tele
Subjective Dataa
Subjective Data
Date of Service:
Date of Service: May 28, 2025
Subjective:
Ofelia Hutchins, 89F who was admitted with shock in the setting of heme+ stool and abdominal pain, found to have peptic ulcer disease with multiple ulcers and one oozing duodenal ulcer on EGD that was unsuccessfully cauterized.
Overnight, the patient and family member endorse that she is feeling better, looking more spirited. She endorses some residual abdominal pain that is well controlled with medications. Passing gas so far, no bowel movements since the procedure and
tolerating a liquid diet, though appetite is only slowly returning.
Nursing notes that the patient had some soft blood pressures overnight, but BPs have overall been maintained and the patient has not required pressors in 24 hours. Otherwise been afebrile, is comfortable laying flat on her back and is not short of
breath.
Objective Data
Data Reviewed
Vital Signs / I&O / Oxygen:
Vital Signs
Temp Pulse Resp BP Pulse Ox
98.7 F 77 20 111/55 96
05/28/25 03:00 05/28/25 10:00 05/28/25 10:00 05/28/25 10:00 05/28/25 10:00
Intake and Output
05/27/25 05/28/25 05/29/25
06:59 06:59 06:59
Intake Total 1438.9 / 1518.9 1110 / 1130 290 / 290
Output Total 635 / 635 770 / 770 300 / 300
Balance 803.9 / 883.9 340 / 360 -10 / -10
SaO2 96
Nasal Cannula flow liters per 2
minute
Physical Exam
General: Comfortable and Fever (no)
HEENT: Normocephalic, Anicteric and Moist Mucous Membranes
Cardiovascular: S1-S2, Regular Rhythm, Peripheral Edema (no) and Cool Extremities (no)
Respiratory: Crackles and Non-Labored Respirations
GI: Soft, Non Distended and Tender (mild, diffuse)
Neurology: Awake, Alert and Oriented
Skin: Warm
Labs/Micro/Reports
Lab Data
05/28/25 04:07
05/28/25 04:07
Microbiology
05/26/25 19:14 Fluid Body Fluid Culture - Preliminary
No Growth After 18-24 Hours
05/26/25 19:14 Fluid Gram Stain - Preliminary
05/26/25 14:15 Urine Urine Culture - Final
Klebsiella pneumoniae
05/26/25 15:17 Blood/Venous Blood Culture - Preliminary
No Growth in 24 hours- Final report to follow
05/26/25 15:09 Blood/Venous Blood Culture - Preliminary
No Growth in 24 hours- Final report to follow
[2025-05-28] MEDS: DILAUDID 0.25 MG IV ×3 (11:06→22:26)
--- NOTE | 2025-05-28 11:26 | W.PN.GS2 ---
Addendum entered and electronically signed by Jean-Pierre Catalan MD 05/28/25 12:00:
I saw and examined the patient.
The Trade Show Specialist's note was reviewed and I agree with the note.
Comment: Improved, remains ttp to epigastrum primarily. Drain clear ss. Micro pending. OK to adv diet per GI recommendations. If Fluid Cx without growth would have IR DC drain prior to DC. GS will follow peripherally.
Original Note:
Today's Communication / Plan
-
clears adn PPI
Assessment / Plan
-
89F presenting with GIB s/p rCCY on 05/19/25
PPD 2 IR drain placement of fluid collection within the surgical wound bed
PPD 1 EGD with esophageal, gastric and duodenal ulcers
Afebrile, BP soft but stable, no tachycardia
Pain improved, belly soft
IR drain with clear light ss fluid (non bilious, non purulent), cx NGTD
Urine with low colony count klebsiella in the urine
Blood cx NGTD
Acute blood loss anemia on admission. H/H stable/improved s/p 3 units of pRBCs
Leukocytosis normalized
Plan:
Diet and PPI as per GI
c/w IR drain, anticipate will be able to remove prior to d/c
PRN pain meds
Avoid NSAIDs, reviewed with pt and family at bedside
SCDs only for DVT ppx
Subjective Data
-
Date of Service: May 28, 2025
Pt seen and examined at bedside with Dr Catalan. Reports she is feeling better. Denies significant pain. Taking in broth at time of exam. Denies n/v.
Objective Data
-
Intake and Output
05/27/25 05/28/25 05/29/25
06:59 06:59 06:59
Intake Total 1438.9 / 1518.9 1110 / 1130 350 / 350
Output Total 635 / 635 770 / 770 500 / 500
Balance 803.9 / 883.9 340 / 360 -150 / -150
Intake:
Oral fluids 240 / 240 240 / 240
IV fluids (Total) 898.9 / 978.9 1060 / 1080 60 / 60
D5w 1,000 ml @ 40 mls/hr IV . 680 / 690 10 / 10
Q24H VIRGIL Rx#:[id number]
Lactated Ringers 880 / 960 320 / 320
Levophed 18.9 / 18.9
Protonix 60 / 70 50 / 50
IV piggybacks 280 / 280 50 / 50 50 / 50
Amount instilled into Drain (
Total)
Right Upper Abdomen Placed in
IR
Output:
Drain Output (Total) 35 35 70 / 70
Right Upper Abdomen Placed in 35 70 / 70
IR
Urine, Voided 600 / 600 700 / 700 500 / 500
Other:
How many times incontinent 1 1
MODERATE amount urine
How many times incontinent 1
SATURATED amount urine
Number of approximated MODERATE 1
amounts of urine
Number of approximated LARGE 1
amounts of urine
Vital Signs
Temp Pulse Resp BP Pulse Ox
97.4 F 77 20 111/55 96
05/28/25 07:15 05/28/25 10:00 05/28/25 10:00 05/28/25 10:00 05/28/25 10:00
Lab Results
05/28/25 04:07
05/28/25 04:07
Calcium 7.4 mg/dl (8.4-10.2) L 05/28/25 04:07
Phosphorus 3.9 mg/dl (2.5-4.5) 05/26/25 14:15
Magnesium 2.1 mg/dl (1.6-2.3) 05/26/25 14:15
Total Bilirubin 1.2 mg/dl (0.2-1.3) 05/27/25 03:08
AST 29 U/L (14-36) 05/27/25 03:08
ALT 60 U/L (0-35) H 05/27/25 03:08
Alkaline Phosphatase 164 U/L (38-126) H 05/27/25 03:08
Total Protein 4.2 g/dl (6.3-8.2) L 05/27/25 03:08
Albumin 1.8 g/dl (3.5-5.0) L 05/27/25 03:08
Physical Exam
-
Gen: NAD
Abd: soft, incisions cdi, drain with light clear ss fluid
Patient has a wilson catheter: No
Patient has a central line: No
[2025-05-28 11:31] LABS: Glucose - Point of Care 137 mg/dl (70-99)
--- NOTE | 2025-05-28 14:46 | CM ---
Endoscopy on 05/27/25 showed esophageal, gastric and duodenal ulcers. NPO, IV/Zosyn. Discharge POC: Anticipate home with NN vs HH RN.
--- NOTE | 2025-05-28 14:52 | CM ---
Endoscopy on 05/27/25 showed esophageal, gastric and duodenal ulcers. NPO, IV/Zosyn. Discharge POC: Resume [facility] RN, PT/OT services.
[2025-05-28 17:04] LABS: Glucose - Point of Care 109 mg/dl (70-99)
--- NOTE | 2025-05-28 19:33 | PTCARENOTE ---
Report given verbally to oncoming shift, Arron ANDERSON. Bedside rounds complete. Questions answered.
[2025-05-28 22:34] LABS: Glucose - Point of Care 113 mg/dl (70-99)
--- NOTE | 2025-05-28 23:10 | PTCARENOTE ---
Patient received from ICU. Patients vitals are stable and was placed on 2L O2. Patient oriented to room and call tilley within reach.
[2025-05-28] MEDS: ANESTHETIC LOZENGE 1 LOZENGE PO (23:42)
[2025-05-29] VITALS (7 sets, daily range): BP systolic 106–134; BP diastolic 52–67; PULSE 75; O2SAT 94; BMI 24.9
[2025-05-29] MEDS: DILAUDID 0.25 MG IV ×2 (03:27→12:33)
[2025-05-29] MEDS: ZOSYN 50 IV ×3 (05:19→16:51)
[2025-05-29] MEDS: PROTONIX 100 IV ×2 (05:50→22:56)
[2025-05-29] MEDS: NOVOLOG FLEXPEN-MODERATE RESISTANCE SC (07:36)
[2025-05-29 07:47] LABS: Glucose - Point of Care 118 mg/dl (70-99)
[2025-05-29 08:07] LABS: Hematocrit 27.4 % (37.0-47.0); Hemoglobin 8.7 g/dL (12.0-16.0); Mean Corp Hgb Conc. 31.8 g/dL (33.0-37.0); Mean Corpuscular Volume 96.1 fL (81.0-99.0); Platelet Count 302 10^3/uL (130-400); Red Cell Dist. Width 15.8 % (11.5-14.5)
--- NOTE | 2025-05-29 08:32 | W.PN.HOSP.TC ---
Today's Communication/Plan
-
Continue antibiotics
Advance diet
Continue PPI
PT/OT
Assessment / Plan
Assessment / Plan
89F with Dm, CKD, recent cholecystectomy 05/19/25 p/w abd pain, found to have spetic shock, GB fossa abscess, anemia.
Septic Shock - resolved
status post Cholecystectomy with Abscess in gallbladder fossa
-started on IV Levophed now OFF
Fluid culture no growth to date.
-IV Zosyn changed to IV ceftriaxone
-IVF
-appreciate GS consult; s/p IR drainage. Per GS note, if culture remains without growth can have IR remove drain prior to patient's discharge, likely Saturday
-IV Dilaudid PRN
Acute Blood Loss Anemia
PUD
in setting of NSAID use
-4 point Hg drop in 5 days with reports of melena 11->7.2
-patient s/p 2 units PRBC improved to 7.9
-IV Protonix per GI-- change to PPI PO BID x 8 weeks, then daily indefinitely
-GI consulted, now signed off
EGD 05/27 showed superficial at off esophageal ulcers, gastric ulcer, duodenal ulcer with visible vessel which was unable to be treated with epinephrine and cautery, ultimately treated with 2 clips. Diet diet advanced to solids
-trend Hg
Per GI notes if rebleeds needs IR intervention.
DM
-hold oral anti-hyperglycemics
-hypoglycemic on Lantus 8 units qhs - hold. BG currently controlled, only on CLD, will resume insulin once diet advances.
-ISS low
Hypocalcemia
received repletion IV
resolved
Urine Klebsiella
UA not strongly positive for UTI, however culture shows Klebsiella with resistance to Zosyn, so we will change antibiotic to ceftriaxone
PT/OT for deconditioning
DVT ppx
scds
Anticipated Discharge: 24 - 48 hours
Subjective/Interval History
-
Date of Service: May 29, 2025
Patient having some pain in right upper quadrant at drain site, otherwise denies issues. Son at bedside provides Thai translation at patient's request. Still having black stools per RN.
Objective Data
-
Labs:
Laboratory Results
05/29/25
07:16
WBC 5.9
Hgb 8.7 L
Hct 27.4 L
Plt Count 302
Sodium Pending
Potassium Pending
Chloride Pending
Carbon Dioxide Pending
BUN Pending
Creatinine Pending
Glucose Pending
Calcium Pending
Total Bilirubin Pending
AST Pending
ALT Pending
Alkaline Phosphatase Pending
Vital Signs:
Vital Signs
Temp Pulse Resp BP Pulse Ox
98.4 F 75 18 134/67 96
05/29/25 03:46 05/29/25 03:46 05/29/25 03:46 05/29/25 03:46 05/29/25 03:46
I&O
05/28/25 05/29/25 05/30/25
06:59 06:59 06:59
Intake Total 1110 / 1130 1280 / 1280
Output Total 770 / 770 1655 / 1655
Balance 340 / 360 -375 / -375 - -10
Review of Systems
-
All other systems: Reviewed and negative
Physical Exam
-
General: No Apparent Distress
HEENT: Moist Mucous Membranes, Anicteric and PERRLA
Respiratory: Clear to Auscultation; Negative Wheezes, Rales or Rhonchi
Cardiac: Regular Rhythm and S1/S2; Negative Murmur, Rub or Gallop
GI: Soft, Nondistended, Normal Bowel Sounds, Tender and Other (RUQ drain c/d/i)
Musculoskeletal: No Edema
Skin: Warm and Dry; Negative Rash, Ulcers or Lesions
Neuro: Awake and AO x 3
Hematologic / Lymphatic: No Lymphadenopathy
Psych: Calm
Data Reviewed
-
CT Scan: Report Reviewed by me, Discussed with Patient and Discussed with Family
Labs: Labs Reviewed by me, Discussed with Patient and Discussed with Family
[2025-05-29 08:36] LABS: ALT (SGPT) 38 U/L (0-35); AST (SGOT) 23 U/L (14-36); Albumin 2.1 g/dl (3.5-5.0); Alkaline Phosphatase 136 U/L (38-126); Blood Urea Nitrogen 16 mg/dl (7-17); Calcium 7.2 mg/dl (8.4-10.2); Carbon Dioxide 26 mmol/L (22-30); Chloride 106 mmol/L (98-107); Estimated Creatinine Clearance 33 ml/min; Glucose 112 mg/dl (70-99); Potassium 4.2 mmol/L (3.5-5.1); Sodium 133 mmol/L (135-145); Total Protein 4.4 g/dl (6.3-8.2); eGFR > 60.00
--- NOTE | 2025-05-29 10:04 | W.PN.GI.CBS2 ---
Today's Communication / Plan
-
Advance to low residue diet. Last day of IV PPI gtt, switch to PO BID tomorrow x8 weeks, then daily indefinitely. GI will sign off, please call with questions
Assessment / Plan
-
Pt is an 89yo with hx NIDDM with Ozempic use, CKD stage II, osteoporosis, arthritis prior joint replacement with onset of abdominal pain admission 05/18-05/22 with acute cholecystitis and robotic lap kam 05/19. She was noted with constipation
during admission with opioid use. She now returns with persistent abdominal pain and black stools. She initially required pressor for brief period on admission. In ER noted with 4 gram drop in hbg with heme + stools and CT concern for fluid
collection in gallbladder fossa with concern for abscess vs biloma. No overt active bleeding seen and new b/l pleural effusions. Pt went to IR after admission with drain placed in GB fossa with 10ml serosanguineous drainage. In review with family,
patient was in [place] in early May with onset of abdominal pain. She was seen in 2 clinics with and give medication including Ketoloaco(supradol)-Ketrolac-injectable, medication for Panclasa (dietary supplement for stomach support) and Espraven
Enzimatico(for indigestion and gas) She then returned early from trip with kam as above. She states after kam began with black stools about 1-2 per day. After admission she was then noted with moderate amount of burgundy stool. s/p EGD
05/27 with oozing DU with visible vessel requiring ovesco clip closure.
05/27/25
- Esophageal ulcers.
- Non-bleeding gastric ulcer with no stigmata of bleeding.
- Oozing duodenal ulcers with a visible vessel. Treatment not
successful. Treated with bipolar cautery. Treatment not successful.
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
- No specimens collected.
-UGI with black/burgundy stool with Oozing duodenal ulcers with a visible vessel-- ovesco clip placed
-abdominal pain
-hypotension with concern for shock on admission
-CT concern for GB abscess s/p drainage 10ml serous sang fluid
-anemia with drop in hbg from prior admission
-hx Ketrolac-injectable NSAID use prior to kam
-s/p lap kam 05/19
other med problems:
- NIDDM with Ozempic use
-CKD stage II
-osteoporosis
-arthritis prior joint replacement
PLAN:
s/p EGD with duodenal ulcers with a visible vessel, hemostasis achieved with 2 ovesco clips
3 units of PRBC
trend hbg, hgb 8.7 this morning, slightly decreased from 9.4 yesterday but no signs of overt GI bleeding overnight-- total 3 units given during admission
cont protonix gtt-- change to PPI PO BID x 8 weeks, then daily indefinitely
Advance diet to low residue today
cont abx started with GB collection cont per medical team, drain management per surgery
NSAID avoidance
Subjective
Subjective
Date of Service: May 29, 2025
Patient seen in follow-up. Mild decrease in hgb but overall pretty stable without any signs of overt GI bleeding overnight.
Objective
Data Reviewed
Laboratory Data:
Laboratory Results
05/29/25 07:16
05/29/25 07:16
Laboratory Results
PT 14.4 Sec (11.4-14.6) 05/26/25 17:10
INR 1.07 05/26/25 17:10
APTT 30.3 Sec (23.4-35.0) 05/26/25 17:10
Phosphorus 3.9 mg/dl (2.5-4.5) 05/26/25 14:15
Magnesium 2.1 mg/dl (1.6-2.3) 05/26/25 14:15
Total Bilirubin 0.9 mg/dl (0.2-1.3) 05/29/25 07:16
AST 23 U/L (14-36) 05/29/25 07:16
ALT 38 U/L (0-35) H 05/29/25 07:16
Alkaline Phosphatase 136 U/L (38-126) H 05/29/25 07:16
Lipase 801 U/L (23-300) H 05/26/25 14:15
Vital Signs and I&O:
Vital Signs
Temp Pulse Resp BP Pulse Ox
98.2 F 75 18 110/53 91
05/29/25 07:43 05/29/25 07:43 05/29/25 07:43 05/29/25 07:43 05/29/25 07:43
I&O
05/28/25 05/29/25 05/30/25
06:59 06:59 06:59
Intake Total 1110 / 1130 1280 / 1280
Output Total 770 / 770 1655 / 1655
Balance 340 / 360 -375 / -375 -
Physical Exam
Physical Exam
HEENT: Anicteric and Moist mucous membranes
Cardiology: Normal Sinus Rhythm
Pulmonary: Clear
GI: Soft, Non Distended, Tender (mild ) and Other (+IR drain with minimal amount of fluid)
Extremities: No Edema
Neuro: Other
[2025-05-29] MEDS: NOVOLOG FLEXPEN-MODERATE RESISTANCE 5 UNITS SC (11:30)
[2025-05-29 12:00] LABS: Glucose - Point of Care 259 mg/dl (70-99)
[2025-05-29 16:47] LABS: Glucose - Point of Care 179 mg/dl (70-99)
[2025-05-29] MEDS: NOVOLOG FLEXPEN-MODERATE RESISTANCE 1 UNITS SC (16:51)
[2025-05-29] MEDS: TYLENOL 650 MG PO (20:31)
[2025-05-29 21:20] LABS: Glucose - Point of Care 233 mg/dl (70-99)
[2025-05-29] MEDS: LANTUS 0.1 UNITS SC (21:48)
[2025-05-30] MEDS: ZOSYN 50 IV ×2 (00:37→05:10)
[2025-05-30 03:42] VITALS: BP 128/67
[2025-05-30 05:18] VITALS: BMI 24.5
[2025-05-30 08:00] VITALS: BP 98/53
[2025-05-30 08:56] LABS: Glucose - Point of Care 172 mg/dl (70-99)
[2025-05-30] MEDS: ROCEPHIN 1000 MG IV (09:02)
[2025-05-30] MEDS: STERILE WATER FOR INJECTION 10 ML IV (09:02)
[2025-05-30] MEDS: NOVOLOG FLEXPEN-MODERATE RESISTANCE 1 UNITS SC ×3 (09:02→17:17)
[2025-05-30 09:22] LABS: Hematocrit 28.3 % (37.0-47.0); Hemoglobin 9.3 g/dL (12.0-16.0); Mean Corp Hgb Conc. 32.9 g/dL (33.0-37.0); Mean Corpuscular Volume 92.8 fL (81.0-99.0); Nucleated Red Blood Cells % 0 %; Platelet Count 346 10^3/uL (130-400); Red Cell Dist. Width 16.1 % (11.5-14.5)
[2025-05-30 09:58] LABS: Blood Urea Nitrogen 12 mg/dl (7-17); Calcium 7.8 mg/dl (8.4-10.2); Carbon Dioxide 24 mmol/L (22-30); Chloride 110 mmol/L (98-107); Estimated Creatinine Clearance 29 ml/min; Glucose 192 mg/dl (70-99); Potassium 4.1 mmol/L (3.5-5.1); Sodium 135 mmol/L (135-145); eGFR > 60.00
[2025-05-30 12:00] VITALS: BP 129/55
--- NOTE | 2025-05-30 12:14 | W.PN.HOSP.TC ---
Addendum entered and electronically signed by Jane Shepherd MD 05/30/25 18:00:
for CDI: Abnormal lab value clinically insignificant
Original Note:
Today's Communication/Plan
-
Continue antibiotics
Continue PPI
PT/OT rec HHC
requesting IR to pull drain
Assessment / Plan
Assessment / Plan
89F with Dm, CKD, recent cholecystectomy 05/19/25 p/w abd pain, found to have spetic shock, GB fossa abscess, anemia.
Septic Shock - resolved
status post Cholecystectomy with Abscess in gallbladder fossa
-started on IV Levophed now OFF
Fluid culture no growth to date.
-IV Zosyn changed to IV ceftriaxone
-IVF
-appreciate GS consult; s/p IR drainage. Per GS note, if culture remains without growth can have IR remove drain prior to patient's discharge, likely Saturday, have messaged IR to see if they are here today and can do it
-IV Dilaudid PRN
Acute Blood Loss Anemia
PUD
in setting of NSAID use
-4 point Hg drop in 5 days with reports of melena 11->7.2
-patient s/p 2 units PRBC improved to 7.9
-IV Protonix per GI-- change to PPI PO BID x 8 weeks, then daily indefinitely
-GI consulted, now signed off
EGD 05/27 showed superficial at off esophageal ulcers, gastric ulcer, duodenal ulcer with visible vessel which was unable to be treated with epinephrine and cautery, ultimately treated with 2 clips. Diet diet advanced to solids
-trend Hg
Per GI notes if rebleeds needs IR intervention.
DM
-hold oral anti-hyperglycemics
BG currently controlled, cont lantus/lispro
-ISS low
Hypocalcemia
received repletion IV
resolved
Urine Klebsiella
UA not strongly positive for UTI, however culture shows Klebsiella with resistance to Zosyn, so we will change antibiotic to ceftriaxone
PT/OT for deconditioning
DVT ppx
scds
Anticipated Discharge: 24 - 48 hours
Subjective/Interval History
-
Date of Service: May 30, 2025
Patient's pain is improved, no pain with eating, still with some dark stools, son at bedside is acting as slipman at patient's request. We discussed pulling the drain when IR is available tomorrow, he requests to see if it can be done
today so that patient can be monitored without the drain for a night prior to discharge.
Objective Data
-
Labs:
Laboratory Results
05/30/25
09:00
WBC 5.3
Hgb 9.3 L
Hct 28.3 L
Plt Count 346
Sodium 135
Potassium 4.1
Chloride 110 H
Carbon Dioxide 24
BUN 12
Creatinine 0.9
Glucose 192 H
Calcium 7.8 L
Vital Signs:
Vital Signs
Temp Pulse Resp BP Pulse Ox
98.6 F 77 17 98/53 93
05/30/25 08:00 05/30/25 08:00 05/30/25 08:00 05/30/25 08:00 05/30/25 08:00
I&O
05/29/25 05/30/25 05/31/25
06:59 06:59 06:59
Intake Total 1280 / 1280 760 / 760
Output Total 1655 / 1655 40 / 40
Balance -375 / -375 720 / 720
Review of Systems
-
All other systems: Reviewed and negative
Physical Exam
-
General: No Apparent Distress
HEENT: Moist Mucous Membranes, Anicteric and PERRLA
Respiratory: Clear to Auscultation; Negative Wheezes, Rales or Rhonchi
Cardiac: Regular Rhythm and S1/S2; Negative Murmur, Rub or Gallop
GI: Soft, Nondistended, Normal Bowel Sounds, Tender and Other (RUQ drain c/d/i)
Musculoskeletal: No Edema
Skin: Warm and Dry; Negative Rash, Ulcers or Lesions
Neuro: Awake and AO x 3
Hematologic / Lymphatic: No Lymphadenopathy
Psych: Calm
Data Reviewed
-
CT Scan: Report Reviewed by me, Discussed with Patient and Discussed with Family
Labs: Labs Reviewed by me, Discussed with Patient and Discussed with Family
[2025-05-30 13:18] LABS: Glucose - Point of Care 197 mg/dl (70-99)
[2025-05-30] MEDS: TYLENOL 650 MG PO ×2 (14:11→20:34)
[2025-05-30 15:00] VITALS: BP 108/53
[2025-05-30 17:05] LABS: Glucose - Point of Care 171 mg/dl (70-99)
[2025-05-30 19:00] VITALS: BP 110/49
[2025-05-30] MEDS: PROTONIX 40 MG PO (20:33)
[2025-05-30 21:39] LABS: Glucose - Point of Care 282 mg/dl (70-99)
[2025-05-30] MEDS: LANTUS 0.15 UNITS SC (22:30)
[2025-05-30 23:40] VITALS: BP 105/55
[2025-05-31] VITALS (7 sets, daily range): BP systolic 111–130; BP diastolic 53–66; BMI 24.3
[2025-05-31 08:16] LABS: Glucose - Point of Care 117 mg/dl (70-99)
[2025-05-31] MEDS: NOVOLOG FLEXPEN-MODERATE RESISTANCE SC (08:42)
[2025-05-31] MEDS: PROTONIX 40 MG PO ×2 (08:42→20:57)
[2025-05-31 09:18] LABS: Hematocrit 28.2 % (37.0-47.0); Hemoglobin 9.1 g/dL (12.0-16.0); Mean Corp Hgb Conc. 32.3 g/dL (33.0-37.0); Mean Corpuscular Volume 97.2 fL (81.0-99.0); Nucleated Red Blood Cells % 0 %; Platelet Count 392 10^3/uL (130-400); Red Cell Dist. Width 16.1 % (11.5-14.5)
[2025-05-31 10:03] LABS: Blood Urea Nitrogen 9 mg/dl (7-17); Calcium 7.5 mg/dl (8.4-10.2); Carbon Dioxide 23 mmol/L (22-30); Chloride 111 mmol/L (98-107); Estimated Creatinine Clearance 37 ml/min; Glucose 110 mg/dl (70-99); Potassium 4.1 mmol/L (3.5-5.1); Sodium 137 mmol/L (135-145); eGFR > 60.00
[2025-05-31] MEDS: ROCEPHIN 1000 MG IV (10:44)
[2025-05-31] MEDS: STERILE WATER FOR INJECTION 10 ML IV (10:44)
[2025-05-31 12:30] LABS: Glucose - Point of Care 167 mg/dl (70-99)
[2025-05-31] MEDS: NOVOLOG FLEXPEN-MODERATE RESISTANCE 1 UNITS SC (12:42)
--- NOTE | 2025-05-31 16:22 | W.PN.HOSP.TC ---
Today's Communication/Plan
-
see bold
Assessment / Plan
Assessment / Plan
89F with Dm, CKD, recent cholecystectomy 05/19/25 p/w abd pain, found to have spetic shock, GB fossa abscess, anemia.
Septic Shock - resolved
S/p Cholecystectomy with Abscess in gallbladder fossa
S/p IV Levophed
Fluid culture no growth to date.
IV Zosyn changed to IV ceftriaxone
Appreciate GS consult; s/p IR drainage. Per GS note, if culture remains without growth can have IR remove drain prior to patient's discharge
Discussed w/ IR 05/31, drain with high output, maintain drain for now
Drain can be removed once there is less than 10 cc of output per day for 3 days
Acute Blood Loss Anemia
PUD
in setting of NSAID use
-4 point Hg drop in 5 days with reports of melena 11->7.2
-patient s/p 2 units PRBC improved to 7.9
-IV Protonix per GI-- change to PPI PO BID x 8 weeks, then daily indefinitely
-GI consulted, now signed off
EGD 05/27 showed superficial at off esophageal ulcers, gastric ulcer, duodenal ulcer with visible vessel which was unable to be treated with epinephrine and cautery, ultimately treated with 2 clips. Diet diet advanced to solids
-trend Hg
Per GI notes if rebleeds needs IR intervention.
DM
-hold oral anti-hyperglycemics
BG currently controlled, cont lantus/lispro
-ISS low
Hypocalcemia
S/p IV repletion
resolved
Urine Klebsiella
UA not strongly positive for UTI, however culture shows Klebsiella with resistance to Zosyn, therefore antibiotics were changed to IV Rocephin
PT/OT - rec HH
DVT prophylaxis�SCDs secondary to melena
Full code
Updated son at bedside 05/31
Total time spent to see the patient on the floor, examine the patient, review data and lab results, discuss treatment plan with patient, nursing staff around 39 minutes.
Physical Exam
General: No acute distress
HEENT: Normocephalic, Atraumatic, EOMI, MMM
Respiratory: Clear to Auscultation bilaterally
Cardiac: Normal S1/S2, Regular Rate and Rhythm
GI: Soft, Nontender, distended, Normal Bowel Sounds
+drain w/ clear fluid
Extremities: No Clubbing, Cyanosis, or Edema
Neuro: Nonfocal/Grossly Intact
Anticipated Discharge: 24 - 48 hours
Subjective/Interval History
-
Date of Service: May 31, 2025
Patient reports feeling tired. She denies abdominal pain. No nausea, no vomiting. No fever.
Objective Data
-
Labs:
Laboratory Results
05/31/25
08:39
WBC 5.0
Hgb 9.1 L
Hct 28.2 L
Plt Count 392
Sodium 137
Potassium 4.1
Chloride 111 H
Carbon Dioxide 23
BUN 9
Creatinine 0.7
Glucose 110 H
Calcium 7.5 L
Vital Signs:
Vital Signs
Temp Pulse Resp BP Pulse Ox
98.6 F 83 16 111/53 97
05/31/25 15:00 05/31/25 15:00 05/31/25 15:00 05/31/25 15:00 05/31/25 15:00
I&O
05/30/25 05/31/25 06/01/25
06:59 06:59 06:59
Intake Total 760 / 760 310 / 310
Output Total 40 / 40 340 / 340
Balance 720 / 720 -30 / -30
[2025-05-31 17:29] LABS: Glucose - Point of Care 211 mg/dl (70-99)
[2025-05-31] MEDS: NOVOLOG FLEXPEN-MODERATE RESISTANCE 3 UNITS SC (17:33)
[2025-05-31] MEDS: TYLENOL 650 MG PO (20:57)
[2025-05-31 21:37] LABS: Glucose - Point of Care 231 mg/dl (70-99)
[2025-05-31] MEDS: LANTUS 0.15 UNITS SC (21:42)
[2025-06-01 06:00] VITALS: BMI 23.2
[2025-06-01 07:10] VITALS: BP 131/55
[2025-06-01 08:29] LABS: Glucose - Point of Care 100 mg/dl (70-99)
[2025-06-01] MEDS: PROTONIX 40 MG PO ×2 (08:50→19:38)
[2025-06-01] MEDS: NOVOLOG FLEXPEN-MODERATE RESISTANCE SC ×2 (08:52→17:22)
[2025-06-01] MEDS: STERILE WATER FOR INJECTION 10 ML IV (09:23)
[2025-06-01] MEDS: ROCEPHIN 1000 MG IV (09:24)
--- NOTE | 2025-06-01 09:38 | W.PN.HOSP.TC ---
Today's Communication/Plan
-
Hopeful for discharge tomorrow
Assessment / Plan
Assessment / Plan
89F with Dm, CKD, recent cholecystectomy 05/19/25 p/w abd pain, found to have spetic shock, GB fossa abscess, anemia.
Septic Shock - resolved
S/p Cholecystectomy with Abscess in gallbladder fossa
S/p IV Levophed
Fluid culture no growth to date.
IV Zosyn x 4 D changed to IV ceftriaxone D 3, will stop abx today
Appreciate GS consult; s/p IR drainage. Per GS note, if culture remains without growth can have IR remove drain prior to patient's discharge
Discussed w/ IR 05/31, drain with high output, maintain drain for now
Drain can be removed once there is less than 10 cc of output per day for 3 days
Patient will need to be discharged with her drain, asked nursing to teach family drain care
Son concerned about wound healing, asked general surgery to come back and discuss
Acute Blood Loss Anemia
PUD
in setting of NSAID use
-4 point Hg drop in 5 days with reports of melena 11->7.2
-patient s/p 3 units PRBC improved to 7.9
-IV Protonix per GI-- change to PPI PO BID x 8 weeks, then daily indefinitely
-GI consulted, now signed off
EGD 05/27 showed superficial at off esophageal ulcers, gastric ulcer, duodenal ulcer with visible vessel which was unable to be treated with epinephrine and cautery, ultimately treated with 2 clips. Diet diet advanced to solids
-trend Hg
Per GI notes if rebleeds needs IR intervention.
DM
-hold oral anti-hyperglycemics
BG currently controlled, cont lantus/lispro
-ISS low
Hypocalcemia
S/p IV repletion
resolved
Urine Klebsiella
UA not strongly positive for UTI, however culture shows Klebsiella with resistance to Zosyn, therefore antibiotics were changed to IV Rocephin x 3 days, will stop today
PT/OT - rec HH
DVT prophylaxis�SCDs secondary to melena
Full code
Updated son at bedside 06/01
Total time spent to see the patient on the floor, examine the patient, review data and lab results, discuss treatment plan with patient, nursing staff around 52 minutes.
Physical Exam
General: No acute distress
HEENT: Normocephalic, Atraumatic, EOMI, MMM
Respiratory: Clear to Auscultation bilaterally
Cardiac: Normal S1/S2, Regular Rate and Rhythm
GI: Soft, Nontender, distended, Normal Bowel Sounds
+drain w/ clear fluid
Extremities: No Clubbing, Cyanosis, or Edema
Neuro: Nonfocal/Grossly Intact
Anticipated Discharge: Within 24 hours
Subjective/Interval History
-
Date of Service: June 01, 2025
Patient witnessed to be ambulating around the hallways. She denies pain. Feels tired. Denies shortness of breath. No fever, no vomiting.
Objective Data
-
Vital Signs:
Vital Signs
Temp Pulse Resp BP Pulse Ox
97.6 F 76 18 131/55 99
06/01/25 07:10 06/01/25 07:10 06/01/25 07:10 06/01/25 07:10 06/01/25 07:10
I&O
05/31/25 06/01/25 06/02/25
06:59 06:59 06:59
Intake Total 310 / 310
Output Total 340 / 340 610 / 610
Balance -30 / -30 -600 / -600
--- NOTE | 2025-06-01 10:21 | CM ---
Chart reviewed and patient is doing well with physical therapy, and plan is to home when stable with [facility].
Plan; Home with [facility].
[2025-06-01 12:26] LABS: Glucose - Point of Care 215 mg/dl (70-99)
[2025-06-01] MEDS: NOVOLOG FLEXPEN-MODERATE RESISTANCE 3 UNITS SC (12:32)
[2025-06-01 14:52] VITALS: BP 107/52
--- NOTE | 2025-06-01 16:23 | VNURNOTE ---
[facility] liaison spoke with son. Reviewed scope of our services. Patient to resume with [facility], however, explained to son that if pt goes home w/drain, he or someone in family would need to be able to empty it. Hospital nurses would show him. If
flushes ordered, he would be shown in the hospital first. VN would assist and provide care/flushes days we visit. We would not see her daily, explained that we teach someone in the family to perform days we're not there. Son upset and 'does not
want to get involved' with anything related to the drain. He wants to speak with the Dr tomorrow. Hospitalist updated. Will follow up tomorrow.
[2025-06-01 17:09] LABS: Glucose - Point of Care 136 mg/dl (70-99)
[2025-06-01] MEDS: TYLENOL 650 MG PO (19:42)
[2025-06-01] MEDS: LANTUS 0.15 UNITS SC (21:45)
[2025-06-01 22:04] LABS: Glucose - Point of Care 253 mg/dl (70-99)
[2025-06-01 23:19] VITALS: BP 127/51
--- NOTE | 2025-06-02 02:17 | DOWNTIME ---
There was a [employer] Downtime on 06/02/2025 from 0100 to 06/02/2025 at 0215. Downtime documentation of patient's care, including medication administrations, has been reconciled in the electronic record per guidelines. Refer to the
patient's paper chart under the miscellaneous tab to see printed paper medication records and downtime forms.
[2025-06-02 05:53] VITALS: BMI 24.0
[2025-06-02 07:00] VITALS: BP 122/57
[2025-06-02 07:23] LABS: Glucose - Point of Care 85 mg/dl (70-99)
[2025-06-02] MEDS: PROTONIX 40 MG PO ×2 (08:18→20:05)
[2025-06-02] MEDS: NOVOLOG FLEXPEN-MODERATE RESISTANCE SC (08:18)
[2025-06-02 08:33] LABS: Hematocrit 28.7 % (37.0-47.0); Hemoglobin 9.2 g/dL (12.0-16.0); Mean Corp Hgb Conc. 32.1 g/dL (33.0-37.0); Mean Corpuscular Volume 97.6 fL (81.0-99.0); Platelet Count 404 10^3/uL (130-400); Red Cell Dist. Width 16.2 % (11.5-14.5)
--- NOTE | 2025-06-02 09:26 | W.PN.HOSP.TC ---
Today's Communication/Plan
-
Drain removal today
Monitor overnight
Discharge tomorrow
Assessment / Plan
Assessment / Plan
89F with Dm, CKD, recent cholecystectomy 05/19/25 p/w abd pain, found to have spetic shock, GB fossa abscess, anemia.
Septic Shock - resolved
S/p Cholecystectomy with Abscess in gallbladder fossa
S/p IV Levophed
Fluid culture no growth to date.
Status post IV Zosyn x 4 days, IV Rocephin x 3 days
Appreciate GS consult; s/p IR drainage 05/26. Cultures negative, Gram stain shows white blood cells, no organisms
Discussed w/ IR and general surgery, plan for drain removal today
Monitor overnight as son is concerned about drain output
Discharge tomorrow
Acute Blood Loss Anemia
PUD
in setting of NSAID use
-4 point Hg drop in 5 days with reports of melena 11->7.2
-patient s/p 3 units PRBC improved to 7.9
-IV Protonix per GI-- change to PPI PO BID x 8 weeks, then daily indefinitely
-GI consulted, now signed off
EGD 05/27 showed superficial at off esophageal ulcers, gastric ulcer, duodenal ulcer with visible vessel which was unable to be treated with epinephrine and cautery, ultimately treated with 2 clips. Diet diet advanced to solids
-trend Hg
Per GI notes if rebleeds needs IR intervention.
DM
-hold oral anti-hyperglycemics
BG currently controlled, cont lantus/lispro
-ISS low
Hypocalcemia
S/p IV repletion
resolved
Urine Klebsiella
UA not strongly positive for UTI, however culture shows Klebsiella with resistance to Zosyn, status post IV Zosyn x 4 days, IV Rocephin x 3 days
PT/OT - rec HH
DVT prophylaxis�SCDs secondary to melena
Full code
Updated son at bedside 06/02
Total time spent to see the patient on the floor, examine the patient, review data and lab results, discuss treatment plan with patient, nursing staff around 42 minutes.
Physical Exam
General: No acute distress
HEENT: Normocephalic, Atraumatic, EOMI, MMM
Respiratory: Clear to Auscultation bilaterally
Cardiac: Normal S1/S2, Regular Rate and Rhythm
GI: Soft, Nontender, distended, Normal Bowel Sounds
+drain w/ turbid fluid
Extremities: No Clubbing, Cyanosis, or Edema
Neuro: Nonfocal/Grossly Intact
Anticipated Discharge: Within 24 hours
Subjective/Interval History
-
Date of Service: June 02, 2025
Patient denies abd pain. Denies nausea, denies vomiting. No fever, no shortness of breath.
Objective Data
-
Labs:
Laboratory Results
06/02/25
08:03
WBC 4.1 L
Hgb 9.2 L
Hct 28.7 L
Plt Count 404 H
Sodium Pending
Potassium Pending
Chloride Pending
Carbon Dioxide Pending
BUN Pending
Creatinine Pending
Glucose Pending
Calcium Pending
Vital Signs:
Vital Signs
Temp Pulse Resp BP Pulse Ox
98.3 F 74 15 122/57 97
06/02/25 07:00 06/02/25 07:00 06/02/25 07:00 06/02/25 07:00 06/02/25 07:00
I&O
06/01/25 06/02/25 06/03/25
06:59 06:59 06:59
Intake Total 1330 / 1330
Output Total 650 / 650
Balance -640 / -640 1310 / 1310
[2025-06-02 09:37] LABS: Blood Urea Nitrogen 10 mg/dl (7-17); Calcium 7.4 mg/dl (8.4-10.2); Carbon Dioxide 24 mmol/L (22-30); Chloride 114 mmol/L (98-107); Estimated Creatinine Clearance 37 ml/min; Glucose 72 mg/dl (70-99); Magnesium 2.3 mg/dl (1.6-2.3); Potassium 4.1 mmol/L (3.5-5.1); Sodium 139 mmol/L (135-145); eGFR > 60.00
[2025-06-02 11:15] VITALS: BP 107/51
--- NOTE | 2025-06-02 11:42 | CM ---
Chart reviewed and shoe parts caser met with patient and son at bedside, per son he is waiting to speak with physician, patient to return to home with spouse, waiting to see if drain will be removed.
Plan; Home with son and [facility].
[2025-06-02 13:07] LABS: Glucose - Point of Care 167 mg/dl (70-99)
[2025-06-02] MEDS: NOVOLOG FLEXPEN-MODERATE RESISTANCE 1 UNITS SC (13:10)
[2025-06-02 15:00] VITALS: BP 127/56
[2025-06-02 16:50] LABS: Glucose - Point of Care 249 mg/dl (70-99)
[2025-06-02] MEDS: NOVOLOG FLEXPEN-MODERATE RESISTANCE 3 UNITS SC (17:19)
[2025-06-02 21:16] LABS: Glucose - Point of Care 233 mg/dl (70-99)
[2025-06-02] MEDS: LANTUS 0.15 UNITS SC (21:54)
[2025-06-02 23:45] VITALS: BP 130/51
[2025-06-03 05:15] VITALS: BMI 24.1
[2025-06-03 07:18] LABS: Glucose - Point of Care 108 mg/dl (70-99)
[2025-06-03 08:12] VITALS: BP 107/40
[2025-06-03] MEDS: NOVOLOG FLEXPEN-MODERATE RESISTANCE SC (08:43)
[2025-06-03] MEDS: PROTONIX 40 MG PO ×2 (08:51→20:31)
--- NOTE | 2025-06-03 09:20 | W.PN.HOSP.TC ---
Today's Communication/Plan
-
see bold
Assessment / Plan
Assessment / Plan
89F with Dm, CKD, recent cholecystectomy 05/19/25 p/w abd pain, found to have spetic shock, GB fossa abscess, anemia.
Septic Shock - resolved
S/p Cholecystectomy with Abscess in gallbladder fossa
S/p IV Levophed
Fluid culture no growth to date.
Status post IV Zosyn x 4 days, IV Rocephin x 3 days
Appreciate GS consult; s/p IR drainage 05/26. Cultures negative, Gram stain shows white blood cells, no organisms
Discussed w/ IR and general surgery, plan for drain study and drain removal today
Discharge today
Acute Blood Loss Anemia
PUD
in setting of NSAID use
-4 point Hg drop in 5 days with reports of melena 11->7.2
-patient s/p 3 units PRBC improved to 7.9
-IV Protonix per GI-- change to PPI PO BID x 8 weeks, then daily indefinitely
-GI consulted, now signed off
EGD 05/27 showed superficial at off esophageal ulcers, gastric ulcer, duodenal ulcer with visible vessel which was unable to be treated with epinephrine and cautery, ultimately treated with 2 clips. Diet diet advanced to solids
-trend Hg
Per GI notes if rebleeds needs IR intervention.
DM
-hold oral anti-hyperglycemics
BG currently controlled, cont lantus/lispro
-ISS low
Hypocalcemia
S/p IV repletion
resolved
Urine Klebsiella
UA not strongly positive for UTI, however culture shows Klebsiella with resistance to Zosyn, status post IV Zosyn x 4 days, IV Rocephin x 3 days
PT/OT - rec HH
DVT prophylaxis�SCDs secondary to melena
Full code
Updated son at bedside 06/03
Total time spent to see the patient on the floor, examine the patient, review data and lab results, discuss treatment plan with patient, nursing staff around 38 minutes.
Physical Exam
General: No acute distress
HEENT: Normocephalic, Atraumatic, EOMI, MMM
Respiratory: Clear to Auscultation bilaterally
Cardiac: Normal S1/S2, Regular Rate and Rhythm
GI: Soft, Nontender, distended, Normal Bowel Sounds
+drain w/ turbid fluid
Extremities: No Clubbing, Cyanosis, or Edema
Neuro: Nonfocal/Grossly Intact
Anticipated Discharge: Today
Subjective/Interval History
-
Date of Service: June 03, 2025
Patient denies abdominal pain. No nausea, no vomiting. No chest pain, no shortness of breath. No official fever, no dysuria, no cough.
Objective Data
-
Vital Signs:
Vital Signs
Temp Pulse Resp BP Pulse Ox
100.1 F 79 16 107/40 100
06/03/25 08:12 06/03/25 08:12 06/03/25 08:12 06/03/25 08:12 06/03/25 08:12
I&O
06/02/25 06/03/25 06/04/25
06:59 06:59 06:59
Intake Total 1330 / 1330 250 / 250 10 10
Output Total 20 / 20 540 / 540 10 10
Balance 1310 / 1310 -290 / -290 0 / 0
--- NOTE | 2025-06-03 09:35 | W.PN.UPDATE ---
Update Note
Progress Note Update
Delayed entry from 06/02/25
I spoke with the pt son at length by phone. I explained the cultures from the drain fluid are negative. I advised him that the volume and character of the drain output is normal and not at all concerning. I recommended the drain be removed. He
verbalized understanding and agreed to proceed with drain removal. I spoke with IR as well and they agreed to proceed.
--- NOTE | 2025-06-03 10:17 | CM ---
Addendum entered by Fang Marmolejo 06/03/25 16:44:
IMM provided to patient and son, son to appeal discharge, all paperwork will be submitted for appeal as requested by son, physician and nurse made aware.
Original Note:
Chart reviewed and patient is for discharge to home when stable, with [facility], per surgery plan is to remove drain.
Plan; Home with [facility]
[2025-06-03 10:51] LABS: ALT (SGPT) 30 U/L (0-35); AST (SGOT) 29 U/L (14-36); Albumin 2.7 g/dl (3.5-5.0); Alkaline Phosphatase 129 U/L (38-126); Blood Urea Nitrogen 10 mg/dl (7-17); Calcium 7.7 mg/dl (8.4-10.2); Carbon Dioxide 22 mmol/L (22-30); Chloride 111 mmol/L (98-107); Estimated Creatinine Clearance 37 ml/min; Glucose 203 mg/dl (70-99); Magnesium 2.2 mg/dl (1.6-2.3); Potassium 3.9 mmol/L (3.5-5.1); Sodium 134 mmol/L (135-145); Total Protein 5.7 g/dl (6.3-8.2); eGFR > 60.00
[2025-06-03 11:20] LABS: Hematocrit 28.5 % (37.0-47.0); Hemoglobin 9.5 g/dL (12.0-16.0); Mean Corp Hgb Conc. 33.3 g/dL (33.0-37.0); Mean Corpuscular Volume 94.1 fL (81.0-99.0); Platelet Count 437 10^3/uL (130-400); Red Cell Dist. Width 15.8 % (11.5-14.5)
[2025-06-03 11:59] LABS: Glucose - Point of Care 190 mg/dl (70-99)
[2025-06-03 12:32] LABS: Nucleated Red Blood Cells % 0 %
[2025-06-03] MEDS: NOVOLOG FLEXPEN-MODERATE RESISTANCE 1 UNITS SC ×2 (12:44→18:23)
--- NOTE | 2025-06-03 14:54 | VNURNOTE ---
Chart reviewed. [facility]ed. Liaison called son. Reviewed that PM-VN can see pt tomorrow for a home visit. Son originally wanted pt's primary VN. Explained to son that she is off tomorrow but another VN could see his mom. Son then declined a
visit tomorrow, agreeable to a visit next week. [facility] Intake updated.
[2025-06-03 15:13] VITALS: BP 124/74
[2025-06-03] MEDS: TYLENOL 650 MG PO (15:34)
[2025-06-03 17:20] LABS: Glucose - Point of Care 170 mg/dl (70-99)
[2025-06-03 21:23] LABS: Glucose - Point of Care 232 mg/dl (70-99)
[2025-06-03] MEDS: LANTUS 0.15 UNITS SC (22:20)
[2025-06-03 23:49] VITALS: BP 115/57
[2025-06-04 06:00] VITALS: BMI 23.9
[2025-06-04 07:00] VITALS: BP 102/71
[2025-06-04 07:31] LABS: Glucose - Point of Care 119 mg/dl (70-99)
[2025-06-04] MEDS: NOVOLOG FLEXPEN-MODERATE RESISTANCE SC ×2 (08:33→13:26)
--- NOTE | 2025-06-04 09:06 | W.PN.HOSP.TC ---
Today's Communication/Plan
-
Discharge home today
Assessment / Plan
Assessment / Plan
89F with Dm, CKD, recent cholecystectomy 05/19/25 p/w abd pain, found to have spetic shock, GB fossa abscess, anemia.
Septic Shock - resolved
S/p Cholecystectomy with Abscess in gallbladder fossa
S/p IV Levophed
Fluid culture no growth to date.
Status post IV Zosyn x 4 days, IV Rocephin x 3 days
Appreciate GS consult; s/p IR drainage 05/26. Cultures negative, Gram stain shows white blood cells, no organisms
Status post drain study with drain removal 06/03
Discharge today
Acute Blood Loss Anemia
PUD
in setting of NSAID use
-4 point Hg drop in 5 days with reports of melena 11->7.2
-patient s/p 3 units PRBC improved to 7.9
-IV Protonix per GI-- change to PPI PO BID x 8 weeks, then daily indefinitely
-GI consulted, now signed off
EGD 05/27 showed superficial at off esophageal ulcers, gastric ulcer, duodenal ulcer with visible vessel which was unable to be treated with epinephrine and cautery, ultimately treated with 2 clips. Diet diet advanced to solids
-trend Hg
Per GI notes if rebleeds needs IR intervention.
DM
-hold oral anti-hyperglycemics
BG currently controlled, cont lantus/lispro
-ISS low
Hypocalcemia
S/p IV repletion
resolved
Urine Klebsiella
UA not strongly positive for UTI, however culture shows Klebsiella with resistance to Zosyn, status post IV Zosyn x 4 days, IV Rocephin x 3 days
PT/OT - rec HH
DVT prophylaxis�SCDs secondary to melena
Full code
Updated son at bedside 06/04
Physical Exam
General: No acute distress
HEENT: Normocephalic, Atraumatic, EOMI, MMM
Respiratory: Clear to Auscultation bilaterally
Cardiac: Normal S1/S2, Regular Rate and Rhythm
GI: Soft, Nontender, distended, Normal Bowel Sounds
Extremities: No Clubbing, Cyanosis, or Edema
Neuro: Nonfocal/Grossly Intact
Anticipated Discharge: Today
Subjective/Interval History
-
Date of Service: June 04, 2025
Patient reports having some abdominal pain and discomfort after her drain removal last night. She did not feel well to go home. She feels much better today. Abdominal pain resolved. She tolerated a diet. No fever, no vomiting.
Objective Data
-
Vital Signs:
Vital Signs
Temp Pulse Resp BP Pulse Ox
98.6 F 72 20 102/71 95
06/04/25 07:00 06/04/25 07:00 06/04/25 07:00 06/04/25 07:00 06/04/25 07:00
I&O
06/03/25 06/04/25 06/05/25
06:59 06:59 06:59
Intake Total 250 / 250 730 / 730
Output Total 540 / 540
Balance -290 / -290 720 / 720
[2025-06-04 09:35] VITALS: BP 112/57; O2SAT 97
--- NOTE | 2025-06-04 09:52 | CM ---
Patient's son is appealing his mothers discharge all paperwork submitted will awat determination, plan is to home with [facility].
Plan; Await determination of appeal, plan will be to home with [facility].
[2025-06-04] MEDS: PROTONIX 40 MG PO (10:04)
[2025-06-04 11:48] LABS: Glucose - Point of Care 185 mg/dl (70-99)
[2025-06-04 15:04] VITALS: BP 109/56
--- NOTE | 2025-06-04 17:24 | W.DCSUMMARY ---
Discharge Summary
Discharge Data
Date of Admission: 05/26/25
Date of Discharge: 06/04/25
-
Pending Results: No
Hospital Course
Discharge diagnosis:
Multifactorial shock, due to hemorrhagic shock and possible septic shock
Fluid in gallbladder fossa, abscess ruled out
Acute urinary tract infection
Acute blood loss anemia
Peptic ulcer disease
Type 2 diabetes
Hypocalcemia
Consults: Independent Film Maker, general surgery, GI
Procedures:
05/26/2025: Biliary drain placement by IR
05/27/2025
EGD Impression:
- Esophageal ulcers.
- Non-bleeding gastric ulcer with no stigmata of bleeding.
- Oozing duodenal ulcers with a visible vessel. Treatment not
successful. Treated with bipolar cautery. Treatment not successful.
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
Hospital course:
89-year-old female who was recently admitted to the hospital 05/18/25-05/22/25 for acute cholecystitis status post laparoscopic cholecystectomy, discharged home, was brought back in by her son with complaints of abdominal discomfort and black stool.
Initially on admission noted to have hypotension, needing pressors briefly, but also noted to have 4 g drop in hemoglobin compared to last admission and heme positive stool.
CT scan of the abdomen and pelvis showed fluid collection in the gallbladder fossa, questionable abscess. Patient was seen in conjunction with the automobile club membership sales agent, and general surgery. She was treated with IV Zosyn. She had biliary drain placement by
IR on 05/26/2025, draining serosanguineous fluid. Gram stain showed white blood cells, no organisms. Cultures were negative.
Patient was seen in conjunction with GI for her bloody stools. Patient takes NSAIDs for pain at home. She was treated with IV protonix. She had an EGD which showed esophageal ulcers, duodenal ulcers with a visible bleeding vessel that was treated
with bipolar cautery. GI recommends permanent discontinuation of all NSAIDs. She needs to take pantoprazole 40 mg twice a day for 8 weeks, then daily indefinitely. She needs to follow-up with GI in the office to ensure ulcer healing.
Patient had a probable urinary tract infection. Urine cultures grew out Klebsiella, resistant to Zosyn, sensitive to Rocephin. She received 4 days of IV Zosyn, and then was transitioned to Rocephin for 3 days for her UTI.
Patient's fluid collection in her gallbladder fossa was not an abscess, as cultures were negative, and Gram stain only showed white blood cells, no bacteria. She had her drain removed, and is medically stable for discharge. She needs to follow-up
with her PCP in 1 week, general surgery in 2-3 weeks, as well as GI in the office.
Disposition: Home with home care
Discharge planning: Required 39 minutes
Discharge Plan
-
Patient Disposition: Home with Home Care
Discharge Diagnosis/Procedures: Septic shock, recent cholecystectomy with fluid in gallbladder fossa, acute blood loss anemia
Condition: Good
Diet: Diabetic, Carb Controlled
Activity: As tolerated
Activity Restrictions/Additional Instructions:
Please avoid all [id number] NSAID medications such as ibuprofen, naproxen, Aleve, Motrin, Advil.
Also avoid Toradol/ketorolac injections from [place].
These medications will cause bleeding of your ulcer.
GI recommends pantoprazole 40 mg twice a day for 8 weeks, then daily.
Please follow-up with GI in the office in 2-3 weeks.
Please follow-up with your PCP in 1 week.
Referrals:
Jean-Pierre Catalan MD [Active, Surgical] - in two to three weeks
Alexandria Coronado MD [Family Provider, Family Practice] - in one week
Nicolette Jimenez MD [Active, Gastroenterology] - in two to three weeks
Prescriptions:
New
pantoprazole 40 mg Tablet,Delayed Release (Dr/Ec)
40 mg PO BID Qty: 60 0RF
Continued
alendronate [Fosamax] 70 mg Tablet
70 mg PO TU
cyanocobalamin (vitamin B-12) 1,000 mcg Tablet
1,000 mcg PO DAILY
folic acid 1 mg Tablet
1 mg PO DAILY
cholecalciferol (vitamin D3) [Vitamin D3] 25 mcg (1,000 unit) Tablet
25 mcg PO DAILY
omega-3 fatty acids-fish oil 684-1,200 mg Capsule,Delayed Release(Dr/Ec)
1 cap PO DAILY
lutein 6 mg Tablet
6 mg PO BID
multivitamin Tablet
1 tab PO DAILY
glipizide 10 mg Tablet
10 mg PO BID
Januvia 100 mg Tablet
100 mg PO DAILY
psyllium Packet
1 packet PO DAILYPRN PRN (Reason: constipation)
insulin degludec 100 unit/mL (3 mL) insulin pen
18 unit SC HS
Ozempic 0.25 mg or 0.5 mg (2 mg/3 mL) Pen Injector
0.25 mg SC SA
Rx Instructions:
for 4 weeks
polyethylene glycol 3350 17 gram Powder In Packet
17 g PO DAILY Qty: 14 0RF
Rx Instructions:
Hold for loose stools
sennosides-docusate sodium [Senna Plus] 8.6-50 mg Tablet
1 tab PO BID Qty: 10 0RF
Rx Instructions:
Hold for loose stools
Discontinued
tramadol 50 mg Tablet
50 mg PO Q6HPRN PRN (Reason: mod pain po option) Qty: 20 0RF
amoxicillin-pot clavulanate [Augmentin] 500-125 mg tablet
1 tab PO BID Qty: 10 0RF
Discharge Orders:
Discharge Patient (As Directed); Ordered 06/03/25
Ordered By: Néstor Echols
Discharge Date and Time
Discharge Date/Time: 06/04/25 15:59
Print Language: ALBANIAN
== END 2025-06-04 15:59 | disposition home health service (06) | DRG 862 ==
LOC: 4 WEST ACU 17:43
PROVIDERS: Internal Medicine; Nurse Practitioner Adult Health; Nurse Practitioner Primary Care; Physician Assistant; Physician Assistant Medical; Radiology Diagnostic Radiology; ADMITTING PHYSICIAN Student in an Organized Health Care Education/Training Program; ATTENDING PHYSICIAN Family Medicine; CONSULT PHYSICIAN Internal Medicine; CONSULT PHYSICIAN Internal Medicine Gastroenterology; EMERGENCY PHYSICIAN Emergency Medicine; FAMILY PHYSICIAN Family Medicine; OTHER PHYSICIAN Surgery
PROC: 30233N1 Transfusion of Nonautologous Red Blood Cells into Peripheral Vein, Percutaneous Approach (ICD-10-PCS; 2025-05-26)
PROC: 0F9430Z Drainage of Gallbladder with Drainage Device, Percutaneous Approach (ICD-10-PCS; 2025-05-26)
PROC: 0W3P8ZZ Control Bleeding in Gastrointestinal Tract, Via Natural or Artificial Opening Endoscopic (ICD-10-PCS; 2025-05-27)
PROC: 0FP4X0Z Removal of Drainage Device from Gallbladder, External Approach (ICD-10-PCS; 2025-06-03)
DX: T81.43XA Infection following a procedure, organ and space surgical site, initial encounter (principal); A41.9 Sepsis, unspecified organism; R57.8 Other shock; R65.21 Severe sepsis with septic shock; K26.4 Chronic or unspecified duodenal ulcer with hemorrhage; D62 Acute posthemorrhagic anemia; N39.0 Urinary tract infection, site not specified; K22.10 Ulcer of esophagus without bleeding; Z16.11 Resistance to penicillins; J90 Pleural effusion, not elsewhere classified; Y83.6 Removal of other organ (partial) (total) as the cause of abnormal reaction of the patient, or of later complication, without mention of misadventure at the time of the procedure; N18.2 Chronic kidney disease, stage 2 (mild); E11.22 Type 2 diabetes mellitus with diabetic chronic kidney disease; E83.51 Hypocalcemia; K25.9 Gastric ulcer, unspecified as acute or chronic, without hemorrhage or perforation; Z90.49 Acquired absence of other specified parts of digestive tract; B96.1 Klebsiella pneumoniae [K. pneumoniae] as the cause of diseases classified elsewhere; Z79.83 Long term (current) use of bisphosphonates; Z79.84 Long term (current) use of oral hypoglycemic drugs; M81.0 Age-related osteoporosis without current pathological fracture; Z96.653 Presence of artificial knee joint, bilateral; Z88.1 Allergy status to other antibiotic agents; Z79.4 Long term (current) use of insulin; Z79.85 Long-term (current) use of injectable non-insulin antidiabetic drugs; K21.9 Gastro-esophageal reflux disease without esophagitis; M41.9 Scoliosis, unspecified
CPT/HCPCS: 49406; 49424; 71045; 74174; 76080; 80048; 80053; 81003; 81015; 82962; 83605; 83690; 83735; 84100; 85014; 85018; 85025; 85027; 85610; 85730; 86850; 86900; 86901; 86920; 87015; 87040; 87070; 87077; 87086; 87186; 87205; 90662; 93005; 96365; 96367; 96375; 96376; 97110; 97116; 97162; 97166; 97530; 97535; 99152; 99285; G0008; P9016; Q9967